=== PATIENT | male | born 1945 | race Caucasian/White ===

== ENCOUNTER → 2018-01-23 11:09 | Outpatient (CLI) | payer MEDICARE, SELFPAY ==
--- NOTE | 2018-01-23 11:09 | DT_ITS ---
This patient was seen during an EMR downtime January 19, 2018 - January 26, 2018. This patient may have a combination of paper and electronic documentation or all paper documentation. All documentation is viewable within the e-chart portion of [employer] for each patient visit.
== END ==
PROVIDERS: Family Provider Family Medicine Geriatric Medicine; PCP Family Medicine Geriatric Medicine; Visit Provider Family Medicine Geriatric Medicine
DX: E11.9 Type 2 diabetes mellitus without complications (principal); I10 Essential (primary) hypertension; E55.9 Vitamin D deficiency, unspecified; E78.4 Other hyperlipidemia

== ENCOUNTER → 2018-01-27 08:21 | Outpatient (CLI) | payer MEDICARE, SELFPAY ==
[2018-01-27 09:44] LABS: Absolute Lymphocyte Count 1.62 X10^3/ul (0.83-4.51); Basophil# 0.03 X10^3/uL; Basophil% 0.3 % (0-1); Eosinophil# 0.16 X10^3/uL; Eosinophils% 1.6 % (0-5); Hemoglobin 14.4 g/dl (13.0-16.5); Lymphocyte # 1.62 X10^3/ul (4.0); Lymphocyte % 16.3 % (19-41); Mean Corpuscular Hgb 32.8 pg (27.0-32.0); Mean Corpuscular Volume 102.5 fL (80-94); Mean Platelet Vol. 10.7 fl (6.2-12.0); Neutrophil # 7.02 X10^3/uL (2.7-7.7); Neutrophil % 70.5 % (47-70); POSITIVE COUNT NO; POSITIVE DIFFERENTIAL NO; POSITIVE MORPHOLOGY NO; Platelet Count 368 K/mm3 (150-450); RBC Distribution Width CV 12.9 % (11.6-14.6); RBC Distribution Width SD 48.5 fl (35.1-43.9); Red Blood Count 4.39 M/mm3 (4.6-6.2)
[2018-01-27 10:33] LABS: AST(SGOT) 10 U/L (15-37); Alanine Aminotransfer ALT/SGPT 21 U/L (16-61); Albumin, Serum 3.8 g/dL (3.2-5.0); Alkaline Phosphatase 91 U/L (45-117); Anion Gap 9 (5-15); BUN 15 mg/dL (7-18); Calcium,Total 9.2 mg/dL (8.5-10.1); Chloride 105 mmol/L (98-107); Cholesterol 96 mg/dL (200); EST Glomerular Filtration Rate 78 mL/min (>60); Est Glom Filt Rate - Afr Amer 95 mL/min (>60); Globulin 3.8 g/dL (2.2-4.2); Glucose 116 mg/dL (74-106); High Density Lipoprotein 39 mg/dL; Potassium 4.1 mmol/L (3.5-5.1); Protein, Total 7.6 g/dL (6.4-8.2); Sodium Level 143 mmol/L (136-145); Thyroid Stim Hormone (TSH) 0.81 uIU/mL (0.358-3.74); Triglycerides 76 mg/dL; Very Low Density Lipoprotein 15 mg/dL (5-40)
[2018-01-28 08:42] LABS: Vitamin D,25 Hydroxy 15.2 ng/mL (29.95-100.01)
== END ==
PROVIDERS: Family Provider Family Medicine Geriatric Medicine; PCP Family Medicine Geriatric Medicine; Visit Provider Family Medicine Geriatric Medicine
DX: E78.4 Other hyperlipidemia (principal); E55.9 Vitamin D deficiency, unspecified; E11.9 Type 2 diabetes mellitus without complications; I10 Essential (primary) hypertension
CPT/HCPCS: 36415; 80053; 80061; 82306; 84443; 85025

== ENCOUNTER → 2018-04-01 13:06 | Outpatient (CLI) | payer MEDICARE, SELFPAY ==
--- NOTE | 2018-04-01 14:32 | NEURO ---
NCS and/or EMG Patient Report Ordering Doctor: Silvano Sandy Chi DATE OF SERVICE: 04/01/18 Bony Garcia is a 72-year-old male presents for electrodiagnostic testing of the left upper limb. He reports numbness and tingling in the left hand. Electrodiagnostic findings: Prolonged left median motor distal latency with normal amplitude and conduction velocity. Prolonged left median sensory latency. Normal ulnar motor response. Normal ulnar and median F waves. Needle EMG testing shows no evidence of denervation in any muscles tested. Electrodiagnostic impression: This is an abnormal study. 1. Electrodiagnostic findings demonstrate left-sided median mononeuropathy. This is consistent with a moderate left carpal tunnel syndrome. If there are any further questions, please not hesitate to contact me
== END ==
PROVIDERS: Family Provider Family Medicine Geriatric Medicine; PCP Family Medicine Geriatric Medicine; Visit Provider Family Medicine Geriatric Medicine
DX: R20.0 Anesthesia of skin (principal)
CPT/HCPCS: 95886; 95909

== ENCOUNTER → 2018-07-27 10:55 | Outpatient (CLI) | payer MEDICARE, SELFPAY ==
[2018-07-27 13:17] LABS: Absolute Lymphocyte Count 1.68 X10^3/ul (0.83-4.51); Absolute Neutrophil Count 6.8 X10^3/uL (2.0-7.7); Basophil# 0.05 X10^3/uL; Basophil% 0.5 % (0-1); Eosinophil# 0.17 X10^3/uL; Eosinophils% 1.8 % (0-5); Hematocrit 41.7 % (40-54); Hemoglobin 12.9 g/dl (13.0-16.5); Lymphocyte # 1.68 X10^3/ul (4.0); Lymphocyte % 17.9 % (19-41); Mean Corp Hgb Conc 30.9 g/gl (32-36); Mean Corpuscular Hgb 32.7 pg (27.0-32.0); Mean Corpuscular Volume 105.6 fL (80-94); Monocyte# 0.64 X10^3/uL; Monocyte% 6.8 % (0-10); Neutrophil # 6.78 X10^3/uL (2.7-7.7); Neutrophil % 72.3 % (47-70); POSITIVE COUNT NO; POSITIVE DIFFERENTIAL NO; POSITIVE MORPHOLOGY NO; Platelet Count 263 K/mm3 (150-450); RBC Distribution Width CV 12.8 % (11.6-14.6); RBC Distribution Width SD 48.8 fl (35.1-43.9); Red Blood Count 3.95 M/mm3 (4.6-6.2); White Blood Count 9.4 K/mm3 (4.4-11.0)
[2018-07-27 13:20] LABS: Vitamin D,25 Hydroxy 41.4 ng/mL (29.95-100.01)
[2018-07-27 13:31] LABS: AST(SGOT) 18 U/L (15-37); Alanine Aminotransfer ALT/SGPT 25 U/L (16-61); Albumin, Serum 3.7 g/dL (3.2-5.0); Alkaline Phosphatase 80 U/L (45-117); Anion Gap 10 (5-15); BUN 22 mg/dL (7-18); BUN/Creat Ratio 18.6 RATIO (10-20); Calcium,Total 8.8 mg/dL (8.5-10.1); Chloride 104 mmol/L (98-107); Cholesterol 146 mg/dL (200); Creatinine, Serum 1.18 mg/dL (0.70-1.30); EST Glomerular Filtration Rate 65 mL/min (>60); Est Glom Filt Rate - Afr Amer 78 mL/min (>60); Globulin 3.8 g/dL (2.2-4.2); Glucose 208 mg/dL (74-106); High Density Lipoprotein 51 mg/dL; Potassium 4.3 mmol/L (3.5-5.1); Protein, Total 7.5 g/dL (6.4-8.2); Sodium Level 143 mmol/L (136-145); Thyroid Stim Hormone (TSH) 0.99 uIU/mL (0.358-3.74); Triglycerides 113 mg/dL; Very Low Density Lipoprotein 23 mg/dL (5-40)
== END ==
PROVIDERS: Family Provider Family Medicine Geriatric Medicine; PCP Family Medicine Geriatric Medicine; Visit Provider Family Medicine Geriatric Medicine
DX: E11.9 Type 2 diabetes mellitus without complications (principal); I10 Essential (primary) hypertension; E78.49 Other hyperlipidemia; E55.9 Vitamin D deficiency, unspecified
CPT/HCPCS: 36415; 80053; 80061; 82306; 84443; 85025

== ENCOUNTER → 2019-01-27 08:43 | Outpatient (CLI) | payer MEDICARE, SELFPAY ==
[2019-01-27 10:33] LABS: Absolute Lymphocyte Count 1.84 X10^3/ul (0.83-4.51); Absolute Neutrophil Count 6.6 X10^3/uL (2.0-7.7); Basophil# 0.05 X10^3/uL; Basophil% 0.5 % (0-1); Eosinophil# 0.24 X10^3/uL; Eosinophils% 2.4 % (0-5); Hematocrit 43.8 % (40-54); Hemoglobin 13.7 g/dl (13.0-16.5); Lymphocyte # 1.84 X10^3/ul (4.0); Lymphocyte % 18.8 % (19-41); Mean Corp Hgb Conc 31.3 g/gl (32-36); Mean Corpuscular Hgb 32.5 pg (27.0-32.0); Mean Corpuscular Volume 103.8 fL (80-94); Mean Platelet Vol. 11.1 fl (6.2-12.0); Monocyte# 1.03 X10^3/uL; Monocyte% 10.5 % (0-10); Neutrophil # 6.59 X10^3/uL (2.7-7.7); Neutrophil % 67.2 % (47-70); Platelet Count 313 K/mm3 (150-450); RBC Distribution Width CV 12.8 % (11.6-14.6); RBC Distribution Width SD 48.2 fl (35.1-43.9); Red Blood Count 4.22 M/mm3 (4.6-6.2); White Blood Count 9.8 K/mm3 (4.4-11.0)
[2019-01-27 10:34] LABS: POSITIVE COUNT NO; POSITIVE DIFFERENTIAL NO; POSITIVE MORPHOLOGY NO
[2019-01-27 10:50] LABS: Vitamin D,25 Hydroxy 20.9 ng/mL (29.95-100.01)
[2019-01-27 10:52] LABS: ALB/GLOB Ratio 1.1 RATIO (0.9-2.4); AST(SGOT) 11 U/L (15-37); Alanine Aminotransfer ALT/SGPT 28 U/L (16-61); Albumin, Serum 4.1 g/dL (3.2-5.0); Alkaline Phosphatase 83 U/L (45-117); Anion Gap 4 (5-15); BUN 20 mg/dL (7-18); BUN/Creat Ratio 14.2 RATIO (10-20); Calcium,Total 8.9 mg/dL (8.5-10.1); Chloride 108 mmol/L (98-107); Cholesterol 96 mg/dL (200); Creatinine, Serum 1.41 mg/dL (0.70-1.30); EST Glomerular Filtration Rate 52 mL/min (>60); Est Glom Filt Rate - Afr Amer 63 mL/min (>60); Globulin 3.6 g/dL (2.2-4.2); Glucose 81 mg/dL (74-106); High Density Lipoprotein 41 mg/dL; Potassium 4.4 mmol/L (3.5-5.1); Protein, Total 7.7 g/dL (6.4-8.2); Sodium Level 141 mmol/L (136-145); Thyroid Stim Hormone (TSH) 0.84 uIU/mL (0.358-3.74); Triglycerides 87 mg/dL; Very Low Density Lipoprotein 17 mg/dL (5-40)
== END ==
PROVIDERS: Family Provider Family Medicine Geriatric Medicine; PCP Family Medicine Geriatric Medicine; Visit Provider Family Medicine Geriatric Medicine
DX: E11.9 Type 2 diabetes mellitus without complications (principal); I10 Essential (primary) hypertension; E78.5 Hyperlipidemia, unspecified; E55.9 Vitamin D deficiency, unspecified
CPT/HCPCS: 36415; 80053; 80061; 82306; 84443; 85025

== ENCOUNTER → 2019-07-28 13:29 | Outpatient (CLI) | payer MEDICARE, SELFPAY ==
[2019-07-28 14:17] LABS: Absolute Lymphocyte Count 1.96 X10^3/uL (0.83-4.51); Absolute Neutrophil Count 7.1 X10^3/uL (2.0-7.7); Basophil# 0.08 X10^3/uL; Basophil% 0.8 % (0-1); Eosinophil# 0.29 X10^3/uL; Eosinophils% 2.8 % (0-5); Hematocrit 44.8 % (40-54); Hemoglobin 13.8 g/dL (13.0-16.5); Lymphocyte # 1.96 X10^3/ul (4.0); Lymphocyte % 19.2 % (19-41); Mean Corp Hgb Conc 30.8 g/dL (32-36); Mean Corpuscular Hgb 32.3 pg (27.0-32.0); Mean Corpuscular Volume 104.9 fL (80-94); Mean Platelet Vol. 11.1 fl (6.2-12.0); Monocyte# 0.76 X10^3/uL; Monocyte% 7.4 % (0-10); NRBC Flagged by Analyzer 0 % (0-5); Neutrophil # 7.08 X10^3/uL (2.7-7.7); Neutrophil % 69.4 % (47-70); Platelet Count 334 K/mm3 (150-450); RBC Distribution Width CV 12.2 % (11.6-14.6); RBC Distribution Width SD 47.9 fl (35.1-43.9); Red Blood Count 4.27 M/mm3 (4.6-6.2); White Blood Count 10.2 K/mm3 (4.4-11.0)
[2019-07-28 14:33] LABS: ALB/GLOB Ratio 1.3 RATIO (0.9-2.4); AST(SGOT) 19 U/L (15-37); Alanine Aminotransfer ALT/SGPT 28 U/L (16-61); Albumin, Serum 4.5 g/dL (3.2-5.0); Alkaline Phosphatase 78 U/L (45-117); Anion Gap 6 (5-15); BUN 20 mg/dL (7-18); BUN/Creat Ratio 14.7 RATIO (10-20); Calcium,Total 9.2 mg/dL (8.5-10.1); Chloride 105 mmol/L (98-107); Cholesterol 111 mg/dL (200); Creatinine, Serum 1.36 mg/dL (0.70-1.30); EST Glomerular Filtration Rate 55 mL/min (>60); Est Glom Filt Rate - Afr Amer 66 mL/min (>60); Globulin 3.5 g/dL (2.2-4.2); Glucose 145 mg/dL (74-106); High Density Lipoprotein 44 mg/dL; Potassium 4.2 mmol/L (3.5-5.1); Sodium Level 140 mmol/L (136-145); Thyroid Stim Hormone (TSH) 0.93 uIU/mL (0.358-3.74); Triglycerides 97 mg/dL; Very Low Density Lipoprotein 19 mg/dL (5-40)
== END ==
PROVIDERS: Family Provider Family Medicine Geriatric Medicine; PCP Family Medicine Geriatric Medicine; Visit Provider Family Medicine Geriatric Medicine
DX: E11.9 Type 2 diabetes mellitus without complications (principal); E55.9 Vitamin D deficiency, unspecified; E78.5 Hyperlipidemia, unspecified; I10 Essential (primary) hypertension
CPT/HCPCS: 36415; 80053; 80061; 82306; 84443; 85025

== ENCOUNTER → 2020-01-26 11:24 | Outpatient (CLI) | payer MEDICARE, SELFPAY ==
[2020-01-26 12:31] LABS: Absolute Lymphocyte Count 1.53 X10^3/uL (0.83-4.51); Absolute Neutrophil Count 5.9 X10^3/uL (2.0-7.7); Basophil# 0.06 X10^3/uL; Basophil% 0.7 % (0-1); Eosinophil# 0.21 X10^3/uL; Eosinophils% 2.5 % (0-5); Hematocrit 43.3 % (40-54); Hemoglobin 13.3 g/dL (13.0-16.5); Lymphocyte # 1.53 X10^3/ul (4.0); Lymphocyte % 18.3 % (19-41); Mean Corp Hgb Conc 30.7 g/dL (32-36); Mean Corpuscular Hgb 32.5 pg (27.0-32.0); Mean Corpuscular Volume 105.9 fL (80-94); Mean Platelet Vol. 11.6 fl (6.2-12.0); Monocyte# 0.64 X10^3/uL; Monocyte% 7.6 % (0-10); NRBC Flagged by Analyzer 0 % (0-5); Neutrophil # 5.91 X10^3/uL (2.7-7.7); Neutrophil % 70.7 % (47-70); Platelet Count 329 K/mm3 (150-450); RBC Distribution Width CV 12.6 % (11.6-14.6); RBC Distribution Width SD 49.2 fl (35.1-43.9); Red Blood Count 4.09 M/mm3 (4.6-6.2); White Blood Count 8.4 K/mm3 (4.4-11.0)
[2020-01-26 12:53] LABS: Vitamin D,25 Hydroxy 18.4 ng/mL
[2020-01-26 12:57] LABS: ALB/GLOB Ratio 1.2 RATIO (0.9-2.4); AST(SGOT) 18 U/L (15-37); Alanine Aminotransfer ALT/SGPT 25 U/L (16-61); Albumin, Serum 4.2 g/dL (3.2-5.0); Alkaline Phosphatase 87 U/L (45-117); Anion Gap 6 (5-15); BUN 16 mg/dL (7-18); BUN/Creat Ratio 10.7 RATIO (10-20); Calcium,Total 9.3 mg/dL (8.5-10.1); Chloride 109 mmol/L (98-107); Cholesterol 100 mg/dL (200); Creatinine, Serum 1.49 mg/dL (0.70-1.30); EST Glomerular Filtration Rate 49 mL/min (>60); Est Glom Filt Rate - Afr Amer 59 mL/min (>60); Globulin 3.6 g/dL (2.2-4.2); Glucose 105 mg/dL (74-106); High Density Lipoprotein 39 mg/dL; Potassium 4.1 mmol/L (3.5-5.1); Protein, Total 7.8 g/dL (6.4-8.2); Sodium Level 143 mmol/L (136-145); Thyroid Stim Hormone (TSH) 0.63 uIU/mL (0.358-3.74); Triglycerides 91 mg/dL; Very Low Density Lipoprotein 18 mg/dL (5-40)
== END ==
PROVIDERS: PCP Family Medicine Geriatric Medicine; Visit Provider Family Medicine Geriatric Medicine
DX: E11.9 Type 2 diabetes mellitus without complications (principal); E55.9 Vitamin D deficiency, unspecified; E78.5 Hyperlipidemia, unspecified; I10 Essential (primary) hypertension
CPT/HCPCS: 36415; 80053; 80061; 82306; 84443; 85025

== ENCOUNTER → 2020-08-01 10:39 | Outpatient (CLI) | payer MEDICARE, SELFPAY ==
[2020-08-01 12:19] LABS: Absolute Lymphocyte Count 1.67 X10^3/uL (0.83-4.51); Basophil# 0.07 X10^3/uL; Basophil% 0.9 % (0-1); Eosinophil# 0.18 X10^3/uL; Eosinophils% 2.4 % (0-5); Hematocrit 43.8 % (40-54); Hemoglobin 13.2 g/dL (13.0-16.5); Lymphocyte # 1.67 X10^3/ul (4.0); Lymphocyte % 22.1 % (19-41); Mean Corp Hgb Conc 30.1 g/dL (32-36); Mean Corpuscular Volume 106.3 fL (80-94); Mean Platelet Vol. 11.5 fl (6.2-12.0); Monocyte# 0.62 X10^3/uL; Monocyte% 8.2 % (0-10); NRBC Flagged by Analyzer 0 % (0-5); Neutrophil # 4.98 X10^3/uL (2.7-7.7); Platelet Count 294 K/mm3 (150-450); RBC Distribution Width CV 13.2 % (11.6-14.6); Red Blood Count 4.12 M/mm3 (4.6-6.2); White Blood Count 7.6 K/mm3 (4.4-11.0)
[2020-08-01 12:37] LABS: Vitamin D,25 Hydroxy 12.2 ng/mL
[2020-08-01 13:00] LABS: ALB/GLOB Ratio 1.2 RATIO (0.9-2.4); AST(SGOT) 11 U/L (15-37); Alanine Aminotransfer ALT/SGPT 23 U/L (16-61); Albumin, Serum 4.2 g/dL (3.2-5.0); Alkaline Phosphatase 99 U/L (45-117); Anion Gap 5 (5-15); BUN 22 mg/dL (7-18); Chloride 110 mmol/L (98-107); Cholesterol 105 mg/dL (200); Creatinine, Serum 1.47 mg/dL (0.70-1.30); EST Glomerular Filtration Rate 50 mL/min (>60); Est Glom Filt Rate - Afr Amer 60 mL/min (>60); Globulin 3.5 g/dL (2.2-4.2); Glucose 143 mg/dL (74-106); High Density Lipoprotein 50 mg/dL; Potassium 4.7 mmol/L (3.5-5.1); Protein, Total 7.7 g/dL (6.4-8.2); Sodium Level 144 mmol/L (136-145); Thyroid Stim Hormone (TSH) 0.99 uIU/mL (0.358-3.74); Triglycerides 70 mg/dL; Very Low Density Lipoprotein 14 mg/dL (5-40)
== END ==
PROVIDERS: PCP Family Medicine Geriatric Medicine; Visit Provider Family Medicine Geriatric Medicine
DX: I10 Essential (primary) hypertension (principal); E11.9 Type 2 diabetes mellitus without complications; E55.9 Vitamin D deficiency, unspecified; E78.5 Hyperlipidemia, unspecified
CPT/HCPCS: 36415; 80053; 80061; 82306; 84443; 85025

== ENCOUNTER → 2020-10-20 10:43 | Outpatient (CLI) | payer MEDICARE, SELFPAY ==
--- NOTE | 2020-10-20 10:47 | RAD_ITS ---
STUDY: X-RAY CHEST REASON FOR EXAM: Male, 75 years old. SOB TECHNIQUE: Frontal and lateral views COMPARISON: None. FINDINGS: The lungs are hyperaerated. Bilateral interstitial prominence. Small effusions with basilar atelectasis bilaterally. Normal size heart. Normal mediastinum and evelyn. Normal visualized pulmonary arteries. Normal visualized aortic arch and descending thoracic aorta. Normal visualized thoracic spine. Normal visualized ribs, clavicles, and shoulders. There is no demonstrated abnormality of the visualized soft tissue structures of the upper abdomen. RAD/Chest PA and Lateral IMPRESSION: The lungs are hyperaerated. Bilateral interstitial prominence. Small effusions with basilar atelectasis bilaterally. Electronically Signed: Raghav Sierra DO at 17:18 EST Tel [phone], Service support ,
== END ==
PROVIDERS: PCP Family Medicine Geriatric Medicine; Referring Provider Family Medicine Geriatric Medicine; Visit Provider Family Medicine Geriatric Medicine
DX: R06.02 Shortness of breath (principal)
CPT/HCPCS: 71046

== ENCOUNTER → 2020-11-23 10:01 | Outpatient (CLI) | payer MEDICARE, SELFPAY ==
--- NOTE | 2020-11-24 08:43 | PFT ---
INTRODUCTION: The patient is a 75-year-old male that presents for pulmonary function studies secondary to a diagnosis of shortness of breath. Respiratory therapy reports good patient effort. Bronchodilators were used during testing. INTERPRETATION: Forced expiration spirometry demonstrates the presence of a very severe large airways obstructive ventilatory defect. There was no significant response to aerosolized bronchodilators. Spirograms are of fair quality but do not plateau indicating slow emptying of the lungs. Body plethysmography was performed and reveals lung volumes to be within normal limits. Diffusing capacity by single breath CO is reduced at 42% of predicted. IMPRESSION: Irreversible very severe large airways obstructive ventilatory defect with preserved lung volumes and symmetric reduction in diffusing capacity.
== END ==
PROVIDERS: PCP Family Medicine Geriatric Medicine; Referring Provider Family Medicine Geriatric Medicine; Visit Provider Family Medicine Geriatric Medicine
DX: R06.02 Shortness of breath (principal)
CPT/HCPCS: 94060; 94726; 94729

== ENCOUNTER → 2021-01-25 12:08 | Outpatient (CLI) | payer MEDICARE, SELFPAY ==
[2021-01-25 12:31] LABS: Absolute Lymphocyte Count 1.83 X10^3/uL (0.83-4.51); Basophil# 0.07 X10^3/uL; Basophil% 0.7 % (0-1); Eosinophil# 0.16 X10^3/uL; Eosinophils% 1.6 % (0-5); Hematocrit 40.8 % (40-54); Hemoglobin 12.4 g/dL (13.0-16.5); Lymphocyte # 1.83 X10^3/ul (0.83-4.51); Lymphocyte % 18.6 % (19-41); Mean Corp Hgb Conc 30.4 g/dL (32-36); Mean Corpuscular Hgb 31.5 pg (27.0-32.0); Mean Corpuscular Volume 103.6 fL (80-94); Monocyte# 0.74 X10^3/uL; Monocyte% 7.5 % (0-10); NRBC Flagged by Analyzer 0 % (0-5); Neutrophil # 6.97 X10^3/uL (2.7-7.7); Neutrophil % 71.1 % (47-70); Platelet Count 305 K/mm3 (150-450); RBC Distribution Width CV 13.7 % (11.6-14.6); RBC Distribution Width SD 52.6 fl (35.1-43.9); Red Blood Count 3.94 M/mm3 (4.6-6.2); White Blood Count 9.8 K/mm3 (4.4-11.0)
[2021-01-25 12:54] LABS: ALB/GLOB Ratio 1.1 RATIO (0.9-2.4); AST(SGOT) 10 U/L (15-37); Alanine Aminotransfer ALT/SGPT 17 U/L (16-61); Albumin, Serum 3.9 g/dL (3.2-5.0); Alkaline Phosphatase 101 U/L (45-117); Anion Gap 4 (5-15); BUN 22 mg/dL (7-18); BUN/Creat Ratio 10.9 RATIO (10-20); Chloride 112 mmol/L (98-107); Creatinine, Serum 2.02 mg/dL (0.70-1.30); EST Glomerular Filtration Rate 34 mL/min (>60); Est Glom Filt Rate - Afr Amer 42 mL/min (>60); Globulin 3.4 g/dL (2.2-4.2); Glucose 139 mg/dL (74-106); Potassium 4.7 mmol/L (3.5-5.1); Protein, Total 7.3 g/dL (6.4-8.2); Sodium Level 144 mmol/L (136-145)
[2021-01-25 13:07] LABS: D-Dimer Quantitative (DVT/PE) 0.65 FEU/ug/m (0.27-0.49)
== END ==
PROVIDERS: PCP Family Medicine Geriatric Medicine; Visit Provider Family Medicine Geriatric Medicine
DX: R60.9 Edema, unspecified (principal); R06.89 Other abnormalities of breathing; R06.02 Shortness of breath; R06.9 Unspecified abnormalities of breathing
CPT/HCPCS: 36415; 80053; 83880; 85025; 85379

== ENCOUNTER → 2021-01-26 11:15 | Outpatient (CLI) | payer MEDICARE, SELFPAY ==
--- NOTE | 2021-01-26 11:30 | RAD_ITS ---
STUDY: X-RAY CHEST REASON FOR EXAM: Male, 75 years old. SOB TECHNIQUE: PA and lateral views of the chest. COMPARISON: 10/20/2020 FINDINGS: There is hyperinflation of the lungs consistent with chronic obstructive lung disease (COPD). There is no demonstrated pleural abnormality. Normal size heart. Normal mediastinum and evelyn. Normal visualized pulmonary arteries. Normal visualized aortic arch and descending thoracic aorta. Normal visualized thoracic spine. Normal visualized ribs, clavicles, and shoulders. There is no demonstrated abnormality of the visualized soft tissue structures of the upper abdomen. RAD/Chest PA and Lateral IMPRESSION: Emphysema without pneumonia or atelectasis. Electronically Signed: Trent Estevez MD at 11:19 EDT Tel , Service support ,
[2021-01-26 13:42] LABS: BNP,B-Type NATRIURETIC PEPTIDE 1882.7 pg/mL (0-100)
[2021-01-26 13:45] LABS: CPK Total, Creatine Kinase 261 U/L (39-308)
[2021-01-27 10:05] LABS: Myoglobin, Serum 288 ng/mL (28-72)
== END ==
PROVIDERS: PCP Family Medicine Geriatric Medicine; Referring Provider Family Medicine Geriatric Medicine; Visit Provider Family Medicine Geriatric Medicine
DX: I50.9 Heart failure, unspecified (principal); R06.02 Shortness of breath
CPT/HCPCS: 36415; 71046; 82550; 83874; 83880; 84484

== ENCOUNTER → 2021-02-06 10:58 | Outpatient (CLI) | payer MEDICARE, SELFPAY ==
--- NOTE | 2021-02-06 11:00 | ECHOCS_ITS ---
Reason For Study: CHF Procedure This was a 2D Doppler, Color Flow transthoracic echocardiogram. The study was technically difficult. Contrast injection was performed. Exam performed in department. Left Ventricle Normal LV size. Moderate global left ventricular systolic dysfunction. The estimated ejection fraction is 35 %. Unable to assess diastolic dysfunction. Right Ventricle Normal RV size. Normal systolic function. Atria Normal left atrium. Normal right atrium. No doppler evidence for ASD. Bubble contrast study negative for right to left interatrial shunt. Mitral Valve There is no mitral annular calcification. Normal mitral valve. Trivial mitral valve insufficiency. Tricuspid Valve Normal tricuspid valve. Trivial tricuspid valve insufficiency. Unable to estimate RV systolic pressure/pulmonary artery pressure due to technically difficult study. Aortic Valve Trisinus/trileaflet aortic valve. Mild focal aortic valve calcification. Pulmonic Valve The pulmonic valve is not well visualized. Great Vessels The aortic root is not well visualized. Pericardium/Pleural No pericardial effusion. Medication 22 gauge I.V. with prn adaptor inserted into right arm. Diluted definity 3ml given slow IV push to enhance endocardial definition. Performed a rapid injection of agitated mix of 9 cc saline and 1cc air to assess for atrial septal defect. MMode/2D Measurements & Calculations LVIDd: 5.7 cm IVSd: 0.93 cm LA dimension: 3.2 cm LVIDs: 4.6 cm LVPWd: 1.2 cm FS: 19.9 % LAV(MOD-sp4): 30.1 ml LA A4 area: 13.3 cm2 RA A4 area: 11.1 cm2 Time Measurements MV dec time: 0.23 sec Doppler Measurements & Calculations MV E max mauricio: 73.6 cm/sec Ao V2 max: 122.6 cm/sec LV V1 max: 94.4 cm/sec MV A max mauricio: 66.1 cm/sec Ao max P.2 mmHg LV V1 max P.8 mmHg MV E/A: 1.1 PA V2 max: 91.6 cm/sec ECHO/Echo Complete W/ Contrast Interpretation Summary The study was technically difficult. Contrast injection was performed. Moderate global left ventricular systolic dysfunction. The estimated ejection fraction is 35 %. Trivial mitral valve insufficiency. Trivial tricuspid valve insufficiency. Mild focal aortic valve calcification. Unable to estimate RV systolic pressure/pulmonary artery pressure due to techni chante difficult study. Unable to assess diastolic dysfunction. Ordering Physician: Slivano Sandy Referring Physician: Silvano Sandy Chi Performed By: Mendez Presley RCS
== END ==
PROVIDERS: PCP Family Medicine Geriatric Medicine; Referring Provider Family Medicine Geriatric Medicine; Visit Provider Family Medicine Geriatric Medicine
DX: I50.9 Heart failure, unspecified (principal); R06.02 Shortness of breath
CPT/HCPCS: 93306; Q9957; A4216; C8929; J3490

== ENCOUNTER → 2021-02-07 13:29 | Outpatient (CLI) | payer MEDICARE, SELFPAY ==
[2021-02-07 17:05] LABS: Anion Gap 7 (5-15); BUN 69 mg/dL (7-18); BUN/Creat Ratio 28.6 RATIO (10-20); Calcium,Total 9.3 mg/dL (8.5-10.1); Chloride 107 mmol/L (98-107); Creatinine, Serum 2.41 mg/dL (0.70-1.30); EST Glomerular Filtration Rate 28 mL/min (>60); Est Glom Filt Rate - Afr Amer 34 mL/min (>60); Glucose 200 mg/dL (74-106); Potassium 4.8 mmol/L (3.5-5.1); Sodium Level 141 mmol/L (136-145)
== END ==
PROVIDERS: PCP Family Medicine Geriatric Medicine; Visit Provider Family Medicine Geriatric Medicine
DX: I50.23 Acute on chronic systolic (congestive) heart failure (principal)
CPT/HCPCS: 36415; 80048

== ENCOUNTER → 2021-02-09 11:07 | Outpatient (CLI) | payer MEDICARE, SELFPAY ==
[2021-02-09 13:10] LABS: Anion Gap 5 (5-15); BUN 53 mg/dL (7-18); BUN/Creat Ratio 25.1 RATIO (10-20); Calcium,Total 9.1 mg/dL (8.5-10.1); Chloride 109 mmol/L (98-107); Creatinine, Serum 2.11 mg/dL (0.70-1.30); EST Glomerular Filtration Rate 33 mL/min (>60); Est Glom Filt Rate - Afr Amer 40 mL/min (>60); Glucose 227 mg/dL (74-106); Sodium Level 138 mmol/L (136-145)
== END ==
PROVIDERS: PCP Family Medicine Geriatric Medicine; Referring Provider Family Medicine Geriatric Medicine; Visit Provider Family Medicine Geriatric Medicine
DX: N17.9 Acute kidney failure, unspecified (principal)
CPT/HCPCS: 36415; 80048

== ENCOUNTER → 2021-02-12 10:18 | Outpatient (CLI) | payer MEDICARE, SELFPAY ==
[2021-02-12 12:47] LABS: Anion Gap 7 (5-15); BUN 47 mg/dL (7-18); BUN/Creat Ratio 22.3 RATIO (10-20); Calcium,Total 9.6 mg/dL (8.5-10.1); Chloride 109 mmol/L (98-107); Creatinine, Serum 2.11 mg/dL (0.70-1.30); EST Glomerular Filtration Rate 33 mL/min (>60); Est Glom Filt Rate - Afr Amer 40 mL/min (>60); Glucose 180 mg/dL (74-106); Potassium 5.2 mmol/L (3.5-5.1); Sodium Level 139 mmol/L (136-145)
== END ==
PROVIDERS: PCP Family Medicine Geriatric Medicine; Visit Provider Family Medicine Geriatric Medicine
DX: E87.6 Hypokalemia (principal)
CPT/HCPCS: 36415; 80048

== ENCOUNTER → 2021-02-14 09:42 | Outpatient (CLI) | payer MEDICARE, SELFPAY ==
[2021-02-14 12:49] LABS: Anion Gap 5 (5-15); BUN 42 mg/dL (7-18); BUN/Creat Ratio 19.8 RATIO (10-20); Calcium,Total 9.4 mg/dL (8.5-10.1); Chloride 111 mmol/L (98-107); Creatinine, Serum 2.12 mg/dL (0.70-1.30); EST Glomerular Filtration Rate 33 mL/min (>60); Est Glom Filt Rate - Afr Amer 39 mL/min (>60); Glucose 203 mg/dL (74-106); Potassium 5.1 mmol/L (3.5-5.1); Sodium Level 139 mmol/L (136-145)
== END ==
PROVIDERS: PCP Family Medicine Geriatric Medicine; Visit Provider Family Medicine Geriatric Medicine
DX: I10 Essential (primary) hypertension (principal)
CPT/HCPCS: 36415; 80048

== ENCOUNTER → 2021-02-16 12:21 | Outpatient (CLI) | payer MEDICARE, SELFPAY ==
--- NOTE | 2021-02-16 12:37 | US_ITS ---
STUDY: RENAL ULTRASOUND - COMPLETE REASON FOR EXAM: Male, 75 years old. CKD TECHNIQUE: Ultrasound evaluation of the kidneys was performed with real-time and static avilez-scale imaging. COMPARISON: None. FINDINGS: RIGHT KIDNEY: Normal location of the right kidney, which is normal in size. The right kidney measures 9.6 cm x 4.1 cm x 5.4 cm. There is a normal cortex of the right kidney. The renal cortex measures 1.5 cm. There is no right renal mass or cyst. Multiple intrarenal calculi are seen. The largest measures 1.5 cm x 1.5 cm x 1.4 cm. There is no right hydronephrosis. DISTAL RIGHT URETER: There is non-visualization of the distal right ureter. There is no demonstrated right ureterovesical junction calculus. There is no demonstrated right ureteral jet. LEFT KIDNEY: Normal location of the left kidney, which is normal in size. The left kidney measures 10.1 cm x 4.4 cm x 5 cm. There is a normal cortex of the left kidney. The renal cortex measures 1.5 cm. There is no left renal mass or cyst. Multiple left intrarenal calculi are seen. The largest measures 1.3 cm x 1.7 cm x 0.8 cm. There is no left hydronephrosis. DISTAL LEFT URETER: There is non-visualization of the distal left ureter. There is no demonstrated left ureterovesical junction calculus. There is no demonstrated left ureteral jet. BLADDER: The distended urinary bladder has a volume of 42 ml. Multiple calculi are seen at the base of the bladder. Prostate is enlarged. US/Kidney and Bladder IMPRESSION: Multiple bilateral renal calculi. Multiple calculi are seen at the base of the bladder. Prostatic enlargement. Electronically Signed: Ariel White MD at 13:56 EDT , Service support ,
== END ==
PROVIDERS: PCP Family Medicine Geriatric Medicine; Referring Provider Internal Medicine Nephrology; Visit Provider Internal Medicine Nephrology
DX: N18.32 Chronic kidney disease, stage 3b (principal)
CPT/HCPCS: 76770

== ENCOUNTER → 2021-02-23 09:17 | Outpatient (CLI) | payer MEDICARE, SELFPAY ==
[2021-02-23 12:01] LABS: Anion Gap 4 (5-15); BUN 25 mg/dL (7-18); BUN/Creat Ratio 12.6 RATIO (10-20); Calcium,Total 9.6 mg/dL (8.5-10.1); Chloride 110 mmol/L (98-107); Creatinine, Serum 1.99 mg/dL (0.70-1.30); EST Glomerular Filtration Rate 35 mL/min (>60); Est Glom Filt Rate - Afr Amer 42 mL/min (>60); Glucose 185 mg/dL (74-106); Potassium 4.3 mmol/L (3.5-5.1); Sodium Level 141 mmol/L (136-145)
== END ==
PROVIDERS: PCP Family Medicine Geriatric Medicine; Visit Provider Family Medicine Geriatric Medicine
DX: E87.6 Hypokalemia (principal)
CPT/HCPCS: 36415; 80048

== ENCOUNTER → 2021-03-02 11:06 | Outpatient (CLI) | payer MEDICARE, SELFPAY ==
[2021-03-02 12:57] LABS: Anion Gap 8 (5-15); BUN 24 mg/dL (7-18); BUN/Creat Ratio 11.2 RATIO (10-20); Calcium,Total 8.7 mg/dL (8.5-10.1); Chloride 108 mmol/L (98-107); Creatinine, Serum 2.14 mg/dL (0.70-1.30); EST Glomerular Filtration Rate 32 mL/min (>60); Est Glom Filt Rate - Afr Amer 39 mL/min (>60); Glucose 174 mg/dL (74-106); Potassium 4.1 mmol/L (3.5-5.1); Sodium Level 142 mmol/L (136-145)
== END ==
PROVIDERS: PCP Family Medicine Geriatric Medicine; Visit Provider Family Medicine Geriatric Medicine
DX: E87.6 Hypokalemia (principal)
CPT/HCPCS: 36415; 80048

== ENCOUNTER → 2021-03-06 09:19 | Outpatient (CLI) | payer MEDICARE, SELFPAY ==
[2021-03-06 10:31] LABS: Hematocrit 43.9 % (40-54); Hemoglobin 13.6 g/dL (13.0-16.5); Mean Corpuscular Hgb 31.7 pg (27.0-32.0); Mean Corpuscular Volume 102.3 fL (80-94); Platelet Count 264 K/mm3 (150-450); RBC Distribution Width CV 13.4 % (11.6-14.6); Red Blood Count 4.29 M/mm3 (4.6-6.2); White Blood Count 7.4 K/mm3 (4.4-11.0)
[2021-03-06 10:41] LABS: Protein, Urine (Random) 61.5 mg/dL (<11.9); Protein:Creat Ratio 480 mg/g CRE (0-200)
[2021-03-06 11:13] LABS: PTHIN 148.1 pg/mL (18.4-80.1)
[2021-03-06 11:16] LABS: Albumin, Serum 3.7 g/dL (3.2-5.0); BUN 26 mg/dL (7-18); BUN/Creat Ratio 13.4 RATIO (10-20); Calcium,Total 8.8 mg/dL (8.5-10.1); Chloride 108 mmol/L (98-107); Creatinine, Serum 1.94 mg/dL (0.70-1.30); EST Glomerular Filtration Rate 36 mL/min (>60); Est Glom Filt Rate - Afr Amer 44 mL/min (>60); Glucose 188 mg/dL (74-106); Phosphorus 2.8 mg/dL (2.5-4.9); Sodium Level 143 mmol/L (136-145)
== END ==
PROVIDERS: PCP Family Medicine Geriatric Medicine; Referring Provider Internal Medicine Nephrology; Visit Provider Internal Medicine Nephrology
DX: N18.32 Chronic kidney disease, stage 3b (principal)
CPT/HCPCS: 36415; 80069; 82570; 83970; 84156; 85027

== ENCOUNTER 2021-04-17 11:54 | Inpatient (IN) | payer MEDICARE, SELFPAY ==
[2021-04-17] VITALS (14 sets, daily range): BP systolic 125–161; BP diastolic 73–90; PULSE 92–115; RESP 18–28; TEMP 36.2–37.2; O2SAT 78–100; BMI 23.5; BMI 22.5
--- NOTE | 2021-04-17 12:17 | EKG12_ITS ---
Test Reason : SOB Blood Pressure : / mmHG Vent. Rate : 107 BPM Atrial Rate : 104 BPM P-R Int : 000 ms QRS Dur : 082 ms QT Int : 334 ms P-R-T Axes : 000 -28 252 degrees QTc Int : 445 ms Ectopic atrial rhythm ST & T wave abnormality, consider lateral ischemia Abnormal ECG Confirmed by VICENTE WINN, ABHISHEK ([id number]), film or videotape editor MAGDA CRISOSTOMO ([id number]) on 04/19/2021 8:44:32 AM Referred By: Confirmed By:ABHISHEK ZHANG MD
[2021-04-17 12:30] LABS: Absolute Lymphocyte Count 0.89 X10^3/uL (0.83-4.51); Absolute Neutrophil Count 8.3 X10^3/uL (2.0-7.7); Basophil# 0.06 X10^3/uL; Basophil% 0.6 % (0-1); Eosinophil# 0.04 X10^3/uL; Eosinophils% 0.4 % (0-5); Hematocrit 40.6 % (40-54); Hemoglobin 12.4 g/dL (13.0-16.5); Lymphocyte # 0.89 X10^3/ul (0.83-4.51); Lymphocyte % 8.9 % (19-41); Mean Corp Hgb Conc 30.5 g/dL (32-36); Mean Corpuscular Hgb 31.6 pg (27.0-32.0); Mean Corpuscular Volume 103.6 fL (80-94); Mean Platelet Vol. 12.1 fl (6.2-12.0); Monocyte# 0.71 X10^3/uL; Monocyte% 7.1 % (0-10); NRBC Flagged by Analyzer 0 % (0-5); Neutrophil # 8.27 X10^3/uL (2.7-7.7); Neutrophil % 82.5 % (47-70); Platelet Count 303 K/mm3 (150-450); RBC Distribution Width CV 14.1 % (11.6-14.6); Red Blood Count 3.92 M/mm3 (4.6-6.2)
--- NOTE | 2021-04-17 12:33 | EDS_ITS ---
HPI History of Present Illness Chief Complaint: Shortness of Breath Informant: patient Narrative Narrative: Patient is a 75-year-old male with a past medical history of hypertension, hyperlipidemia, heart failure, COPD who presents to the emergency department for shortness of breath. Patient states that his initial symptoms started Friday and have been progressively getting worse. He denies experiencing this before in the past. No associated chest pain. He has been coughing up a phlegm in the morning which does help. He does have breathing treatments at home. Patient's neighbor was called over and she checked his pulse ox for him. He was satting 78% on room air. He does not wear supplemental oxygen. He was very lópez in color per the neighbor. Whenever EMS arrived they gave Solu-Medrol and breathing treatments and he has significantly improved. Patient denies any fevers or chills. No nausea/vomiting or diarrhea. He is feeling much better at time of arrival. He does not know of any sick contacts. He has been vaccinated for Covid. [facility] Medical History BPH (benign prostatic hyperplasia) Chronic HFrEF (heart failure with reduced ejection fraction) Chronic kidney disease (CKD) COPD (chronic obstructive pulmonary disease) Essential hypertension Hyperlipidemia Renal calculi Type 2 diabetes mellitus Home Medications albuterol sulfate [Ventolin HFA] 2 puff INHALATION Q4H PRN PRN 06/04/13 [History Last Taken 04/17/21] fluticasone fur. 200 mcg-umeclid 62.5 mcg-vilant 25 mcg inhalat.powder 1 inh INHALATION DAILY 03/20/21 [History Last Taken 04/17/21] glimepiride 1 mg tablet 1 mg PO DAILY 03/20/21 [History Last Taken 04/17/21] metformin 500 mg tablet 500 mg PO BID 03/20/21 [History Last Taken 04/17/21] pravastatin 40 mg tablet 40 mg PO QHS 03/20/21 [History Last Taken 04/16/21] tamsulosin 0.4 mg capsule 0.4 mg PO DAILY 03/20/21 [History Last Taken 04/16/21] carvedilol 6.25 mg tablet 6.25 mg PO BID #60 tab 04/04/21 [Rx Last Taken 04/17/21] budesonide-formoterol [Symbicort] 2 inh INHALATION DAILY 04/17/21 [History Last Taken 04/17/21] sacubitril-valsartan [Entresto] 1 tab PO BID 04/17/21 [History Last Taken 04/17/21] Allergy/AdvReac Type Severity Reaction Status Date / Time Penicillins Allergy Swelling Verified 04/17/21 12:01 Social History Smoking Status: Current every day smoker tobacco type: cigarettes ROS ROS ED Constitutional Constitutional ED: Denies chills or fever(s) Eyes Eyes: Denies change in vision ENT ENT ED: Denies epistaxis or rhinorrhea Cardiovascular Cardiovascular: Denies chest pain or palpitations Respiratory/Chest Respiratory/Chest: Reports cough, dyspnea and sputum Gastrointestinal Gastrointestinal: Denies abdominal pain, diarrhea, nausea or vomiting Musculoskeletal Musculoskeletal: Denies back pain or neck pain Integumentary Denies rash Neurologic Neurologic: Denies dizziness, headache(s) or weakness EXAM Physical Exam Const Vital Signs: 04/17/21 11:55 04/17/21 11:59 04/17/21 12:17 Temperature 97.8 F 97.8 F Temperature Source Oral Oral Pulse Rate 108 H 108 H Respiratory Rate 25 H 24 H Respiratory Effort Short of Breath Labored Blood Pressure 144/79 H 144/79 H Blood Pressure Mean 100 100 Pulse Ox 78 78 Oxygen Delivery Method Room Air Room Air Nasal Cannula Oxygen Flow Rate (L/min) 04/17/21 12:18 04/17/21 12:59 04/17/21 14:38 Temperature 99 F 97.2 F L Temperature Source Temporal Temporal Pulse Rate 107 H 115 H Respiratory Rate 23 H 28 H Respiratory Effort Blood Pressure 125/73 H 161/86 H Blood Pressure Mean 90 111 Pulse Ox 100 98 96 Oxygen Delivery Method Nasal Cannula Nasal Cannula Nasal Cannula Oxygen Flow Rate (L/min) 5 04/17/21 15:23 Temperature 98.2 F Temperature Source Temporal Pulse Rate 114 H Respiratory Rate 18 Respiratory Effort Blood Pressure 155/89 H Blood Pressure Mean 111 Pulse Ox 94 Oxygen Delivery Method Nasal Cannula Oxygen Flow Rate (L/min) Positive well nourished and well developed General Appearance ED: well developed and NAD HEENT Reports normocephalic, head/scalp atraumatic and moist mucous membranes Eyes PERRL and EOMs intact bilaterally Neck supple Chest Wall inspection of chest normal Resp normal respiratory effort and clear to auscultation bilaterally Auscultation: Negative for rales, rhonchi or wheezes Cardio regular rhythm and no murmurs Rate: tachycardic GI normal to inspection, nondistended, normoactive bowel sounds and non-tender Palpation: soft; Negative for guarding or rebound tenderness present Extremity normal to inspection General Extremety ED: Negative for edema or tenderness General Extremity: Negative for edema Neuro Sensorium / Orientation: alert Motor Exam: strength 5/5 throughout Psych mental status grossly normal Skin no rashes or lesions noted MDM MDM MDM Narrative Medical decision making narrative: Patient presents to the emergency department for shortness of breath. He did receive breathing treatments and Solu-Medrol by EMS. On arrival to the ED he is starting to feel better. He was hypoxic on room air. He is requiring supplemental oxygen at this time. He does appear more comfortable. EKG, chest x-ray and basic lab work being obtained. Patient's chest x-ray did show congestion with pleural effusions. His BNP is greater than 5000. His troponin is not significantly elevated. His creatinine is 1.73. We will give him a dose of Lasix here. Patient becomes very tachypneic upon trying to ambulate to use the restroom. He is requiring 5 L of supplemental oxygen. This time patient not requiring BiPAP but may need this if he develops any worsening symptoms. He otherwise has remained stable throughout ED stay. Will bring into the hospital for further evaluation and management. Lab Data Labs: Laboratory Results - last 24 hr 04/17/21 04/17/21 04/17/21 12:05 12:05 12:05 WBC 10.0 RBC 3.92 L Hgb 12.4 L Hct 40.6 MCV 103.6 H MCH 31.6 MCHC 30.5 L RDW Std Deviation 54.0 H RDW Coeff of Naty 14.1 Plt Count 303 MPV 12.1 H Immature Gran % (Auto) 0.500 Neut % (Auto) 82.5 H Lymph % (Auto) 8.9 L [place] % (Auto) 7.1 Eos % (Auto) 0.4 Baso % (Auto) 0.6 Absolute Neuts (auto) 8.3 H Absolute Lymphs (auto) 0.89 Nucleated RBC % 0 Sodium 141 Potassium 4.3 Chloride 110 H Carbon Dioxide 26.0 Anion Gap 5 BUN 22 H Creatinine 1.73 H Estim Creat Clear Calc 39.90 Est GFR (MDRD) Af Amer 50 L Est GFR (MDRD) Non-Af 41 L BUN/Creatinine Ratio 12.7 Glucose 194 H Calcium 9.3 Magnesium 2.2 Troponin I High Sens 23 B-Natriuretic Peptide > 5000.0 H Radiography Diagnostic Testing: Radiology Impression Chest X-Ray 04/17/21 12:45 IMPRESSION: No new focal patchy airspace opacities COPD/emphysema with coarse lung markings Stable costophrenic angle blunting Electronically Signed: Lasha Resendiz, DO at 13:05 EDT Tel , Service support , EKG Initial EKG: Attestation: I personally reviewed and interpreted this EKG as follows: (Rate of 107 bpm and sinus tachycardia. Normal intervals. Left axis deviation. No significant ST elevations or depressions. There are T wave inversions in the V5 and V6 lead.) Discharge Plan Dx/Rx/DC Orders Clinical Impression: Acute exacerbation of CHF (congestive heart failure), Hypoxia Disposition Disposition: Acute Care Hospital [facility] Discharge Date/Time: 04/17/21 16:13
--- NOTE | 2021-04-17 12:45 | RAD_ITS ---
STUDY: X-RAY CHEST REASON FOR EXAM: Male, 75 years old. Dyspnea/Hypoxia TECHNIQUE: Single AP portable view of the chest. COMPARISON: 01/26/2021. FINDINGS: Cardiac silhouette unremarkable. Pulmonary vascularity unremarkable. Aorta calcified. No new focal patchy airspace opacities. Stable costophrenic angle blunting. COPD/emphysema with coarse lung markings. Upper abdomen unremarkable. Osseous structures intact. No pneumothorax. RAD/Chest 1 View (Portable) IMPRESSION: No new focal patchy airspace opacities COPD/emphysema with coarse lung markings Stable costophrenic angle blunting Electronically Signed: Lasha Resendiz DO at 13:05 EDT Tel , Service support ,
[2021-04-17 12:46] LABS: Anion Gap 5 (5-15); BUN 22 mg/dL (7-18); BUN/Creat Ratio 12.7 RATIO (10-20); Calcium,Total 9.3 mg/dL (8.5-10.1); Chloride 110 mmol/L (98-107); Creatinine, Serum 1.73 mg/dL (0.70-1.30); EST Glomerular Filtration Rate 41 mL/min (>60); Est Glom Filt Rate - Afr Amer 50 mL/min (>60); Glucose 194 mg/dL (74-106); Magnesium 2.2 mg/dL (1.6-2.6); Potassium 4.3 mmol/L (3.5-5.1); Sodium Level 141 mmol/L (136-145); Troponin-I HS 23 pg/mL (3.0-78.0)
[2021-04-17 13:21] LABS: BNP,B-Type NATRIURETIC PEPTIDE > 5000.0 pg/mL (0-100)
[2021-04-17] MEDS: Furosemide 40 MG/4 ML Vial IV ×2 (14:17→16:57)
--- NOTE | 2021-04-17 16:06 | HP.PCM.HOS_ITS ---
HPI - General General Date of Admission: 04/17/21 HPI Narrative RAJWINDER KEYS, is a 75 M who presents with SOB since . Progressively gotten worse. Not on oxygen at baseline. Presented to ED with pulse ox was 78% on room air when he arrived. Placed on oxygen and sats were improved. Diagnosed with CHF and received IV furosemide. Feels different from when previously had CHF exacerbations in the past. [facility] Medical History BPH (benign prostatic hyperplasia) Chronic HFrEF (heart failure with reduced ejection fraction) Chronic kidney disease (CKD) COPD (chronic obstructive pulmonary disease) Essential hypertension Hyperlipidemia Renal calculi Type 2 diabetes mellitus Home Medications albuterol sulfate [Ventolin HFA] 2 puff INHALATION Q4H PRN PRN 06/04/13 [History Last Taken 04/17/21] fluticasone fur. 200 mcg-umeclid 62.5 mcg-vilant 25 mcg inhalat.powder 1 inh INHALATION DAILY 03/20/21 [History Last Taken 04/17/21] glimepiride 1 mg tablet 1 mg PO DAILY 03/20/21 [History Last Taken 04/17/21] metformin 500 mg tablet 500 mg PO BID 03/20/21 [History Last Taken 04/17/21] pravastatin 40 mg tablet 40 mg PO QHS 03/20/21 [History Last Taken 04/16/21] tamsulosin 0.4 mg capsule 0.4 mg PO DAILY 03/20/21 [History Last Taken 04/16/21] carvedilol 6.25 mg tablet 6.25 mg PO BID #60 tab 04/04/21 [Rx Last Taken 04/17/21] budesonide-formoterol [Symbicort] 2 inh INHALATION DAILY 04/17/21 [History Last Taken 04/17/21] sacubitril-valsartan [Entresto] 1 tab PO BID 04/17/21 [History Last Taken 04/17/21] Allergy/AdvReac Type Severity Reaction Status Date / Time Penicillins Allergy Swelling Verified 04/17/21 12:01 Social History Smoking Status: Current every day smoker tobacco type: cigarettes ROS ROS Narrative No fever or chills. Denies any contacts with COVID-19. Denies lower extremity edema. All review of systems were negative except as mentioned above in the history of present illness and the other review of systems. Vital Signs Vital Signs Vital Signs: 04/17/21 11:55 04/17/21 11:59 04/17/21 12:17 Temperature 36.6 C 36.6 C Temperature Source Oral Oral Pulse Rate 108 H 108 H Respiratory Rate 25 H 24 H Respiratory Effort Short of Breath Labored Blood Pressure 144/79 H 144/79 H Blood Pressure Mean 100 100 Pulse Ox 78 78 Oxygen Delivery Method Room Air Room Air Nasal Cannula Oxygen Flow Rate (L/min) 04/17/21 12:18 04/17/21 12:59 04/17/21 14:38 Temperature 37.2 C 36.2 C L Temperature Source Temporal Temporal Pulse Rate 107 H 115 H Respiratory Rate 23 H 28 H Respiratory Effort Blood Pressure 125/73 H 161/86 H Blood Pressure Mean 90 111 Pulse Ox 100 98 96 Oxygen Delivery Method Nasal Cannula Nasal Cannula Nasal Cannula Oxygen Flow Rate (L/min) 5 04/17/21 15:23 Temperature 36.8 C Temperature Source Temporal Pulse Rate 114 H Respiratory Rate 18 Respiratory Effort Blood Pressure 155/89 H Blood Pressure Mean 111 Pulse Ox 94 Oxygen Delivery Method Nasal Cannula Oxygen Flow Rate (L/min) Weight Weight: 76.5 kg Body Mass Index (BMI) 23.5 Physical Exam Const alert Neck no lymphadenopathy Resp normal respiratory effort and no retractions Auscultation: wheezes expiratory wheezes and throughout Cardio regular rate, regular rhythm, S1 normal heart sound and S2 normal heart sound GI normal to inspection, nondistended, normoactive bowel sounds, soft to palpation, non-tender and non-distended Extremity normal to inspection and no clubbing, cyanosis or edema Skin no rashes or lesions noted and no wounds Neuro Sensorium / Orientation: awake and alert Psych affect normal Results Lab / Micro Data Result Diagrams: 04/17/21 12:05 04/17/21 12:05 Labs: Laboratory Results - last 24 hr 04/17/21 12:05: WBC 10.0, RBC 3.92 L, Hgb 12.4 L, Hct 40.6, MCV 103.6 H, MCH 31.6, MCHC 30.5 L, RDW Std Deviation 54.0 H, RDW Coeff of Naty 14.1, Plt Count 303, MPV 12.1 H, Immature Gran % (Auto) 0.500, Neut % (Auto) 82.5 H, Lymph % (Auto) 8.9 L, [place] % (Auto) 7.1, Eos % (Auto) 0.4, Baso % (Auto) 0.6, Absolute Neuts (auto) 8.3 H, Absolute Lymphs (auto) 0.89, Nucleated RBC % 0 04/17/21 12:05: Sodium 141, Potassium 4.3, Chloride 110 H, Carbon Dioxide 26.0, Anion Gap 5, BUN 22 H, Creatinine 1.73 H, Estim Creat Clear Calc 39.90, Est GFR (MDRD) Af Amer 50 L, Est GFR (MDRD) Non-Af 41 L, BUN/Creatinine Ratio 12.7, Glucose 194 H, Calcium 9.3, Magnesium 2.2, Troponin I High Sens 23 04/17/21 12:05: B-Natriuretic Peptide > 5000.0 H Micro: Microbiology 04/17/21 12:15 Interface Orders SARS-CoV-2 Antigen (Rapid) - Final Radiology Impression Chest X-Ray 04/17/21 12:45 IMPRESSION: No new focal patchy airspace opacities COPD/emphysema with coarse lung markings Stable costophrenic angle blunting Electronically Signed: Lasha Resendiz, at 13:05 EDT Tel , Service support , Assessment & Plan Assessment/Plan (1) Chronic HFrEF (heart failure with reduced ejection fraction): (2) Acute respiratory failure with hypoxia: PLAN: 1. Acute exacerbation heart failure with reduced ejection fraction EF 35% from 2D echocardiogram 02/06 Continue with IV furosemide 40 mg twice daily Continue with sacubitril/valsartan 2. Acute hypoxic respiratory failure Secondary to above Wean oxygen as able. Patient is not on oxygen at home Rapid Covid was negative, check PCR. Patient has been vaccinated for COVID-19. 3. Diabetes mellitus type 2 Hold Metformin and glyburide given his CHF exacerbation Sliding scale insulin 4. VTE prophylaxis with subcu heparin Charges/Coding Visit Charges Inpatient E&M: 06440 Init Hosp L3
--- NOTE | 2021-04-17 16:19 | PCS.PANDOC ---
PANDEMIC DOCUMENTATION INITIATED: Date: 04/02/2021 Time: 190
[2021-04-17 16:56] LABS: Bedside Glucose 217 mg/dL (70-110)
[2021-04-17] MEDS: Insulin Lispro 100 UNIT/ML INSULN.PEN SC (16:56)
[2021-04-17] MEDS: 0.9% Saline Lock 10 ML Syringe IV ×2 (16:57→22:47)
[2021-04-17] MEDS: Tamsulosin HCl 0.4 MG Capsule PO (17:18)
[2021-04-17 17:37] LABS: Troponin-I HS 28 pg/mL (3.0-78.0)
[2021-04-17] MEDS: Ipratropium/Albuterol Sulfate 3 ML AMPUL.NEB INHALATION (18:59)
[2021-04-17] MEDS: Budesonide Respules 0.5 MG/2 ML AMPUL.NEB. INHALATION (18:59)
[2021-04-17 19:26] LABS: Troponin-I HS 27 pg/mL (3.0-78.0)
[2021-04-17 20:38] LABS: Probe Check PASS; Specimen Processing Control PASS
[2021-04-17] MEDS: Pravastatin 40 MG Tablet PO (22:44)
[2021-04-17] MEDS: SACUBITRIL/VALSARTAN 49-51 MG TABLET 1 EACH PO (22:44)
[2021-04-17] MEDS: Carvedilol 6.25 MG Tablet PO (22:44)
[2021-04-17] MEDS: Heparin Injection (Vial) 5,000 UNIT/ML VIAL 5000 UNIT SC (22:55)
[2021-04-17 23:36] LABS: Bedside Glucose 251 mg/dL (70-110)
[2021-04-18] VITALS (12 sets, daily range): BP systolic 115–138; BP diastolic 76–92; PULSE 73–94; RESP 14–19; TEMP 36.3–36.7; O2SAT 92–98
[2021-04-18 05:26] LABS: AST(SGOT) 6 U/L (15-37); Alanine Aminotransfer ALT/SGPT 16 U/L (16-61); Albumin, Serum 3.2 g/dL (3.2-5.0); Alkaline Phosphatase 83 U/L (45-117); Anion Gap 6 (5-15); BUN 31 mg/dL (7-18); BUN/Creat Ratio 17.4 RATIO (10-20); Calcium,Total 8.5 mg/dL (8.5-10.1); Chloride 106 mmol/L (98-107); Creatinine, Serum 1.78 mg/dL (0.70-1.30); EST Glomerular Filtration Rate 40 mL/min (>60); Est Glom Filt Rate - Afr Amer 48 mL/min (>60); Estimated Creatinine Clearance 38.78 ml/min; Globulin 3.2 g/dL (2.2-4.2); Glucose 188 mg/dL (74-106); Potassium 4.2 mmol/L (3.5-5.1); Protein, Total 6.4 g/dL (6.4-8.2); Sodium Level 139 mmol/L (136-145)
[2021-04-18] MEDS: Insulin Lispro 100 UNIT/ML INSULN.PEN SC ×2 (06:33→17:05)
[2021-04-18] MEDS: Budesonide Respules 0.5 MG/2 ML AMPUL.NEB. INHALATION ×2 (06:48→19:46)
[2021-04-18] MEDS: Ipratropium/Albuterol Sulfate 3 ML AMPUL.NEB INHALATION ×2 (06:48→19:46)
[2021-04-18 06:56] LABS: Bedside Glucose 169 mg/dL (70-110)
[2021-04-18] MEDS: Carvedilol 6.25 MG Tablet PO ×2 (08:17→21:07)
[2021-04-18] MEDS: Heparin Injection (Vial) 5,000 UNIT/ML VIAL 5000 UNIT SC ×2 (08:17→21:08)
[2021-04-18] MEDS: Furosemide 40 MG/4 ML Vial IV ×2 (08:18→17:05)
[2021-04-18] MEDS: SACUBITRIL/VALSARTAN 49-51 MG TABLET 1 EACH PO ×2 (08:18→21:07)
--- NOTE | 2021-04-18 11:40 | CASEMGMT ---
RICARDA HENSLEY assessment: Face to Face with patient for initial transition planning/care coordination assessment. RICARDA HENSLEY introduced self and role at [facility], pt voices understanding and consents to assessment. Pt is sitting up in bed in no distress on room air. Pt is A/Ox4 and answers all questions appropriately. Pt's sister is at bedside during assessment. Care providers, pharmacy, and demographics verified. Presentation: Cough w/ white sputum since friday, more SOB than normal Admitting dx: CHF exac PCP: Du Specialists: Juan, cardio-Pt scheduled for ST 04/30 Preferred Pharmacy: [facility] [place] mail order [facility] Living Will/HPOA: Pt states has LW/HPOA and is aware that they are not on file at [facility]. Pt is unsure of his HPOA and his sister states she will try to find papers and bring in. LNOK: Senait Garzon, sister; Elizabeth Manuelluana, friend Living Arrangements: Pt states lives alone in 2 story home and states does not have to go to 2nd story. Pt states no concerns at home. Pt states is independent with ADL's. Transportation: Pt states drives self and states no transportation concerns. DME/HHC: Pt states no current DME or need for any at this time. Pt states would like [employer] preferred DME, [employer], is qualifies for home oxygen at discharge. Pt states no hx of HHC or SNF. Pt's sister inquires about HHC and palliative for pt. Pt provided with a list of HHC providers including quality and resource use data and consistent with the patient?s preferred geographic region, medical needs, and insurance network. Palliative screening tool completed and pt qualifies. Palliative referral faxed and call placed. Pt states no concerns with going home at time of discharge. Pt states is retired. Pt states smokes 1-2 cigarettes daily but does not drink ETOH. Pt states no further concerns/needs. CM to follow for HHC, home oxygen testing, and any further discharge planning/needs. Advised pt to ask for CM if any further questions/concerns/needs arise, voices understanding. Pt Goal: Home Plan: Home, pending PT/OT evals, home oxygen testing. [place] RICARDA HENSLEY
[2021-04-18 12:56] LABS: Bedside Glucose 148 mg/dL (70-110)
--- NOTE | 2021-04-18 16:02 | PCM.PN.HOSP ---
Subjective Subjective Breathing better. Taken off oxygen and pulse ox dropped down to 79% on room air at rest. Objective Data Objective Data Vital Signs: Vital Signs Temp Pulse Resp BP Pulse Ox 36.7 C 91 16 117/85 H 93 04/18/21 13:57 04/18/21 15:02 04/18/21 13:57 04/18/21 13:57 04/18/21 13:57 Oxygen Flow Rate (L/min) 2.5 Oxygen Delivery Method Nasal Cannula Weight: 72.6 kg Body Mass Index (BMI) 22.5 Intake & Output: Intake and Output for Last 24 Hours 04/16/21 04/17/21 04/18/21 23:59 23:59 23:59 Intake Total 440 / 440 520 / 520 Output Total 400 / 400 1999 / 1999 Balance 40 / 40 -1480 / -1480 Lab / Micro Data Result Diagrams: 04/17/21 12:05 04/18/21 04:44 Labs: Laboratory Results - last 24 hr 04/17/21 16:32: POC Glucose 217 H 04/17/21 17:00: Troponin I High Sens 28 04/17/21 18:40: Troponin I High Sens 27 04/17/21 19:11: COVID-19 (LOU) Negative 04/17/21 22:43: POC Glucose 251 H 04/18/21 04:44: Sodium 139, Potassium 4.2, Chloride 106, Carbon Dioxide 27.0, Anion Gap 6, BUN 31 H, Creatinine 1.78 H, Estim Creat Clear Calc 38.78, Est GFR (MDRD) Af Amer 48 L, Est GFR (MDRD) Non-Af 40 L, BUN/Creatinine Ratio 17.4, Glucose 188 H, Calcium 8.5, Total Bilirubin 0.50, AST 6 L, ALT 16, Alkaline Phosphatase 83, Total Protein 6.4, Albumin 3.2, Globulin 3.2, Albumin/Globulin Ratio 1.0 04/18/21 06:32: POC Glucose 169 H 04/18/21 12:19: POC Glucose 148 H Micro: Microbiology 04/17/21 12:15 Interface Orders SARS-CoV-2 Antigen (Rapid) - Final Physical Exam Resp normal respiratory effort and no retractions Auscultation: wheezes Cardio regular rate, regular rhythm, S1 normal heart sound and S2 normal heart sound GI normal to inspection, nondistended, normoactive bowel sounds, soft to palpation and non-distended Extremity normal to inspection and no clubbing, cyanosis or edema Assessment & Plan Assessment/Plan (1) Chronic HFrEF (heart failure with reduced ejection fraction): (2) Acute respiratory failure with hypoxia: PLAN: 1. Acute exacerbation heart failure with reduced ejection fraction EF 35% from 2D echocardiogram 02/06 Continue with IV furosemide 40 mg twice daily Continue with sacubitril/valsartan 2. Acute hypoxic respiratory failure Secondary to above Wean oxygen as able. Patient is not on oxygen at home Rapid and PCR Covid or negative. Patient has been vaccinated for COVID-19. 3. Diabetes mellitus type 2 Hold Metformin and glyburide given his CHF exacerbation Sliding scale insulin 4. CKD 3B Stable Monitor closely while on furosemide 5.VTE prophylaxis with subcu heparin Discussed with patient's at bedside Charges/Coding Visit Charges Inpatient E&M: 52858 Subs Hosp L2
[2021-04-18] MEDS: Tamsulosin HCl 0.4 MG Capsule PO (17:05)
[2021-04-18 18:41] LABS: Bedside Glucose 185 mg/dL (70-110)
[2021-04-18] MEDS: Pravastatin 40 MG Tablet PO (21:08)
[2021-04-18 21:16] LABS: Bedside Glucose 181 mg/dL (70-110)
[2021-04-19] VITALS (14 sets, daily range): BP systolic 95–128; BP diastolic 49–75; PULSE 50–102; RESP 16–20; TEMP 36.2–37; O2SAT 83–96
[2021-04-19] MEDS: Insulin Lispro 100 UNIT/ML INSULN.PEN SC ×4 (06:40→23:28)
[2021-04-19 06:51] LABS: Bedside Glucose 234 mg/dL (70-110)
[2021-04-19] MEDS: Ipratropium/Albuterol Sulfate 3 ML AMPUL.NEB INHALATION ×3 (07:21→17:56)
[2021-04-19] MEDS: Budesonide Respules 0.5 MG/2 ML AMPUL.NEB. INHALATION ×2 (07:21→17:56)
[2021-04-19 07:27] LABS: Anion Gap 4 (5-15); BUN 41 mg/dL (7-18); BUN/Creat Ratio 20.3 RATIO (10-20); Calcium,Total 8.7 mg/dL (8.5-10.1); Chloride 102 mmol/L (98-107); Creatinine, Serum 2.02 mg/dL (0.70-1.30); EST Glomerular Filtration Rate 34 mL/min (>60); Est Glom Filt Rate - Afr Amer 42 mL/min (>60); Estimated Creatinine Clearance 32.95 ml/min; Glucose 240 mg/dL (74-106); Potassium 3.8 mmol/L (3.5-5.1); Sodium Level 137 mmol/L (136-145)
[2021-04-19] MEDS: Heparin Injection (Vial) 5,000 UNIT/ML VIAL 5000 UNIT SC (09:23)
[2021-04-19] MEDS: Furosemide 40 MG/4 ML Vial IV (09:23)
[2021-04-19] MEDS: 0.9% Saline Lock 10 ML Syringe IV (09:24)
--- NOTE | 2021-04-19 10:43 | PCM.CONS.P ---
Assessment & Plan Assessment/Plan (1) Dyspnea: QUALIFIERS: Dyspnea type: dyspnea on exertion Qualified Code(s): R06.00 - Dyspnea, unspecified (2) Acute exacerbation of CHF (congestive heart failure): (3) Chronic HFrEF (heart failure with reduced ejection fraction): (4) Acute respiratory failure with hypoxia: (5) Essential hypertension: (6) Hyperlipidemia: QUALIFIERS: Hyperlipidemia type: unspecified Qualified Code(s): E78.5 - Hyperlipidemia, unspecified (7) Chronic kidney disease (CKD): QUALIFIERS: Chronic kidney disease stage: stage 3 (moderate) Chronic kidney disease stage 3 subtype: stage 3b (GFR 30-44) Qualified Code(s): N18.32 - Chronic kidney disease, stage 3b PLAN: 75-year-old male with acute on chronic CHF exacerbation, complaints of shortness of breath. Seen by palliative care for symptom management of shortness of breath and symptoms related to his comorbidities. 1. Dyspnea: Improved with diuresis. He is still requiring 4 L of oxygen, saturating at 90%. Possibly will require home O2. He is scheduled for a stress test April 30 and concerned how he is going to get there. No indication for opioids at this time for management of his dyspnea. Palliative will provide supportive care and close monitoring of his symptoms, goals would be improve quality of life, reduce symptoms, and avoid hospitalizations if possible. 2. Acute hypoxemic respiratory failure: Related to CHF and probable COPD. He does still smoke. Encouraged/counseled on smoking cessation. Again, will likely require home O2 at discharge. 3. Hypertension/HLD/CKD stage III: Complicates overall care, management, recovery, and prognosis. Defer management to specialists and PCP. Thank you for the opportunity to participate in this patient's care, please do not hesitate to contact [facility] with any further questions or concerns. Palliative direct line is [phone]. We will have a liaison come out and discuss palliative services further. Greater than 50% of F2F visit dedicated to education and counseling of palliative care services, medications, comorbid conditions and potential assistance with management, and plan of care moving forward. Start time: 1035 End time: 1115 HPI Consult Data Date of Consult: 04/19/21 HPI Narrative HPI Narrative: RAJWINDER KEYS, is a 75 M who presents to [facility] 04[facility]17[facility]21 with complaints of increased shortness of breath. Had some mild sputum production. Neighbor came over and checked on him and pulse ox was 78% on room air. He was transported by EMS to the ED for further evaluation. Found to be in CHF exacerbation, admitted for further evaluation management. Patient is being diuresed and receiving scheduled breathing treatments. He has as needed albuterol and Tylenol for pain. Patient lives alone in two-story home, reports he is independent with all ADLs. He does have a healthcare power of ip technology transactions attorney but is on sure who that is. Next of kin is Senait Garzon, his sister and friend Elizabeth Clifford. He does not have home oxygen. He is retired. He still smokes 1 to 2 cigarettes/day. He may require home O2 when discharged. Patient denies any current shortness of breath, he does have dyspnea on exertion. Continues on 4 l of oxygen. His sister is in the room, has lots of questions about home health and upcoming testing as an outpatient. I did explain palliative services, she repetitively stated its hospice. I did explain the difference between hospice and palliative, patient and sister verbalized understanding. Discussed symptom management of his shortness of breath due to CHF and respiratory failure. Patient states he is following with Dr. Martinez. Patient is on baseline inhalers at home. Denies any nausea, vomiting, diarrhea. Occasional constipation. No dizziness or syncope. He does have a cough with minimal sputum production. No numbness or tingling. Generalized weakness but mild. [facility] Medical History BPH (benign prostatic hyperplasia) Chronic HFrEF (heart failure with reduced ejection fraction) Chronic kidney disease (CKD) COPD (chronic obstructive pulmonary disease) Essential hypertension Hyperlipidemia Renal calculi Type 2 diabetes mellitus Home Medications albuterol sulfate [Ventolin HFA] 2 puff INHALATION Q4H PRN PRN 06/04/13 [History Last Taken 04/17/21] fluticasone fur. 200 mcg-umeclid 62.5 mcg-vilant 25 mcg inhalat.powder 1 inh INHALATION DAILY 03/20/21 [History Last Taken 04/17/21] glimepiride 1 mg tablet 1 mg PO DAILY 03/20/21 [History Last Taken 04/17/21] metformin 500 mg tablet 500 mg PO BID 03/20/21 [History Last Taken 04/17/21] pravastatin 40 mg tablet 40 mg PO QHS 03/20/21 [History Last Taken 04/16/21] tamsulosin 0.4 mg capsule 0.4 mg PO DAILY 03/20/21 [History Last Taken 04/16/21] carvedilol 6.25 mg tablet 6.25 mg PO BID #60 tab 04/04/21 [Rx Last Taken 04/17/21] budesonide-formoterol [Symbicort] 2 inh INHALATION DAILY 04/17/21 [History Last Taken 04/17/21] sacubitril-valsartan [Entresto] 1 tab PO BID 04/17/21 [History Last Taken 04/17/21] Allergy/AdvReac Type Severity Reaction Status Date / Time Penicillins Allergy Swelling Verified 04/17/21 12:01 Social History Smoking Status: Current every day smoker tobacco type: cigarettes ROS ROS Narrative Review of systems otherwise negative from a constitutional, HEENT, respiratory, cardiovascular, GI, genitourinary, musculoskeletal, skin, neurologic, psychiatric and hematologic system unless stated above. Physical Exam Const alert, oriented x3 and no apparent distress General Appearance: cooperative and comfortable HEENT normocephalic and head/scalp atraumatic Neck supple General: trachea midline Resp normal respiratory effort Effort and Inspection: able to speak in complete sentences and symmetric chest movement Auscultation: rales bilateral (posterior bases), wheezes expiratory wheezes and throughout and diminished lung sounds bilateral Cardio regular rate, regular rhythm, S1 normal heart sound and S2 normal heart sound Cardio Narrative: distant heart sounds GI normal to inspection, nondistended, normoactive bowel sounds Extremity no clubbing, cyanosis or edema Skin no rashes or lesions noted Skin Narrative: tattoos Neuro CN's II-XII intact bilaterally, moves all extremities and no focal motor deficits Psych mental status grossly normal Appearance: well kempt Attitude: engaged Activity / Motor Behavior: appropriate eye contact Speech: normal speech
--- NOTE | 2021-04-19 11:36 | CASEMGMT ---
Addendum entered by Graciela North 04/20/21 08:23: Per Katrin at [facility], they can accept pt. Ladan CHOWDARY CM Original Note: This RN CM to room to discuss d/c plan with pt/sister. Pt did agree to palliative and they will follow pt as OP. Per pt/sister, they would like [facility] and order placed for SN, PT/OT. Call to Katrin at [facility] to update on referral, voices understanding. This RN CM to update Katrin with a discharge date, once known. Pt/sister also provided [facility] transportation info per request. CM to follow for HHC acceptance and home oxygen need. Pt's sister would like updated on d/c plan at discharge. Pt declines need for [facility] at this time, CM to follow. Ladan CHOWDARY CM
[2021-04-19 11:41] LABS: Bedside Glucose 245 mg/dL (70-110)
[2021-04-19 11:42] LABS: D-Dimer Quantitative (DVT/PE) 1.28 FEU/ug/m (0.27-0.49)
--- NOTE | 2021-04-19 14:31 | NM_ITS ---
History: dyspnea EXAMINATION: NM Pulmonary Ventilation Perfusion Imaging TECHNIQUE: Routine VQ scan protocol was performed using 47 mCi {Tc-99m DTPA aerosolFXe-133 gas} and 4.8 mCi intravenous Technetium 99m MAA. COMPARISON: Chest radiograph April 19, 2021 FINDINGS: Prominent central accumulation of aerosolized DTPA on the ventilation study associated with prominent bilateral ventilatory defects. There are matching perfusion defects corresponding to the ventilation abnormalities. No mismatch defects. NM/Lung Scan Vent/Perf IMPRESSION: Matching ventilation and perfusion defects consistent with low probability of pulmonary embolism. at 0838 Reported and signed by: Jamison Barajas MD Electronically Signed: Jamison Barajas MD at 8:36 EDT Tel , Service support ,
--- NOTE | 2021-04-19 14:36 | PN.HOSP_ITS ---
Subjective Subjective Brething well, but desats with decrease oxygen. Objective Data Objective Data Vital Signs: Vital Signs Temp Pulse Resp BP Pulse Ox 36.4 C L 50 L 17 107/49 L 94 04/19/21 11:15 04/19/21 13:07 04/19/21 13:07 04/19/21 11:15 04/19/21 11:15 Oxygen Flow Rate (L/min) 4 Oxygen Delivery Method Nasal Cannula Weight: 72.6 kg Body Mass Index (BMI) 22.5 Intake & Output: Intake and Output for Last 24 Hours 04/17/21 04/18/21 04/19/21 23:59 23:59 23:59 Intake Total 440 / 440 1000 / 1000 240 / 240 Output Total 400 / 400 5000 / 5000 1100 / 1100 Balance 40 / 40 -4000 / -4000 -860 / -860 Lab / Micro Data Result Diagrams: 04/17/21 12:05 04/19/21 05:55 Labs: Laboratory Results - last 24 hr 04/18/21 16:52: POC Glucose 185 H 04/18/21 21:06: POC Glucose 181 H 04/19/21 05:55: Sodium 137, Potassium 3.8, Chloride 102, Carbon Dioxide 31.0, Anion Gap 4 L, BUN 41 H, Creatinine 2.02 H, Estim Creat Clear Calc 32.95, Est GFR (MDRD) Af Amer 42 L, Est GFR (MDRD) Non-Af 34 L, BUN/Creatinine Ratio 20.3 H , Glucose 240 H, Calcium 8.7 04/19/21 06:39: POC Glucose 234 H 04/19/21 11:17: POC Glucose 245 H 04/19/21 11:24: D-Dimer Quant (PE/DVT) 1.28 H* Micro: Microbiology 04/17/21 12:15 Interface Orders SARS-CoV-2 Antigen (Rapid) - Final Physical Exam Const alert Resp normal respiratory effort, no retractions, no use of accessory muscles and clear to auscultation bilaterally Cardio regular rate, regular rhythm, S1 normal heart sound and S2 normal heart sound GI normal to inspection, nondistended, normoactive bowel sounds, soft to palpation, non-tender and non-distended Extremity normal to inspection Assessment & Plan Assessment/Plan (1) Chronic HFrEF (heart failure with reduced ejection fraction): (2) Acute respiratory failure with hypoxia: PLAN: 1. Acute exacerbation heart failure with reduced ejection fraction EF 35% from 2D echocardiogram 02/06 Change furosemide to 40 daily PO Continue with sacubitril/valsartan 2. Acute hypoxic respiratory failure Secondary to above Wean oxygen as able. Patient is not on oxygen at home Rapid and PCR Covid or negative. Patient has been vaccinated for COVID-19. Elevated d-dimer. Check VQ scan 3. Diabetes mellitus type 2 Hold Metformin and glyburide given his CHF exacerbation Sliding scale insulin 4. CKD 3B Stable Monitor closely while on furosemide 5.VTE prophylaxis with subcu heparin Charges/Coding Visit Charges Inpatient E&M: 51503 Subs Hosp L2
--- NOTE | 2021-04-19 16:08 | RAD_ITS ---
STUDY: X-RAY CHEST REASON FOR EXAM: Male, 75 years old. Post VQ scan. TECHNIQUE: Single AP portable view of the chest. COMPARISON: 04/17/2021. FINDINGS: The lungs are mildly emphysematous. There is no new infiltrate or mass. Small bilateral pleural effusions and atelectasis, left greater than right. Normal size heart. There is no mediastinal or hilar change. No osseous changes. There is no demonstrated abnormality of the visualized soft tissue structures of the upper abdomen. RAD/Chest 1 View IMPRESSION: Interval development of small pleural effusions and atelectasis. Electronically Signed: Tima Stiles DO at 16:23 EDT Tel [phone], Service support ,
[2021-04-19] MEDS: Tamsulosin HCl 0.4 MG Capsule PO (16:45)
[2021-04-19 17:45] LABS: Bedside Glucose 204 mg/dL (70-110)
[2021-04-19] MEDS: APIXABAN 5 MG TABLET 10 MG PO (21:21)
[2021-04-19] MEDS: Carvedilol 6.25 MG Tablet PO (21:21)
[2021-04-19] MEDS: Pravastatin 40 MG Tablet PO (21:22)
[2021-04-19] MEDS: SACUBITRIL/VALSARTAN 49-51 MG TABLET 1 EACH PO (21:22)
[2021-04-19] MEDS: Acetaminophen 325 MG Tablet 650 MG PO (21:30)
[2021-04-19 21:55] LABS: Bedside Glucose 272 mg/dL (70-110)
[2021-04-19] MEDS: Menthol/Lanolin/Calamine/Znox 113 GM Tube 1 APPLIC TOPICAL (23:27)
[2021-04-19] MEDS: DiphenhydrAMINE 25 MG Capsule 50 MG PO (23:27)
[2021-04-20] VITALS (10 sets, daily range): BP systolic 110–124; BP diastolic 60–76; PULSE 52–100; RESP 16–18; TEMP 36.6–37.1; O2SAT 87–95
[2021-04-20 06:01] LABS: Anion Gap 7 (5-15); BUN 44 mg/dL (7-18); BUN/Creat Ratio 21.7 RATIO (10-20); Calcium,Total 8.4 mg/dL (8.5-10.1); Chloride 103 mmol/L (98-107); Creatinine, Serum 2.03 mg/dL (0.70-1.30); EST Glomerular Filtration Rate 34 mL/min (>60); Est Glom Filt Rate - Afr Amer 41 mL/min (>60); Estimated Creatinine Clearance 32.29 ml/min; Glucose 167 mg/dL (74-106); Sodium Level 140 mmol/L (136-145)
[2021-04-20] MEDS: Insulin Lispro 100 UNIT/ML INSULN.PEN SC ×2 (06:22→11:12)
[2021-04-20 06:26] LABS: Bedside Glucose 156 mg/dL (70-110)
[2021-04-20] MEDS: Budesonide Respules 0.5 MG/2 ML AMPUL.NEB. INHALATION (07:16)
[2021-04-20] MEDS: Ipratropium/Albuterol Sulfate 3 ML AMPUL.NEB INHALATION ×2 (07:16→13:20)
[2021-04-20] MEDS: Menthol/Lanolin/Calamine/Znox 113 GM Tube 1 APPLIC TOPICAL (09:59)
[2021-04-20] MEDS: Furosemide 40 MG Tablet PO (09:59)
[2021-04-20] MEDS: SACUBITRIL/VALSARTAN 49-51 MG TABLET 1 EACH PO (09:59)
[2021-04-20] MEDS: Carvedilol 6.25 MG Tablet PO (09:59)
--- NOTE | 2021-04-20 10:12 | CASEMGMT ---
Call to Katrin at [facility] to notify pt will likely discharge today and per Katrin, they will do start of care 04/22/21. Discharge plan updated in [facility] and this RN CM is awaiting home oxygen testing. CM to follow. SStjudi CHOWDARY CM
--- NOTE | 2021-04-20 10:14 | PCM.DC ---
Discharge Instructions Diet Discharge Diet: 6 Cup Fluid Restriction and 2000 mg Sodium Diet Activity Discharge Activity: Return to Normal Activity Dressing / Incision Call your doctor if you observe: Shortness of breath Follow Up Care Test Results: Test results from this visit will be discussed in further detail at your follow-up appointment, if applicable. Discharge Plan Admission Admit Date/Time: 04/17/21 16:01 Primary Reason for Your Visit: heart failure Attending Provider: Lasha Yeboah Primary Care Provider: Silvano Sandy Chi Discharge Orders/Prescriptions Prescriptions: New furosemide 40 mg Tablet 40 mg PO DAILY Qty: 30 RF: 0 Continued pravastatin 40 mg tablet 40 mg PO QHS RF: 0 glimepiride 1 mg tablet 1 mg PO DAILY RF: 0 tamsulosin 0.4 mg capsule 0.4 mg PO DAILY RF: 0 Trelegy Ellipta 200-62.5-25 mcg blister with device 1 inh inhalation DAILY RF: 0 carvedilol [Coreg] 6.25 mg tablet 6.25 mg PO BID Qty: 60 RF: 4 albuterol sulfate [Ventolin HFA] 1 INHALER inhaler 2 puff inhalation Q4H PRN PRN (Reason: Sob &/Or Wheezing) RF: 0 budesonide-formoterol [Symbicort] 160-4.5 mcg/actuation HFA aerosol inhaler 2 inh INHALATION DAILY RF: 0 Entresto 49-51 mg tablet 1 tab PO BID RF: 0 Discontinued metformin 500 mg tablet 500 mg PO BID RF: 0 Referrals / Follow Up: Jean Marie Lehman MD [STAFF PHYSICIAN] - Within 1 Month (Chronic respiratory failure) Karson Martinez MD [STAFF PHYSICIAN] - Within 1 Month Silvano Sandy Chi, MD [Primary Care Provider] - Within 2 Weeks Disposition Disposition (needs filled in before D/C Order can be placed): Home Health Service
--- NOTE | 2021-04-20 10:20 | DS.PCM_ITS ---
Providers Date of Admission: 04/17/21 Primary Care Physician: Dr. Silvano Sandy MD Reason For Visit: CHF EXACERBATION Diagnosis Discharge Diagnosis (1) Chronic HFrEF (heart failure with reduced ejection fraction): Status: Chronic Code(s): I50.22 - Chronic systolic (congestive) heart failure (2) Acute respiratory failure with hypoxia: Status: Acute Code(s): J96.01 - Acute respiratory failure with hypoxia Medications at Discharge Home Medications albuterol sulfate [Ventolin HFA] 2 puff INHALATION Q4H PRN PRN 06/04/13 fluticasone fur. 200 mcg-umeclid 62.5 mcg-vilant 25 mcg inhalat.powder 1 inh INHALATION DAILY 03/20/21 glimepiride 1 mg tablet 1 mg PO DAILY 03/20/21 pravastatin 40 mg tablet 40 mg PO QHS 03/20/21 tamsulosin 0.4 mg capsule 0.4 mg PO DAILY 03/20/21 carvedilol 6.25 mg tablet 6.25 mg PO BID #60 tab 04/04/21 Entresto 1 tab PO BID 04/17/21 budesonide-formoterol [Symbicort] 2 inh INHALATION DAILY 04/17/21 furosemide 40 mg PO DAILY #30 tab 04/20/21 Hospital Course Operations None Procedures None Summary of Care Provided Minutes Spent on Discharge: 32 Hospital Course: 75-year-old male presents with several day history of shortness of breath. Presented with pulse ox is 90% on room air in the emergency room. impr Patient was on IV furosemide and then changed over to oraloved with oxygenation. BNP was greater than 5000 patient was treated for CHF and steadily improved. Did I am concerned the patient does have chronic respiratory failure this b elucidated. Patient is oneen fully Patient still is requiring oxygen 3 L at rest and then 6 L at baseline.. bronchodilators through his PCP. Patient has never seen a license issuer. I recommend patient follow-up with a license issuer for further evaluation in regards to underlying lung disease. Patient does have But have also recommend patient follow-up with pulmonology as well as nephrology for his chronic kidney disease stage IIIb. heart failure with reduced ejection fraction with an EF of 35%. Patient was to have a stress test as outpatient which she will continue to do so and follow-up with cardiology as already scheduled. Patient be discharged with oxygen 3 L at rest and 6 L with activity. Patient will be discharged with furosemide 40 mg daily. Patient not a candidate for JUDIT inhibitor nor angiotensin receptor blockers given his chronic kidney disease. Physical Exam Const alert Resp normal respiratory effort, no retractions and no use of accessory muscles Resp Narrative: Few scattered wheezes Cardio regular rate, regular rhythm, S1 normal heart sound and S2 normal heart sound Weight / BMI Weight Weight: 71.5 kg Body Mass Index (BMI) 22.5 ABG / Lab / Microbiology Data Result Diagrams: 04/17/21 12:05 04/20/21 04:47 Laboratory: Laboratory Results - last 24 hr 04/19/21 11:17: POC Glucose 245 H 04/19/21 11:24: D-Dimer Quant (PE/DVT) 1.28 H* 04/19/21 16:37: POC Glucose 204 H 04/19/21 21:27: POC Glucose 272 H 04/20/21 04:47: Sodium 140, Potassium 4.0, Chloride 103, Carbon Dioxide 30.0, Anion Gap 7, BUN 44 H, Creatinine 2.03 H, Estim Creat Clear Calc 32.29, Est GFR (MDRD) Af Amer 41 L, Est GFR (MDRD) Non-Af 34 L, BUN/Creatinine Ratio 21.7 H, Glucose 167 H, Calcium 8.4 L 04/20/21 06:20: POC Glucose 156 H Microbiology: Microbiology 04/17/21 12:15 Interface Orders SARS-CoV-2 Antigen (Rapid) - Final Radiography Diagnostic Testing: Radiology Impression Lung Scan-VQ NM 04/19/21 14:31 IMPRESSION: Matching ventilation and perfusion defects consistent with low probability of pulmonary embolism. at 0838 Reported and signed by: Jamison Barajas MD Electronically Signed: Jamison Barajas MD at 8:36 EDT Tel , Service support , Chest X-Ray 04/19/21 16:08 IMPRESSION: Interval development of small pleural effusions and atelectasis. Electronically Signed: Tima Stiles DO at 16:23 EDT Tel [phone], Service support , D/C Instructions Discharge Diet: 6 Cup Fluid Restriction and 2000 mg Sodium Diet Call your doctor if you observe: Shortness of breath Meaningful Use Info Meaningful Use Diagnoses (Choose all that apply): CHF CHF JUDIT/ARB ordered at discharge?: No Reason JUDIT/ARB not ordered?: Worsening renal disease Documented LVEF (%): 35 Discharge Plan Admission Admit Date/Time: 04/17/21 16:01 Primary Reason for Your Visit: heart failure Attending Provider: Lasha Yeboah Primary Care Provider: Silvano Sandy Chi Instructions Additional Instructions / Restrictions: Patient Problems: Altered Health Status related to Hospitalization Patient Goals: *Optimal Level of Health *Keep Appointments *Medication Compliance *Remain Safe Discharge Orders/Prescriptions Prescriptions: New furosemide 40 mg Tablet 40 mg PO DAILY Qty: 30 RF: 0 Continued pravastatin 40 mg tablet 40 mg PO QHS RF: 0 glimepiride 1 mg tablet 1 mg PO DAILY RF: 0 tamsulosin 0.4 mg capsule 0.4 mg PO DAILY RF: 0 Trelegy Ellipta 200-62.5-25 mcg blister with device 1 inh inhalation DAILY RF: 0 carvedilol [Coreg] 6.25 mg tablet 6.25 mg PO BID Qty: 60 RF: 4 albuterol sulfate [Ventolin HFA] 1 INHALER inhaler 2 puff inhalation Q4H PRN PRN (Reason: Sob &/Or Wheezing) RF: 0 budesonide-formoterol [Symbicort] 160-4.5 mcg/actuation HFA aerosol inhaler 2 inh INHALATION DAILY RF: 0 Entresto 49-51 mg tablet 1 tab PO BID RF: 0 Discontinued metformin 500 mg tablet 500 mg PO BID RF: 0 Referrals / Follow Up: Jean Marie Lehman MD [STAFF PHYSICIAN] - Within 1 Month (Chronic respiratory failure) Christina Gomez DO [STAFF PHYSICIAN] - Within 1 Month (Chronic kidney disease) Karson Martinez MD [STAFF PHYSICIAN] - Within 1 Month Silvano Sandy Chi, MD [Primary Care Provider] - Within 2 Weeks Disposition Disposition (needs filled in before D/C Order can be placed): Home Health Service Charges/Coding Visit Charges Inpatient E&M: 99450 Disch Hosp
--- NOTE | 2021-04-20 11:02 | CASEMGMT ---
Addendum entered by Graciela North 04/20/21 15:49: Call to [facility] again to check on tank and per rep, wrecker driver is on his way with e-tank at this time. Boo, PCU charge, aware, voices understanding. Ladan CHOWDARY CM Original Note: Per Malathi CHOWDARY, pt qualifies for 3L at rest and 6L w/ ambulation. Pt had stated preference for [employer] preferred provider [facility] and script for home oxygen faxed to [facility] at this time. Pt/sister updated that [facility]21 and that palliative will follow. [facility] is aware that pt started with palliative. Pt declines [facility] at this time and is aware can f/u with PCP if he decided he needs once home. Pt/sister voice no further questions/concerns/needs. [facility] to be updated on referral and pt discharge today. Pt awaiting e-tank to go home. Ladan CHOWDARY CM
[2021-04-20 11:45] LABS: Bedside Glucose 266 mg/dL (70-110)
--- NOTE | 2021-04-24 15:05 | CASEMGMT ---
RICARDA HENSLEY Discharge Follow-up Phone Call: BI: Mumtaz Strata: 3 Call Date: 04/24/21 Discharge Date: 04/20/21 Time of Call: 1500 Duration: 5 min Admitting Diagnosis: CHF exacerbation RICARDA HENSLEY completed follow-up phone call after recent hospitalization. Patient states he is doing alright. Patient states that his oxygen got delivered without any difficulty and is wearing it but it causes him to sneeze. Patient states [facility] has been in contact with patient and will be seeing him tomorrow. Patient was able to fill prescription without any issues. Patient is aware of follow-up appts. Patient had no further questions or concerns.
== END 2021-04-20 18:14 | disposition home health service (06) | DRG 291 ==
LOC: ED 12:53 → PCU 15:02
PROVIDERS: Emergency Provider Emergency Medicine; PCP Family Medicine Geriatric Medicine
DX: I13.0 Hypertensive heart and chronic kidney disease with heart failure and stage 1 through stage 4 chronic kidney disease, or unspecified chronic kidney disease (principal); I50.23 Acute on chronic systolic (congestive) heart failure; J96.01 Acute respiratory failure with hypoxia; N18.32 Chronic kidney disease, stage 3b; E11.22 Type 2 diabetes mellitus with diabetic chronic kidney disease; F17.210 Nicotine dependence, cigarettes, uncomplicated; Z79.84 Long term (current) use of oral hypoglycemic drugs; Z79.899 Other long term (current) drug therapy
CPT/HCPCS: 36415; 71045; 78582; 78598; 80048; 80053; 82962; 83735; 83880; 84484; 85025; 85379; 87426; 87635; 93005; 94640; 97162; 97166; 99251; 99285; 99406; A9540; A9567; U0005; A4216; G0463; J1940; U0003

== ENCOUNTER → 2021-04-30 06:17 | Outpatient (CLI) | payer MEDICARE, SELFPAY ==
--- NOTE | 2021-04-30 09:39 | STRESSREP ---
Stress Test Report Pharmacologic myocardial perfusion stress test. 75-year-old male with a history of syncope. Stress protocol: Resting EKG demonstrates normal sinus rhythm with a rate of 85 bpm. Occasional premature ventricular complexes is noted. 0.4 mg of regadenoson was infused per usual protocol followed by rapid intravenous saline flush injection continuous EKG monitoring was performed. The maximum heart rate attained was other than 12 bpm which was 76% of maximum predicted heart rate the maximum workload was 1 metabolic equivalent. At rest there were no ST or T wave changes noted to suggest abnormal flow reserve and at peak infusion nonspecific ST changes were noted with did not meet the criteria for ischemia. No clinical angina was noted. Myocardial perfusion protocol. 11.5 mCi of technetium 99m sestamibi was injected at rest. 0.4 mg of regadenoson was infused per usual protocol. At peak infusion 33.7 mCi of technetium 99m sestamibi was injected at rest. Stress images were obtained stress and rest images were reconstructed and compared in the short axis vertical long and horizontal long axis. Gated images were also obtained. Perfusion SPECT analysis: Review of the stress images demonstrated mildly reduced perfusion noted in the apex. The resting images similarly demonstrated mildly reduced perfusion noted in the apex. The rest of the hough appear to be normally perfused. Gated SPECT analysis: The gated ejection fraction is noted to be 35% with global hypokinesis. Conclusion: Pharmacologic myocardial perfusion stress test with evidence of apical reduction in perfusion consistent with previous infarct. No obvious ischemia is noted. Cardiomyopathy present.
== END ==
PROVIDERS: PCP Family Medicine Geriatric Medicine; Referring Provider Internal Medicine Cardiovascular Disease; Visit Provider Internal Medicine Cardiovascular Disease
DX: I50.22 Chronic systolic (congestive) heart failure (principal)
CPT/HCPCS: 78452; 93017; A9500; A4216; J2785

== ENCOUNTER → 2021-08-02 11:39 | Outpatient (CLI) | payer MEDICARE, SELFPAY ==
[2021-08-02 12:45] LABS: Absolute Lymphocyte Count 1.55 X10^3/uL (0.83-4.51); Absolute Neutrophil Count 6.2 X10^3/uL (2.0-7.7); Basophil# 0.05 X10^3/uL; Basophil% 0.6 % (0-1); Eosinophil# 0.34 X10^3/uL; Eosinophils% 3.8 % (0-5); Hematocrit 35.5 % (40-54); Hemoglobin 11.5 g/dL (13.0-16.5); Lymphocyte # 1.55 X10^3/ul (0.83-4.51); Lymphocyte % 17.1 % (19-41); Mean Corp Hgb Conc 32.4 g/dL (32-36); Mean Corpuscular Volume 98.9 fL (80-94); Mean Platelet Vol. 11.2 fl (6.2-12.0); Monocyte# 0.87 X10^3/uL; Monocyte% 9.6 % (0-10); NRBC Flagged by Analyzer 0 % (0-5); Neutrophil # 6.17 X10^3/uL (2.7-7.7); Neutrophil % 68.1 % (47-70); Platelet Count 284 K/mm3 (150-450); RBC Distribution Width CV 12.2 % (11.6-14.6); RBC Distribution Width SD 44.4 fl (35.1-43.9); Red Blood Count 3.59 M/mm3 (4.6-6.2); White Blood Count 9.1 K/mm3 (4.4-11.0)
[2021-08-02 13:21] LABS: Vitamin D,25 Hydroxy 14.8 ng/mL
[2021-08-02 13:36] LABS: ALB/GLOB Ratio 0.8 RATIO (0.9-2.4); AST(SGOT) 8 U/L (15-37); Alanine Aminotransfer ALT/SGPT 13 U/L (16-61); Albumin, Serum 3.4 g/dL (3.2-5.0); Alkaline Phosphatase 126 U/L (45-117); Anion Gap 4 (5-15); BUN 23 mg/dL (7-18); BUN/Creat Ratio 12.8 RATIO (10-20); Calcium,Total 9.2 mg/dL (8.5-10.1); Chloride 96 mmol/L (98-107); Cholesterol 121 mg/dL (200); EST Glomerular Filtration Rate 39 mL/min (>60); Est Glom Filt Rate - Afr Amer 48 mL/min (>60); Globulin 4.4 g/dL (2.2-4.2); Glucose 487 mg/dL (74-106); High Density Lipoprotein 41 mg/dL; Potassium 4.2 mmol/L (3.5-5.1); Protein, Total 7.8 g/dL (6.4-8.2); Sodium Level 132 mmol/L (136-145); Triglycerides 144 mg/dL; Very Low Density Lipoprotein 29 mg/dL (5-40)
== END ==
PROVIDERS: PCP Family Medicine Geriatric Medicine; Visit Provider Family Medicine Geriatric Medicine
DX: I12.9 Hypertensive chronic kidney disease with stage 1 through stage 4 chronic kidney disease, or unspecified chronic kidney disease (principal); E11.22 Type 2 diabetes mellitus with diabetic chronic kidney disease; N18.32 Chronic kidney disease, stage 3b; E78.5 Hyperlipidemia, unspecified; E55.9 Vitamin D deficiency, unspecified
CPT/HCPCS: 36415; 80053; 80061; 82306; 84443; 85025

== ENCOUNTER 2021-08-28 08:32 | Outpatient (CLI) | payer MEDICARE, SELFPAY ==
--- NOTE | 2021-08-30 11:55 | PFT ---
INTRODUCTION: The patient is a 76-year-old male that presents for pulmonary function studies secondary to a diagnosis of shortness of breath. Respiratory therapy reported good patient effort. Bronchodilators were used during testing. INTERPRETATION: Forced expiration spirometry demonstrates the presence of a severe large airways obstructive ventilatory defect. There was a significant response to aerosolized bronchodilators noted. Spirograms are of good quality but do not plateau indicating slow emptying of the lungs. Body plethysmography was performed and revealed an elevated TLC and RV, indicative of underlying hyperinflation and air trapping. Diffusing capacity by single breath CO is reduced at 41% of predicted. IMPRESSION: Partially reversible severe large airways obstructive ventilatory defect with associated hyperinflation, air trapping and symmetric reduction in diffusing capacity.
== END 2021-08-28 23:59 | disposition short-term general hospital (02) ==
LOC: PSN 08:34
PROVIDERS: PCP Family Medicine Geriatric Medicine; Referring Provider Internal Medicine Critical Care Medicine; Visit Provider Internal Medicine Critical Care Medicine
DX: R06.02 Shortness of breath (principal)
CPT/HCPCS: 94060; 94726; 94729

== ENCOUNTER 2021-09-04 12:02 | Outpatient (CLI) | payer MEDICARE, SELFPAY ==
[2021-09-04 12:30] VITALS: PULSE 66; PULSE 73; PULSE 74; PULSE 87; PULSE 88; PULSE 89; PULSE 93; O2SAT 85; O2SAT 88; O2SAT 90; O2SAT 93; O2SAT 94
--- NOTE | 2021-09-04 15:12 | CPS ---
Patient came in on 3L, patient started test on RA and his oxygen was increased to 2L at the 3 min rosanna. Patient was increased again at the 5 min rosanna to 3L and finished the test on 3L. Cee ANDRADE
--- NOTE | 2021-09-04 15:15 | PCM.PSN.6M ---
PSN 6 Minute Walk Test 6 Minute Walk Test 6 Minute Walk Test: 6 Minute Walk Test PSN:6-Minute Walk Test Start: 09/04/21 13:08 Freq: Status: Active Protocol: RESP.6MINW Document 09/04/21 12:30 JLA (Rec: 09/04/21 14:38 JLA [id number]) 6 Minute Walk Test Date Performed 09/04/21 Time Performed 12:30 Height 6 ft Weight: 78.018 kg Weight in Pounds 172.[address]: Jean Marie Lehman Assistive device used: None Pre-test Oxygen Delivery Method Room Air Pulse Ox (%) 94 Pulse Rate (60-100 beats/min) 74 Dyspnea Ronald Scale (0-10) 0 Exertion Ronald Scale (6-20) 6 1st minute Oxygen Delivery Method Room Air Pulse Ox (%) 93 Pulse Rate (60-100 beats/min) 87 2nd minute Oxygen Delivery Method Room Air Pulse Ox (%) 85 Pulse Rate (60-100 beats/min) 88 3rd minute Oxygen Flow Rate (L/min) (L/min) 2 Oxygen Delivery Method Nasal Cannula Pulse Ox (%) 93 Pulse Rate (60-100 beats/min) 93 4th minute Oxygen Flow Rate (L/min) (L/min) 2 Oxygen Delivery Method Nasal Cannula Pulse Ox (%) 90 Pulse Rate (60-100 beats/min) 89 5th minute Oxygen Flow Rate (L/min) (L/min) 2 Oxygen Delivery Method Nasal Cannula Pulse Ox (%) 88 Pulse Rate (60-100 beats/min) 88 6th minute Oxygen Flow Rate (L/min) (L/min) 2 Oxygen Delivery Method Nasal Cannula Pulse Ox (%) 88 Pulse Rate (60-100 beats/min) 73 Dyspnea Ronald Scale (0-10) 0 Exertion Ronald Scale (6-20) 11 Post-test Oxygen Flow Rate (L/min) (L/min) 3 Oxygen Delivery Method Nasal Cannula Pulse Ox (%) 93 Pulse Rate (60-100 beats/min) 66 Full Laps Walked 11 Partial Lap, Number of Tiles Walked 0 Total Distance Walked (ft) 649 Interpretation Interpretation: The patient was noted to be 94% on room air at rest. The patient did desaturate in the second minute as low as 85% and was placed on 2 L nasal cannula with improvement to 93%. The patient then continued ambulating requiring 3 L/min to maintain saturations throughout testing. In total, the patient traveled 649 feet over the course of 6 minutes with no assistive devices and 2 breaks. Recommendations Recommendations: The patient requires no supplemental oxygen at rest, but should be using 3 L nasal cannula with any exertion.
== END 2021-09-04 23:59 | disposition short-term general hospital (02) ==
LOC: PSN 12:02
PROVIDERS: PCP Family Medicine Geriatric Medicine; Referring Provider Internal Medicine Critical Care Medicine; Visit Provider Internal Medicine Critical Care Medicine
DX: J44.9 Chronic obstructive pulmonary disease, unspecified (principal)
CPT/HCPCS: 94618

== ENCOUNTER 2021-10-12 19:45 | Inpatient (IN) | payer MEDICARE, SELFPAY ==
[2021-10-12 19:46] VITALS: BP 141/63; PULSE 105; RESP 21; TEMP 36.4; O2SAT 91; BMI 25.0
[2021-10-12 19:50] VITALS: BP 141/63; PULSE 105; RESP 21; TEMP 36.4; O2SAT 91
--- NOTE | 2021-10-12 20:45 | EKG12_ITS ---
Test Reason : FALL Blood Pressure : / mmHG Vent. Rate : 091 BPM Atrial Rate : 250 BPM P-R Int : 000 ms QRS Dur : 084 ms QT Int : 396 ms P-R-T Axes : 000 -31 -12 degrees QTc Int : 487 ms Normal sinus rhythm with PVC's Left axis deviation Nonspecific ST and T wave abnormality Prolonged QT Abnormal ECG Confirmed by SHOLA WINN, HEBERT ([id number]), commissioning editor MAGDA CRISOSTOMO ([id number]) on 10/15/2021 12:14:26 PM Referred By: FARZANEH Confirmed By:HEBERT JOLLEY MD
--- NOTE | 2021-10-12 20:47 | ED.VIS.FALL ---
HPI HPI - Fall History of Present Illness Chief Complaint: Fall Detail of Chief Complaint: Patient states he did not fall he just felt weak and lowered himself to his Informant: patient Occured/Mechanism Occurred: Today Usually ambulates: Without assistance Pain/Injury Pain Location: none Associated Symptoms Associated Symptoms: Positive for Weakness; Negative for Parasthesias, Loss of function, Inability to ambulate, Loss of consciousness and Amnesia Narrative Narrative: 36-year-old male history of CHF, CKD, hypertension, diabetes, COPD on 4 L oxygen at home. States today he walked to the restroom felt weak lowered himself to the ground. He denies falling. States he was able to get up. Called his neighbor who is a nurse who then had him brought in. He denies any injuries. He denies any recent illness. She states he generally weak. Denies any recent vomiting or fever. He has a chronic cough. Has intermittent diarrhea. Prior similar symptoms: No Recent Illness/Hospitalization: No PFSH PFSH Medical History BPH (benign prostatic hyperplasia) Chronic HFrEF (heart failure with reduced ejection fraction) Chronic kidney disease (CKD) COPD (chronic obstructive pulmonary disease) Essential hypertension Hyperlipidemia Renal calculi Type 2 diabetes mellitus Home Medications albuterol sulfate [Ventolin HFA] 2 puff INHALATION Q4H PRN PRN 06/04/13 [History Last Taken 04/17/21] fluticasone fur. 200 mcg-umeclid 62.5 mcg-vilant 25 mcg inhalat.powder 1 inh INHALATION DAILY 03/20/21 [History Last Taken 04/17/21] glimepiride 1 mg tablet 1 mg PO DAILY 03/20/21 [History Last Taken 04/17/21] pravastatin 40 mg tablet 40 mg PO QHS 03/20/21 [History Last Taken 04/16/21] tamsulosin 0.4 mg capsule 0.4 mg PO DAILY 03/20/21 [History Last Taken 04/16/21] budesonide-formoterol [Symbicort] 2 inh INHALATION DAILY 04/17/21 [History Last Taken 04/17/21] furosemide 40 mg tablet 40 mg PO DAILY #90 tab 05/18/21 [Rx Last Taken Unknown] carvedilol 6.25 mg tablet See Rx Instructions .ROUTE .COMPLEX #180 tab 06/28/21 [Rx Last Taken Unknown] metformin 500 mg tablet 500 mg PO BID tab 08/15/21 [History Last Taken Unknown] sacubitril 49 mg-valsartan 51 mg tablet See Rx Instructions .ROUTE .COMPLEX #180 tab 09/18/21 [Rx Last Taken Unknown] Allergy/AdvReac Type Severity Reaction Status Date / Time Penicillins Allergy Swelling Verified 10/12/21 19:52 Social History Smoking Status: Former smoker Tobacco: How many years used: 30 how long ago did patient quit smoking: quit 04/2021 substance use type: does not use ROS ROS ED ROS Narrative Generalized weakness. Review of Systems ROS Unobtainable: Denies due to encephalopathy Constitutional Constitutional ED: Denies fever(s) Eyes Eyes: Denies change in vision ENT ENT ED: Denies ear pain Cardiovascular Cardiovascular: Denies chest pain Respiratory/Chest Respiratory/Chest: Denies cough or dyspnea Gastrointestinal Gastrointestinal: Reports diarrhea; Denies abdominal pain, nausea or vomiting Genitourinary Genitourinary ED: Denies dysuria Musculoskeletal Musculoskeletal: Denies myalgias Integumentary Denies rash Neurologic Neurologic: Denies headache(s) Psychiatric Psychiatric: Denies depression Endocrine Endocrinology: Denies polyuria Hematologic/Lymphatic Hematologic/Lymphatic: Denies easy bruising Allergic/Immunologic Allergic/Immunologic ED: Denies urticaria EXAM Physical Exam Narrative Exam Narrative: 76-year-old male. No acute distress. Vital signs stable afebrile. On his normal 4 L is 91%. Without oxygen is hypoxic. He does not look septic or toxic. H EENT exam unremarkable atraumatic. Moist with members. Neck nontender. No JVD. Lungs coarse breath sounds bilaterally. Heart regular rhythm rate about 105 no murmur. Chest wall nontender. Abdomen soft nontender. Moving all 4 extremities. Nontender. Normal range of motion. Normal cleaner and dyer strength. Normal dorsi plantar flexion. Back nontender. No motor deficits. Answering questions following commands. Const Vital Signs: 10/12/21 19:46 10/12/21 19:50 10/12/21 21:09 Temperature 97.6 F L 97.6 F L Temperature Source Temporal Temporal Pulse Rate 105 H 105 H 96 Respiratory Rate 21 H 21 H 18 Respiratory Effort Normal Non-Labored Respiratory Depth Normal Respiratory Pattern Normal Blood Pressure 141/63 H 141/63 H Blood Pressure Mean 89 89 Pulse Ox 91 91 95 Oxygen Delivery Method Nasal Cannula Nasal Cannula Nasal Cannula Oxygen Flow Rate (L/min) 4 4 4 Positive well nourished and well developed; Negative for obese, cachectic, contractures or unkempt General Appearance ED: well developed and NAD; Negative for unkempt, cachectic or contractures Nutritional Appearance: Negative for cachectic or obese HEENT Reports normocephalic atraumatic Eyes PERRL and EOMs intact bilaterally General Eye ED: Negative for pale conjunctiva or scleral icterus Neck full ROM, no lymphadenopathy and supple General: Negative for tenderness Chest Wall inspection of chest normal and palpation of chest normal Resp normal respiratory effort, no retractions and No clear to auscultation bilaterally Resp Narrative: Coarse breath sounds bilaterally. Auscultation: Negative for rales, rhonchi or wheezes Cardio regular rhythm, S1 normal heart sound, S2 normal heart sound and no murmurs; Negative for regular rate Rate: tachycardic GI non-tender, non-distended and no masses Auscultation: normoactive bowel sounds Palpation: soft; Negative for guarding Back/Spine no CVA tenderness General Back: Negative for CVA tenderness Cervical Spine: Negative for cervical spine tenderness Thoracic Spine / Upper Back: Negative for thoracic spinal tenderness Lumbar Spine / Lower Back: Negative for lumbar spinal tenderness or paraspinal muscle tenderness Extremity normal to inspection, full ROM and no joint enlargement Neuro oriented x3, moves all extremities and no focal motor deficits Sensorium / Orientation: alert, oriented to person, oriented to place and oriented to time; Negative for orientation impaired, confused, lethargic or stuporous Psych mental status grossly normal and thought process normal Appearance: Negative for unkempt Mood & Affect: Negative for depressed or tearful Skin Lesions: no lesions and No lesion noted Rashes: no rashes and No rashes noted Trauma: Negative for abrasion or laceration MDM MDM MDM Narrative Medical decision making narrative: 76 yo male lives alone at home. Complain generalized weakness. Exam benign. Screening labs and urinalysis being obtained. Patient be treated IV fluids. IV antibiotics with Rocephin and Zithromax for pneumonia. I will speak to the hospitalist about having patient admitted. He also has acute kidney injury. Repeat exam is doing well at 10:50 PM. Lab Data Attestation: I reviewed the patient's lab results. Lab results narrative: CBC is elevated 17.5. H&H of 10 and 32. Electrolytes show potassium 3.4. Gap is 6 BUN 22 creatinine 2.19. Urine shows 5-10 red cells no white cells rare bacteria negative nitrates. Labs: Laboratory Results - last 24 hr 10/12/21 10/12/21 10/12/21 19:50 19:50 20:52 WBC 17.5 H RBC 3.34 L Hgb 10.4 L Hct 32.5 L MCV 97.3 H MCH 31.1 MCHC 32.0 RDW Std Deviation 42.5 RDW Coeff of Naty 11.9 Plt Count 275 MPV 10.8 Sodium 138 Potassium 3.4 L Chloride 102 Carbon Dioxide 30.0 Anion Gap 6 BUN 22 H Creatinine 2.19 H Estim Creat Clear Calc 31.99 Est GFR (MDRD) Af Amer 38 L Est GFR (MDRD) Non-Af 31 L BUN/Creatinine Ratio 10.0 Glucose 290 H Calcium 8.8 Urine Color Yellow Urine Clarity Clear Urine pH 5.0 Ur Specific Simms 1.015 Urine Protein 30 H Urine Glucose (UA) Normal Urine Ketones Negative Urine Occult Blood 250 H Urine Nitrite Negative Urine Bilirubin Negative Urine Urobilinogen Normal Ur Leukocyte Esterase 100 H Urine RBC 5-10 SEEN Urine WBC 0-5 SEEN Ur Squamous Epith Cells 0 SEEN Urine Bacteria RARE Urine Mucus 0 SEEN Radiography Diagnostic Testing: Clinical Impression(s) from Imaging Studies Chest X-Ray 10/12/21 21:00 IMPRESSION: 1. Suspected bibasilar, left greater than right, airspace disease overlying chronic special disease. Aspiration could have a similar appearance. Electronically Signed: Yimi Brown DO at 21:17 EST , Chest x-ray, portable, single view interpreted [facility] radiologist does look like bilateral lower lobe infiltrates. Consistent with pneumonia. Which would also go along with his white count is generalized weakness. Rhythm Strip Rhythm Strip: Junctional rhythm Rate: 91 EKG Initial EKG: Attestation: I personally reviewed and interpreted this EKG as follows: Interpretation: No Acute Injury Pattern and Junctional Comments: Junctional rhythm rate of 91. Frequent PVCs. Prior EKG tracings: available for review Discharge Plan Dx/Rx/DC Orders Clinical Impression: Bilateral interstitial pneumonia, COPD (chronic obstructive pulmonary disease), Weakness, Acute kidney injury, Acute dehydration Disposition Disposition: [facility]
[2021-10-12 20:54] LABS: Hematocrit 32.5 % (40-54); Hemoglobin 10.4 g/dL (13.0-16.5); Mean Corpuscular Hgb 31.1 pg (27.0-32.0); Mean Corpuscular Volume 97.3 fL (80-94); Mean Platelet Vol. 10.8 fl (6.2-12.0); Platelet Count 275 K/mm3 (150-450); RBC Distribution Width CV 11.9 % (11.6-14.6); RBC Distribution Width SD 42.5 fl (35.1-43.9); Red Blood Count 3.34 M/mm3 (4.6-6.2); White Blood Count 17.5 K/mm3 (4.4-11.0)
--- NOTE | 2021-10-12 21:00 | RAD_ITS ---
INDICATION: weakness EXAMINATION/TECHNIQUE: X-RAY - XR Chest 1 View COMPARISON: 04/19/2021 chest x-ray FINDINGS: LINES/DEVICES: None. LUNGS: Significant bibasilar coarsened interstitial lung markings with overlying bibasilar airspace disease, more notably involving the left lower lobe. Findings may represent chronic interstitial lung disease with overlying atypical infection. Aspiration is also considered. No pleural effusion. No significantly increased lung volumes. MEDIASTINUM AND CARDIOVASCULAR STRUCTURES: Normal size and contour of the cardiomediastinal silhouette. No evidence of pulmonary vascular congestion. BONES AND SOFT TISSUES: No abnormality within limits of the exam. RAD/Chest 1 View (Portable) IMPRESSION: 1. Suspected bibasilar, left greater than right, airspace disease overlying chronic special disease. Aspiration could have a similar appearance. Electronically Signed: Yimi Brown DO at 21:17 EST ,
[2021-10-12 21:02] LABS: Anion Gap 6 (5-15); BUN 22 mg/dL (7-18); Calcium,Total 8.8 mg/dL (8.5-10.1); Chloride 102 mmol/L (98-107); Creatinine, Serum 2.19 mg/dL (0.70-1.30); EST Glomerular Filtration Rate 31 mL/min (>60); Est Glom Filt Rate - Afr Amer 38 mL/min (>60); Estimated Creatinine Clearance 31.99 ml/min; Glucose 290 mg/dL (74-106); Potassium 3.4 mmol/L (3.5-5.1); Sodium Level 138 mmol/L (136-145)
[2021-10-12 21:04] LABS: Mucous, Urine 0 SEEN /hpf (<or=2+); Squamous Epithelial Cells - UA 0 SEEN /hpf (0-5)
[2021-10-12 21:09] VITALS: PULSE 96; RESP 18; O2SAT 95
[2021-10-12 21:12] LABS: Color, Urine Yellow (Yellow); Glucose, Dipstick Normal (Normal); Ketone-Dipstick Negative (Negative); Leukocyte Esterase-Dipstick 100 /ul (Negative); Nitrite-Dipstick Negative (Negative); Occult Blood-Urine 250 /ul (Negative); Protein-Dipstick 30 mg/dl (Negative); Specific Gravity, Urine 1.015 (1.002-1.030); Urine Bilirubin Dipstick Negative (Negative); Urine Clarity Clear (Clear); Urine Urobilinogen Normal (Normal)
[2021-10-12 21:24] LABS: Bacteria RARE /hpf (None Seen); Red Blood Cells-Urine 5-10 SEEN /hpf (0-5); White Blood Cells 0-5 SEEN /hpf (0-5)
[2021-10-12 21:52] VITALS: O2SAT 92
[2021-10-12] MEDS: 0.9% Normal Saline 1,000 ML 999 ML IV (22:57)
[2021-10-12 23:00] VITALS: BP 147/63; PULSE 84; RESP 19; O2SAT 94
--- NOTE | 2021-10-12 23:16 | PCM.HP.STD ---
HPI - General General Date of Admission: 10/12/21 HPI Narrative RAJWINDER KEYS, is a 76 M with a significant history of COPD on inhalers; heart failure with reduced ejection fraction on guide directed medical therapy; COPD; hyperlipidemia; BPH and diabetes mellitus who presents to the emergency department with weakness. Patient tried to get up however he was too weak that he could not get up. He ended up crawling. He called a neighbor who is a nurse. The neighbor subsequently called the paramedics on patient's behalf. Patient was brought to the emergency department by paramedics, Patient denies shortness of breath. He reports a cough with postnasal drainage. [facility]LY [facility] Medical History BPH (benign prostatic hyperplasia) Chronic HFrEF (heart failure with reduced ejection fraction) Chronic kidney disease (CKD) COPD (chronic obstructive pulmonary disease) Essential hypertension Hyperlipidemia Renal calculi Type 2 diabetes mellitus Home Medications albuterol sulfate [Ventolin HFA] 2 puff INHALATION Q4H PRN PRN 06/04/13 [History Last Taken 04/17/21] fluticasone fur. 200 mcg-umeclid 62.5 mcg-vilant 25 mcg inhalat.powder 1 inh INHALATION DAILY 03/20/21 [History Last Taken 10/12/21] glimepiride 1 mg tablet 4 mg PO BID 03/20/21 [History Last Taken 10/12/21] pravastatin 40 mg tablet 40 mg PO QHS 03/20/21 [History Last Taken 10/11/21] tamsulosin 0.4 mg capsule 0.4 mg PO DAILY 03/20/21 [History Last Taken 10/11/21] budesonide-formoterol [Symbicort] 2 inh INHALATION DAILY PRN 04/17/21 [History Last Taken 04/17/21] furosemide 40 mg tablet 40 mg PO DAILY #90 tab 05/18/21 [Rx Last Taken 10/12/21] metformin 500 mg tablet 500 mg PO BID tab 08/15/21 [History Last Taken 10/13/21] sacubitril 49 mg-valsartan 51 mg tablet See Rx Instructions .ROUTE .COMPLEX #180 tab 09/18/21 [Rx Last Taken Unknown] carvedilol 6.25 mg PO BID 10/12/21 [History Last Taken 10/12/21] sacubitril-valsartan [Entresto] 1 tab PO BID 10/12/21 [History Last Taken 10/12/21] Allergy/AdvReac Type Severity Reaction Status Date / Time Penicillins Allergy Swelling Verified 10/12/21 19:52 Surgical History H/O tooth extraction Social History Smoking Status: Former smoker Tobacco: How many years used: 30 how long ago did patient quit smoking: quit 04/2021 substance use type: does not use ROS ROS Narrative Constitutional: Denies fever, chills, fatigue, anorexia and change in weight Eyes: Denies blurry vision, change in eye color, change in vision, discharge from eye(s), double vision, erythema, eye pain, loss of vision or other HEENT: Reports postnasal drip. Denies abnormal hearing, dysphagia, ear pain, epistaxis, headache(s), hearing loss, nasal congestion, sinus pressure, sore throat or other Cardiovascular: Denies chest pain or palpitations. Denies dyspnea on exertion, orthopnea and paroxysmal nocturnal dyspnea Respiratory/Chest: Reports coughing. Denies phlegm production. Gastrointestinal: Denies abdominal pain, coffee ground emesis, constipation, diarrhea, dyspepsia, hematemesis, hematochezia, loose stools, melena, nausea, vomiting or other Genitourinary: Denies burning urination, difficulty urinating, dysuria, hematuria, nocturia, urinary frequency, urinary hesitancy, urinary incontinence, urinary urgency or other Musculoskeletal: Denies arthralgias, back pain, joint pain, joint stiffness, joint swelling, myalgias, neck pain or other Neurologic: Denies abnormal gait, abnormal speech, confusion, disequilibrium, dizziness, focal weakness, headache(s), numbness, paresthesias, seizure-like activity, seizures, syncope, tingling, tremor(s) or other Psychiatric: Denies anxiety, depression, homicidal ideation, suicidal ideation or other Endocrinology: Denies change in body appearance, cold intolerance, excessive sweating, heat intolerance, polydipsia, polyuria or other Hematologic/Lymphatic: Denies anemia, easy bleeding, easy bruising, lymphadenopathy or other Integumentary: Denies rashes Allergic/Immunologic: Denies rhinitis, hives, eczema, asthma or other Vital Signs Vital Signs Vital Signs: 10/12/21 19:46 10/12/21 19:50 10/12/21 21:09 Temperature 97.6 F L 97.6 F L Temperature Source Temporal Temporal Pulse Rate 105 H 105 H 96 Respiratory Rate 21 H 21 H 18 Respiratory Effort Normal Non-Labored Respiratory Depth Normal Respiratory Pattern Normal Blood Pressure 141/63 H 141/63 H Blood Pressure Mean 89 89 Pulse Ox 91 91 95 Oxygen Delivery Method Nasal Cannula Nasal Cannula Nasal Cannula Oxygen Flow Rate (L/min) 4 4 4 Weight Weight: 83.8 kg Body Mass Index (BMI) 25.0 Physical Exam Narrative Physical exam: General: Well-nourished, well-developed. Head: Normocephalic, atraumatic, no tenderness Eyes: PERRLA, EOMI ENT, edentulous no trauma, no rhinorrhea Neck: Nontender, full range of motion, no spinal tenderness, deformities, step-off CVS: Regular rate and rhythm. S1-S2 present. No murmur, gallop or rub. Respiratory : Rhonchi. Chest wall nontender. Abdomen: Soft, nontender, nondistended, normal bowel sounds, no masses : Deferred Back: Nontender, no CVA tenderness, no midline spinal tenderness, deformities, step-offs Extremities: Nontender full range of motion, no trauma Skin: Normal color, no trauma, abrasions Neuro: Alert, oriented, cranial nerves II through XII grossly intact. Psychiatry: Normal mood. Normal affect. Not depressed. Not anxious. Results Lab / Micro Data Result Diagrams: 10/12/21 19:50 10/12/21 19:50 Labs: Laboratory Results - last 24 hr 10/12/21 19:50: WBC 17.5 H, RBC 3.34 L, Hgb 10.4 L, Hct 32.5 L, MCV 97.3 H, MCH 31.1, MCHC 32.0, RDW Std Deviation 42.5, RDW Coeff of Naty 11.9, Plt Count 275, MPV 10.8 10/12/21 19:50: Sodium 138, Potassium 3.4 L, Chloride 102, Carbon Dioxide 30.0, Anion Gap 6, BUN 22 H, Creatinine 2.19 H, Estim Creat Clear Calc 31.99, Est GFR (MDRD) Af Amer 38 L, Est GFR (MDRD) Non-Af 31 L, BUN/Creatinine Ratio 10.0, Glucose 290 H, Calcium 8.8 10/12/21 20:52: Urine Color Yellow, Urine Clarity Clear, Urine pH 5.0, Ur Specific [place] 1.015, Urine Protein 30 H, Urine Glucose (UA) Normal, Urine Ketones Negative, Urine Occult Blood 250 H, Urine Nitrite Negative, Urine Bilirubin Negative, Urine Urobilinogen Normal, Ur Leukocyte Esterase 100 H, Urine RBC 5-10 SEEN, Urine WBC 0-5 SEEN, Ur Squamous Epith Cells 0 SEEN, Urine Bacteria RARE, Urine Mucus 0 SEEN Rhythm Strip Rhythm Strip: Junctional rhythm Rate: 91 Radiology Impression Chest X-Ray 10/12/21 21:00 IMPRESSION: 1. Suspected bibasilar, left greater than right, airspace disease overlying chronic special disease. Aspiration could have a similar appearance. Electronically Signed: Yimi Brown, at 21:17 EST , Assessment & Plan Assessment/Plan (1) Bilateral interstitial pneumonia: (2) Weakness: PLAN: Acute bilateral interstitial pneumonia Gram-positive, gram-negative or atypical. Less likely aspiration pneumonia as patient is edentulous. Chest x-ray was visualized and independently interpreted. I agree with radiologist interpretation above. Previous chest x-ray was also reviewed. Previous chest x-ray also showed bilateral infiltrates however current chest x-ray appears worsened. Rapid Covid antigen obtained at the emergency department was negative. The patient symptomatology does not look like Covid. So no further Covid work-up indicated. Strep pneumoniae and legionella urine antigen ordered. Started on ceftriaxone and IV azithromycin at emergency department and continued. Mucinex ordered. White count on presentation was 17.5. Potassium is mildly low at 3.4. Trend CBC and BMP. Diabetes mellitus Patient with hyperglycemia on presentation Hold home Metformin. Accu-Chek with correction scale insulin ordered. Glimepiride continued. IVAN on CKD Stage IIIb CKD Likely from Diabetic nephropathy and CHF Baseline creatinine of 1.8 Creatinine on admission was 2.02. Received normal saline bolus at the emergency department. Last echocardiogram on 02/06/2021 showed an ejection fraction of 35%. Cautious use of fluid. We will hold off further IV fluids at this time. Hold Lasix. Hold Entresto. Hypertension Blood pressure is not within goal Coreg continued. Hold lasix and entresto secondary to IVAN As needed hydralazine ordered. Trend blood pressure and adjust blood pressure medications. Generalized weakness PT OT work with patient. Case management consult. DVT prophylaxis Subcutaneous Lovenox ordered. Charges/Coding Visit Charges Inpatient E&M: 98813 Init Hosp L3
[2021-10-12 23:18] VITALS: BP 133/60; PULSE 97; RESP 18; TEMP 36.9; O2SAT 95
[2021-10-12] MEDS: Ceftriaxone 1 GM/50 ML BAG IV (23:22)
[2021-10-12 23:51] VITALS: BMI 24.1
[2021-10-13] VITALS (11 sets, daily range): BP systolic 116–136; BP diastolic 56–92; PULSE 72–97; RESP 16–21; TEMP 36.5–37.3; O2SAT 92–96
[2021-10-13] MEDS: guaiFENesin 1,200 MG Tablet 1200 MG PO ×3 (00:22→21:25)
[2021-10-13 00:36] LABS: Bedside Glucose 232 mg/dL (70-110)
[2021-10-13] MEDS: Insulin Lispro 100 UNIT/ML INSULN.PEN SC ×4 (00:37→21:25)
[2021-10-13] MEDS: Ipratropium/Albuterol Sulfate 3 ML AMPUL.NEB INHALATION ×4 (00:48→19:16)
[2021-10-13 06:55] LABS: Absolute Lymphocyte Count 0.67 X10^3/uL (0.83-4.51); Absolute Neutrophil Count 9.8 X10^3/uL (2.0-7.7); Basophil# 0.04 X10^3/uL; Basophil% 0.3 % (0-1); Eosinophil# 0.01 X10^3/uL; Eosinophils% 0.1 % (0-5); Hemoglobin 9.7 g/dL (13.0-16.5); Lymphocyte # 0.67 X10^3/ul (0.83-4.51); Lymphocyte % 5.9 % (19-41); Mean Corp Hgb Conc 32.3 g/dL (32-36); Mean Corpuscular Hgb 31.2 pg (27.0-32.0); Mean Corpuscular Volume 96.5 fL (80-94); Mean Platelet Vol. 10.2 fl (6.2-12.0); Monocyte# 0.86 X10^3/uL; Monocyte% 7.5 % (0-10); NRBC Flagged by Analyzer 0 % (0-5); Neutrophil # 9.82 X10^3/uL (2.7-7.7); Neutrophil % 85.8 % (47-70); Platelet Count 233 K/mm3 (150-450); RBC Distribution Width SD 42.4 fl (35.1-43.9); Red Blood Count 3.11 M/mm3 (4.6-6.2); White Blood Count 11.5 K/mm3 (4.4-11.0)
[2021-10-13 06:56] LABS: Bedside Glucose 111 mg/dL (70-110)
[2021-10-13 07:09] LABS: Anion Gap 5 (5-15); BUN 22 mg/dL (7-18); BUN/Creat Ratio 12.1 RATIO (10-20); Calcium,Total 8.2 mg/dL (8.5-10.1); Chloride 102 mmol/L (98-107); Creatinine, Serum 1.82 mg/dL (0.70-1.30); EST Glomerular Filtration Rate 39 mL/min (>60); Est Glom Filt Rate - Afr Amer 47 mL/min (>60); Estimated Creatinine Clearance 38.49 ml/min; Glucose 112 mg/dL (74-106); Potassium 3.1 mmol/L (3.5-5.1); Sodium Level 139 mmol/L (136-145)
[2021-10-13] MEDS: Carvedilol 6.25 MG Tablet PO ×2 (07:27→21:25)
[2021-10-13] MEDS: Tamsulosin HCl 0.4 MG Capsule PO (07:27)
[2021-10-13] MEDS: Glimepiride 4 MG Tablet PO (07:28)
[2021-10-13] MEDS: Budesonide Respules 0.5 MG/2 ML AMPUL.NEB. INHALATION ×2 (07:36→19:16)
[2021-10-13] MEDS: Potassium Chloride Oral Tablet 20 MEQ 40 MEQ PO (08:33)
[2021-10-13] MEDS: Menthol/Lanolin/Calamine/Znox 113 GM Tube 1 APPLIC TOPICAL ×2 (11:05→21:26)
[2021-10-13 11:11] LABS: Bedside Glucose 174 mg/dL (70-110)
--- NOTE | 2021-10-13 12:07 | PN.HOSP_ITS ---
Subjective Subjective Patient seen and examined. He had no active complaints today and feeling better. He denies any cough and no chest pain, palpitations, dizziness, nausea vomiting. Review of systems otherwise negative. He has remained hemodynamically stable. He is on 2 L of oxygen; he usually wears 4 L at home. Objective Data Objective Data Vital Signs: Vital Signs Temp Pulse Resp BP Pulse Ox 99.1 F 82 16 122/56 H 95 10/13/21 08:38 10/13/21 08:38 10/13/21 08:38 10/13/21 08:38 10/13/21 08:38 Oxygen Flow Rate (L/min) 1.5 Oxygen Delivery Method Nasal Cannula Weight: 177 lb 14.609 oz Body Mass Index (BMI) 24.1 Intake & Output: Intake and Output for Last 24 Hours 10/11/21 10/12/21 10/13/21 23:59 23:59 23:59 Intake Total 1305 / 1305 Output Total 150 / 150 Balance 1155 / 1155 Lab / Micro Data Result Diagrams: 10/13/21 06:35 10/13/21 06:35 Labs: Laboratory Results - last 24 hr 10/12/21 19:50: WBC 17.5 H, RBC 3.34 L, Hgb 10.4 L, Hct 32.5 L, MCV 97.3 H, MCH 31.1, MCHC 32.0, RDW Std Deviation 42.5, RDW Coeff of Naty 11.9, Plt Count 275, MPV 10.8 10/12/21 19:50: Sodium 138, Potassium 3.4 L, Chloride 102, Carbon Dioxide 30.0, Anion Gap 6, BUN 22 H, Creatinine 2.19 H, Estim Creat Clear Calc 31.99, Est GFR (MDRD) Af Amer 38 L, Est GFR (MDRD) Non-Af 31 L, BUN/Creatinine Ratio 10.0, Glucose 290 H, Calcium 8.8 10/12/21 20:52: Urine Color Yellow, Urine Clarity Clear, Urine pH 5.0, Ur Specific [place] 1.015, Urine Protein 30 H, Urine Glucose (UA) Normal, Urine Ketones Negative, Urine Occult Blood 250 H, Urine Nitrite Negative, Urine Bilirubin Negative, Urine Urobilinogen Normal, Ur Leukocyte Esterase 100 H, Urine RBC 5-10 SEEN, Urine WBC 0-5 SEEN, Ur Squamous Epith Cells 0 SEEN, Urine Bacteria RARE, Urine Mucus 0 SEEN 10/13/21 00:32: POC Glucose 232 H 10/13/21 06:35: WBC 11.5 H, RBC 3.11 L, Hgb 9.7 L, Hct 30.0 L, MCV 96.5 H, MCH 31.2, MCHC 32.3, RDW Std Deviation 42.4, RDW Coeff of Naty 12.0, Plt Count 233, MPV 10.2, Immature Gran % (Auto) 0.400, Neut % (Auto) 85.8 H, Lymph % (Auto) 5.9 L, [place] % (Auto) 7.5, Eos % (Auto) 0.1, Baso % (Auto) 0.3, Absolute Neuts (auto) 9.8 H, Absolute Lymphs (auto) 0.67 L, Nucleated RBC % 0 10/13/21 06:35: Sodium 139, Potassium 3.1 L, Chloride 102, Carbon Dioxide 32.0, Anion Gap 5, BUN 22 H, Creatinine 1.82 H, Estim Creat Clear Calc 38.49, Est GFR (MDRD) Af Amer 47 L, Est GFR (MDRD) Non-Af 39 L, BUN/Creatinine Ratio 12.1, Glucose 112 H, Calcium 8.2 L 10/13/21 06:41: POC Glucose 111 H 10/13/21 11:02: POC Glucose 174 H Micro: Microbiology 10/12/21 23:20 Nasal Secretion SARS-CoV-2 Antigen (Rapid) - Final Radiography Diagnostic Testing: Radiology Impression Chest X-Ray 10/12/21 21:00 IMPRESSION: 1. Suspected bibasilar, left greater than right, airspace disease overlying chronic special disease. Aspiration could have a similar appearance. Electronically Signed: Yimi Brown DO at 21:17 EST , Rhythm Strip Rhythm Strip: Junctional rhythm Rate: 91 Physical Exam Const alert, oriented x3 and no apparent distress Exam Limitations: no limitations HEENT head/scalp atraumatic and moist oral mucous membranes Head and Scalp: normocephalic Eyes PERRL, EOMs intact bilaterally and conjunctivae normal Neck no lymphadenopathy and supple Resp Resp Narrative: mildly diminished breath sounds bibasally, no wheezes or crackles. on 2L of oxygen by nasal canula Cardio regular rate, regular rhythm, S1 normal heart sound, S2 normal heart sound and no murmurs GI normal to inspection, nondistended, normoactive bowel sounds, soft to palpation, non-tender and non-distended Extremity normal to inspection, full ROM and no clubbing, cyanosis or edema Peripheral Pulses: Yes pulses 2+ throughout Skin no rashes or lesions noted Neuro oriented x3, CN's II-XII intact bilaterally and moves all extremities Sensorium / Orientation: awake and alert Psych affect normal Assessment & Plan Assessment/Plan (1) Bilateral interstitial pneumonia: (2) Weakness: (3) Acute kidney injury: PLAN: #Bilateral interstitial pneumonia * Covid test done was negative. On IV ceftriaxone and azithromycin. * WBC is trending downwards to 11.5 today * Down to 2 L of oxygen. He usually wears 4 L at home. Titrate oxygen to maintain saturation above 90%. * Breathing treatments with bronchodilators. * #Type 2 diabetes mellitus: On glimepiride. Insulin sliding scale. Accu-Cheks AC at bedtime. Metformin on hold due to IVAN on CKD #Hypokalemia: K is 3.1. Will replace and trend. #Chronic hypoxic respiratory failure due to COPD * usually wears 4L at home. NOw on 2L of oxygen * breathing treatment with bronchodilators * titrate oxygen to maintain sats >90% * #IVAN on CKD stage IIIb * Baseline creatinine is 1.8. Creatinine on admission was 2.02 and creatinine has trended down to baseline. * Lasix and Entresto on hold. On monitor #HFrEF: * not in exacerbation. on Entresto and lasix which were held due to IVAN on CKD. Since Cr has trended downwards, will resume * Has known EF of 35% from 2D echo done in January 2021. #Hypertension: on coreg. Entresto and lasix held due to IVAN. IV hydralazine prn #Debility due to mechanicall fall * PT/OT on board. Fall precautions. * DVT prophylaxis: lovenox Charges/Coding Visit Charges Inpatient E&M: 88915 Subs Hosp L2
--- NOTE | 2021-10-13 14:25 | CASEMGMT ---
RICARDA HENSLEY WIRER MAINTENANCE CM to room to meet with patient for initial transition planning/care coordination assessment. RICARDA HENSLEY introduced self and role at [facility]. Pt voices understanding and consents to assessment at this time. Pt resting in bed in no distress at this time. Pt is A/O at this time and answers all questions appropriately. Care providers, pharmacy, and demographics verified/updated at this time. PCP: Dr Sandy Specialists: Dr Lehman--pulmonology, Dr Martinez-cardiology Preferred Pharmacy:[facility] Insurance: [facility] Prescription Benefit: Yes Living Will/HPOA: Pt states he has both, but is unsure of who HPOA is. He thinks it is his step-son, Bertram Stark. He states if it is Bertram, that Bertram would have a copy of the HPOA. He states he completed this paperwork @ his attorney at law's and he plans to inquire @ his attorney at law's office about this once he returns home. Pt provided Bertram's contact info and agreeable to having his info added to demographics. Same done at this time. Manju Stark: step-son. [phone]. LNOK: Sister, Senait Garzon. Step-son, Bertram Stark. Friend, Elizabeth Clifford Living Arrangements: Lives alone in 2-story home w/2-3 steps to enter. Bedroom and 1/2 bath on 1st floor. Indep w/ADL's and IADL's until recent illness. Pt was so weak prior to coming to the hospital, that he was crawling on the floor of his home. Neighbor is a nurse and she called the squad for pt. Transportation: Pt states drives self. Pt states his sister lives in [place]. He states if he is discharged home Friday, that she can go to his home to get the Inogen (portable oxygen concentrator) and she can take pt home. If pt is discharged Friday or later, then he most-likely will need to utilize the [facility] van transportation home d/t his sister works during the week. DME: States has the following DME: O2 @ 4 l/m continuously thru [employer]. Has concentrator and Inogen (portable concentrator). Pt states his sister can bring in the Inogen on Friday if he discharges home for him to go home on. If he discharges home Friday or after, Misbahia to be notified for portable O2 tank to be delivered to the hospital for pt to go home on. (RICARDA HENSLEY inquired if his sister could bring the portable O2 concentrator to the hospital on Friday so he has it to go home, but he states d/t her living so far away, that she would be be able to do that) Pt states no need for further DME at this time. HHC/SNF: No hx of SNF. Has had [facility] in the past. Pt states is interested in [facility] at discharge. Pt made aware this can not be set up over the weekend and if he discharges home on Friday, that he will need to contact Dr Sandy's office and have HHC set up thru them. He was also made aware Dr Sandy requires office visit prior to HHC. He voices understanding. Pt wishes to return home w/HHC and states has no concerns with going home at time of discharge. Pt voices no further concerns/needs at this time. Advised pt to ask for CM if any further questions/concerns/needs arise. Voices understanding. PLAN: Home w/HHC. Pt to f/u with Dr Sandy's office if he discharges home on Friday. CM to f/u with pt for HHC set-up on Friday if he has not been discharged Home ambulatory testing to be completed prior to discharge. Pt reports baseline O2 of 4l/m. If pt requires more than 4l/m O2, new O2 script to be faxed to [facility]. Tawanda SHEEHAN RN, CM
[2021-10-13] MEDS: 0.9% Saline Lock 10 ML Syringe IV (21:03)
[2021-10-13 21:11] LABS: Bedside Glucose 172 mg/dL (70-110)
[2021-10-13 21:15] LABS: Bedside Glucose 169 mg/dL (70-110)
[2021-10-13] MEDS: Pravastatin 40 MG Tablet PO (21:25)
[2021-10-14 03:41] VITALS: BP 130/52; PULSE 90; RESP 20; TEMP 36.8; O2SAT 93
[2021-10-14 06:50] LABS: Absolute Lymphocyte Count 0.91 X10^3/uL (0.83-4.51); Absolute Neutrophil Count 5.8 X10^3/uL (2.0-7.7); Basophil# 0.03 X10^3/uL; Basophil% 0.4 % (0-1); Eosinophil# 0.15 X10^3/uL; Hematocrit 30.3 % (40-54); Hemoglobin 10.1 g/dL (13.0-16.5); Lymphocyte # 0.91 X10^3/ul (0.83-4.51); Lymphocyte % 12.1 % (19-41); Mean Corp Hgb Conc 33.3 g/dL (32-36); Mean Corpuscular Hgb 31.8 pg (27.0-32.0); Mean Corpuscular Volume 95.3 fL (80-94); Mean Platelet Vol. 10.6 fl (6.2-12.0); Monocyte# 0.64 X10^3/uL; Monocyte% 8.5 % (0-10); NRBC Flagged by Analyzer 0 % (0-5); Neutrophil # 5.76 X10^3/uL (2.7-7.7); Neutrophil % 76.3 % (47-70); Platelet Count 220 K/mm3 (150-450); RBC Distribution Width CV 11.9 % (11.6-14.6); RBC Distribution Width SD 41.8 fl (35.1-43.9); Red Blood Count 3.18 M/mm3 (4.6-6.2); White Blood Count 7.5 K/mm3 (4.4-11.0)
[2021-10-14] MEDS: Menthol/Lanolin/Calamine/Znox 113 GM Tube 1 APPLIC TOPICAL ×2 (06:50→07:36)
[2021-10-14] MEDS: Insulin Lispro 100 UNIT/ML INSULN.PEN SC ×2 (06:50→11:07)
[2021-10-14 07:01] LABS: Bedside Glucose 158 mg/dL (70-110)
[2021-10-14 07:12] LABS: Anion Gap 6 (5-15); BUN 24 mg/dL (7-18); BUN/Creat Ratio 15.7 RATIO (10-20); Calcium,Total 8.1 mg/dL (8.5-10.1); Chloride 104 mmol/L (98-107); Creatinine, Serum 1.53 mg/dL (0.70-1.30); EST Glomerular Filtration Rate 47 mL/min (>60); Est Glom Filt Rate - Afr Amer 57 mL/min (>60); Estimated Creatinine Clearance 45.79 ml/min; Glucose 163 mg/dL (74-106); Potassium 3.4 mmol/L (3.5-5.1); Sodium Level 138 mmol/L (136-145)
[2021-10-14] MEDS: Budesonide Respules 0.5 MG/2 ML AMPUL.NEB. INHALATION (07:16)
[2021-10-14] MEDS: Ipratropium/Albuterol Sulfate 3 ML AMPUL.NEB INHALATION ×2 (07:16→13:34)
[2021-10-14] MEDS: Glimepiride 4 MG Tablet PO (07:35)
[2021-10-14] MEDS: Tamsulosin HCl 0.4 MG Capsule PO (07:36)
[2021-10-14] MEDS: Carvedilol 6.25 MG Tablet PO (07:36)
[2021-10-14] MEDS: guaiFENesin 1,200 MG Tablet 1200 MG PO (07:37)
[2021-10-14 07:38] VITALS: PULSE 81; RESP 19
[2021-10-14 09:46] VITALS: BP 122/58; PULSE 80; RESP 18; TEMP 36.8; O2SAT 94
[2021-10-14 11:21] LABS: Bedside Glucose 185 mg/dL (70-110)
--- NOTE | 2021-10-14 11:28 | DS.PCM_ITS ---
Providers Date of Admission: 10/12/21 Primary Care Physician: Dr. Silvano Sandy MD Reason For Visit: pneumonia Diagnosis Discharge Diagnosis (1) Bilateral interstitial pneumonia: Status: Acute Code(s): J84.9 - Interstitial pulmonary disease, unspecified (2) Weakness: Status: Acute Code(s): R53.1 - Weakness (3) Acute kidney injury: Status: Acute Code(s): N17.9 - Acute kidney failure, unspecified Medications at Discharge Home Medications albuterol sulfate [Ventolin HFA] 2 puff INHALATION Q4H PRN PRN 06/04/13 fluticasone fur. 200 mcg-umeclid 62.5 mcg-vilant 25 mcg inhalat.powder 1 inh INHALATION DAILY 03/20/21 glimepiride 1 mg tablet 4 mg PO BID 03/20/21 pravastatin 40 mg tablet 40 mg PO QHS 03/20/21 tamsulosin 0.4 mg capsule 0.4 mg PO DAILY 03/20/21 budesonide-formoterol [Symbicort] 2 inh INHALATION DAILY PRN 04/17/21 furosemide 40 mg tablet 40 mg PO DAILY #90 tab 05/18/21 metformin 500 mg tablet 500 mg PO BID tab 08/15/21 sacubitril 49 mg-valsartan 51 mg tablet See Rx Instructions .ROUTE .COMPLEX #180 tab 09/18/21 Entresto 1 tab PO BID 10/12/21 carvedilol 6.25 mg PO BID 10/12/21 levofloxacin 500 mg PO DAILY #5 tab 10/14/21 Hospital Course Operations None Summary of Care Provided Minutes Spent on Discharge: 45 Hospital Course: Patient is a 76-year-old male with a past medical history as outlined was admitted through the ED on 10/12/2021 with a complaint of weakness. Patient said he had been too weak and could not even get up and lay on the ground for a long while until he called a neighbor who called the paramedics. He denied any shortness of breath but admitted to a cough with postnasal drainage. Chest x-ray showed suspected bibasilar airspace disease overlying ch ronic lung disease. Was admitted and managed for debility and community- acquired pneumonia. He was started on IV ceftriaxone and azithromycin and hydrated with IV fluids. Physical therapy was also consulted and worked with patient. Patient usually wore 4 L of oxygen at home but was even on 2 L during this admission. He remained stable and was discharged home on 10/14/2021. He was discharged home on p.o. Levaquin 500 mg daily for 5 days. He is to follow- up with his primary care doctor 1 to 2 weeks. Patient seen and examined prior to discharge. He had no active complaints and felt well. Review of systems otherwise negative. Labs and vitals reviewed. Home medication reviewed and reconciled. Physical Exam Const alert, oriented x3 and no apparent distress Exam Limitations: no limitations HEENT normocephalic, head/scalp atraumatic, hearing grossly normal bilaterally and moist oral mucous membranes Eyes PERRL, EOMs intact bilaterally and conjunctivae normal Neck no lymphadenopathy and supple Resp Resp Narrative: mildly diminished breath sounds bibasally, no wheezes or crackles. on 2L of oxygen by nasal canula Cardio regular rate, regular rhythm, S1 normal heart sound, S2 normal heart sound and no murmurs GI normal to inspection, nondistended, normoactive bowel sounds, soft to palpation, non-tender and non-distended Extremity normal to inspection, full ROM and no clubbing, cyanosis or edema Skin no rashes or lesions noted Neuro oriented x3, CN's II-XII intact bilaterally and moves all extremities Sensorium / Orientation: awake and alert Psych affect normal Weight / BMI Weight Weight: 177 lb 14.609 oz Body Mass Index (BMI) 24.1 ABG / Lab / Microbiology Data Result Diagrams: 10/14/21 06:25 10/14/21 06:25 Laboratory: Laboratory Results - last 24 hr 10/13/21 16:12: POC Glucose 172 H 10/13/21 21:08: POC Glucose 169 H 10/14/21 06:25: WBC 7.5, RBC 3.18 L, Hgb 10.1 L, Hct 30.3 L, MCV 95.3 H, MCH 31.8, MCHC 33.3, RDW Std Deviation 41.8, RDW Coeff of Naty 11.9, Plt Count 220, MPV 10.6, Immature Gran % (Auto) 0.700, Neut % (Auto) 76.3 H, Lymph % (Auto) 12.1 L, [place] % (Auto) 8.5, Eos % (Auto) 2.0, Baso % (Auto) 0.4, Absolute Neuts (auto) 5.8, Absolute Lymphs (auto) 0.91, Nucleated RBC % 0 10/14/21 06:25: Sodium 138, Potassium 3.4 L, Chloride 104, Carbon Dioxide 28.0, Anion Gap 6, BUN 24 H, Creatinine 1.53 H, Estim Creat Clear Calc 45.79, Est GFR (MDRD) Af Amer 57 L, Est GFR (MDRD) Non-Af 47 L, BUN/Creatinine Ratio 15.7, Glucose 163 H, Calcium 8.1 L 10/14/21 06:49: POC Glucose 158 H 10/14/21 11:06: POC Glucose 185 H Microbiology: Microbiology 10/12/21 20:52 Urine, Clean Catch Legionella Antigen - Final 10/12/21 20:52 Urine, Clean Catch Streptococcus pneumoniae Antigen (M - Final 10/12/21 23:20 Nasal Secretion SARS-CoV-2 Antigen (Rapid) - Final D/C Instructions Discharge Diet: Low fat / Low cholesterol Discharge Activity: Return to Normal Activity Weight Bearing Status: Weight bearing as tolerated Call your doctor if you observe: Fever of 101 or Higher, Shortness of breath, Dizziness, Swelling in the ankles, Chest pain and Increased palpitations (ir regular heartbeat) Meaningful Use Info Meaningful Use Diagnoses (Choose all that apply): None applicable Discharge Plan Admission Admit Date/Time: 10/12/21 23:08 Primary Reason for Your Visit: debililty, mechanical fall, pneumonia Attending Provider: Misti Cintron Primary Care Provider: Silvano Sandy Chi Instructions Patient Instructions: ED Pneumonia (Adult) Discharge Orders/Prescriptions Prescriptions: New levofloxacin 500 mg tablet 500 mg PO DAILY Qty: 5 RF: 0 Continued pravastatin 40 mg tablet 40 mg PO QHS RF: 0 glimepiride 1 mg tablet 4 mg PO BID RF: 0 tamsulosin 0.4 mg capsule 0.4 mg PO DAILY RF: 0 Trelegy Ellipta 200-62.5-25 mcg blister with device 1 inh inhalation DAILY RF: 0 metformin 500 mg tablet 500 mg PO BID RF: 0 albuterol sulfate [Ventolin HFA] 1 INHALER inhaler 2 puff inhalation Q4H PRN PRN (Reason: Sob &/Or Wheezing) RF: 0 budesonide-formoterol [Symbicort] 160-4.5 mcg/actuation HFA aerosol inhaler 2 inh INHALATION DAILY PRN (Reason: copd) RF: 0 carvedilol 6.25 mg tablet 6.25 mg PO BID RF: 0 Entresto 49-51 mg tablet 1 tab PO BID RF: 0 furosemide 40 mg tablet 40 mg PO DAILY Qty: 90 RF: 3 Entresto 49-51 mg tablet See Rx Instructions .ROUTE .COMPLEX Qty: 180 RF: 3 Referrals / Follow Up: Silvano Sandy Chi, MD [Primary Care Provider] - Within 2 Weeks Disposition Disposition (needs filled in before D/C Order can be placed): Home, Self Care Charges/Coding Visit Charges Inpatient E&M: 51998 Disch Hosp
[2021-10-14 12:27] VITALS: O2SAT 83; O2SAT 87; O2SAT 89; O2SAT 91
== END 2021-10-14 14:31 | disposition home or self-care (01) | DRG 197 ==
LOC: ED 22:52 → MS3 23:27
PROVIDERS: Admitting Provider Hospitalist; Emergency Provider Emergency Medicine; PCP Family Medicine Geriatric Medicine; Visit Provider Student in an Organized Health Care Education/Training Program
DX: J84.9 Interstitial pulmonary disease, unspecified (principal); J44.0 Chronic obstructive pulmonary disease with (acute) lower respiratory infection; I13.0 Hypertensive heart and chronic kidney disease with heart failure and stage 1 through stage 4 chronic kidney disease, or unspecified chronic kidney disease; N17.9 Acute kidney failure, unspecified; I50.22 Chronic systolic (congestive) heart failure; J96.11 Chronic respiratory failure with hypoxia; E11.21 Type 2 diabetes mellitus with diabetic nephropathy; E11.65 Type 2 diabetes mellitus with hyperglycemia; E11.22 Type 2 diabetes mellitus with diabetic chronic kidney disease; N18.32 Chronic kidney disease, stage 3b; E78.5 Hyperlipidemia, unspecified; E87.6 Hypokalemia; E86.0 Dehydration; R53.81 Other malaise; R53.1 Weakness; Z99.81 Dependence on supplemental oxygen; Z79.84 Long term (current) use of oral hypoglycemic drugs; Z79.899 Other long term (current) drug therapy; Z87.891 Personal history of nicotine dependence
CPT/HCPCS: 36415; 71045; 80048; 81001; 82962; 85025; 85027; 87426; 87449; 93005; 94640; 97110; 97162; 97165; 97530; 99251; 99285; 99406; J7030; A4216; G0463; J0696

== ENCOUNTER 2021-11-14 16:09 | Outpatient (CLI) | payer MEDICARE, SELFPAY ==
--- NOTE | 2021-11-14 16:13 | CT_ITS ---
STUDY: LOW DOSE CT LUNG CANCER SCREENING REASON FOR EXAM: Male, 76 years old. One third pack per day x40 years, has quit for 9 months RADIATION DOSAGE (If Supplied By Facility): CTDIvol = ( 2.39 ) mGy, DLP = ( 80.11 ) mGycm TECHNIQUE: No contrast was administered. Low dose technique was utilized (average mAS-38 and kVp 120). 1.25 mm axial source images with a slice interval of 1.25-mm were reconstructed in lung windows. 2.5 mm axial source images with a slice interval of 2.5-mm were reconstructed in lung windows. 5.0 mm axial source images with a slice interval of 5.0-mm were reconstructed in soft tissue windows. Nodule measured using lung windows on PACS and/or independent workstation with automated measurement of minimum and maximum diameter. Nodule measurement reported as average diameter rounded to the nearest whole number. Growth is defined as an increase ins size of greater than 1.5 mm. COMPARISON: None. FINDINGS: The lung windows show significant underlying emphysema with bleb formation and architectural distortion particularly in the right apex. There is no suspicious noncalcified mass or nodule. There is a free-flowing left pleural effusion and bibasilar atelectasis. No organized infiltrate. The soft tissue windows show a normal-appearing thyroid gland. No suspicious adenopathy. Peripheral calcifications noted in the thoracic aorta without aneurysm. There are calcified coronary vessels. Limited cuts of the upper abdomen show small hiatal hernia. Bony structures show degenerative change CT/Low Dose CT Lung Screening IMPRESSION: Lung-RADS category 2 - Continue annual screening with LDCT in 12 months. IMPORTANT NOTES FOR USE: ACR Lung-RADS Version 1.1 Assessment Categories Release Date: 2018 Category: Coded 0-4 bases on nodule(s) with highest degree of suspicion. Negative screen is defined as categories 1 and 2; a positive screen is defined as categories 3 and 4. Category 3 and 4A nodules that are unchanged on interval CT should be coded as category 2, and individuals returned to screening in 12 months. Category 4X: Category 3 or 4 nodules with additional imaging findings that increase the suspicion of lung cancer, such as spiculation, GGN that doubles in size in 1 year, enlarged lymph notes, etc. Category Modifiers: S (significant finding unrelated to lung cancer) Electronically Signed: Kurt Willis MD at 10:11 EDT ,
== END 2021-11-14 23:59 | disposition home or self-care (01) ==
PROVIDERS: PCP Family Medicine Geriatric Medicine; Referring Provider Nurse Practitioner Acute Care; Visit Provider Nurse Practitioner Acute Care
DX: Z87.891 Personal history of nicotine dependence (principal)
CPT/HCPCS: 71271

== ENCOUNTER → 2022-01-31 | Outpatient (CLI) | payer MEDICARE, SELFPAY ==
[2022-01-31 11:51] LABS: Absolute Lymphocyte Count 1.55 X10^3/uL (0.83-4.51); Absolute Neutrophil Count 6.2 X10^3/uL (2.0-7.7); Basophil# 0.06 X10^3/uL; Basophil% 0.7 % (0-1); Eosinophil# 0.33 X10^3/uL; Eosinophils% 3.7 % (0-5); Hematocrit 34.7 % (40-54); Hemoglobin 11.2 g/dL (13.0-16.5); Lymphocyte # 1.55 X10^3/ul (0.83-4.51); Lymphocyte % 17.4 % (19-41); Mean Corp Hgb Conc 32.3 g/dL (32-36); Mean Corpuscular Hgb 31.9 pg (27.0-32.0); Mean Corpuscular Volume 98.9 fL (80-94); Mean Platelet Vol. 10.6 fl (6.2-12.0); Monocyte% 7.9 % (0-10); NRBC Flagged by Analyzer 0 % (0-5); Neutrophil % 69.7 % (47-70); Platelet Count 275 K/mm3 (150-450); RBC Distribution Width CV 12.1 % (11.6-14.6); RBC Distribution Width SD 44.1 fl (35.1-43.9); Red Blood Count 3.51 M/mm3 (4.6-6.2); White Blood Count 8.9 K/mm3 (4.4-11.0)
[2022-01-31 12:45] LABS: ALB/GLOB Ratio 0.9 RATIO (0.9-2.4); AST(SGOT) 10 U/L (15-37); Alanine Aminotransfer ALT/SGPT 17 U/L (16-61); Albumin, Serum 3.6 g/dL (3.2-5.0); Alkaline Phosphatase 124 U/L (45-117); Anion Gap 6 (5-15); BUN 23 mg/dL (7-18); BUN/Creat Ratio 12.1 RATIO (10-20); Calcium,Total 8.7 mg/dL (8.5-10.1); Chloride 101 mmol/L (98-107); Cholesterol 114 mg/dL (200); EST Glomerular Filtration Rate 37 mL/min (>60); Est Glom Filt Rate - Afr Amer 45 mL/min (>60); Globulin 4.2 g/dL (2.2-4.2); Glucose 199 mg/dL (74-106); High Density Lipoprotein 35 mg/dL; Potassium 3.8 mmol/L (3.5-5.1); Protein, Total 7.8 g/dL (6.4-8.2); Sodium Level 137 mmol/L (136-145); Thyroid Stim Hormone (TSH) 1.04 uIU/mL (0.358-3.74); Triglycerides 182 mg/dL; Very Low Density Lipoprotein 36 mg/dL (5-40)
== END | disposition home or self-care (01) ==
LOC: POLAB3 10:15
PROVIDERS: PCP Family Medicine Geriatric Medicine; Visit Provider Family Medicine Geriatric Medicine
DX: E11.9 Type 2 diabetes mellitus without complications (principal); E55.9 Vitamin D deficiency, unspecified; E78.5 Hyperlipidemia, unspecified; I10 Essential (primary) hypertension
CPT/HCPCS: 36415; 80053; 80061; 82306; 84443; 85025

== ENCOUNTER → 2022-08-05 | Outpatient (CLI) | payer MEDICARE, SELFPAY ==
[2022-08-05 13:10] LABS: Absolute Lymphocyte Count 1.28 X10^3/uL (0.83-4.51); Absolute Neutrophil Count 4.8 X10^3/uL (2.0-7.7); Basophil# 0.04 X10^3/uL; Basophil% 0.6 % (0-1); Eosinophil# 0.22 X10^3/uL; Eosinophils% 3.2 % (0-5); Hematocrit 39.2 % (40-54); Hemoglobin 12.6 g/dL (13.0-16.5); Lymphocyte # 1.28 X10^3/ul (0.83-4.51); Lymphocyte % 18.6 % (19-41); Mean Corp Hgb Conc 32.1 g/dL (32-36); Mean Corpuscular Hgb 32.7 pg (27.0-32.0); Mean Corpuscular Volume 101.8 fL (80-94); Mean Platelet Vol. 11.2 fl (6.2-12.0); Monocyte# 0.58 X10^3/uL; Monocyte% 8.4 % (0-10); NRBC Flagged by Analyzer 0 % (0-5); Neutrophil # 4.75 X10^3/uL (2.7-7.7); Neutrophil % 68.8 % (47-70); Platelet Count 242 K/mm3 (150-450); RBC Distribution Width CV 13.1 % (11.6-14.6); RBC Distribution Width SD 49.5 fl (35.1-43.9); Red Blood Count 3.85 M/mm3 (4.6-6.2); White Blood Count 6.9 K/mm3 (4.4-11.0)
[2022-08-05 13:25] LABS: Vitamin D,25 Hydroxy 9.2 ng/mL
[2022-08-05 13:39] LABS: AST(SGOT) 9 U/L (15-37); Alanine Aminotransfer ALT/SGPT 16 U/L (16-61); Albumin, Serum 3.7 g/dL (3.2-5.0); Alkaline Phosphatase 101 U/L (45-117); Anion Gap 7 (5-15); BUN 14 mg/dL (7-18); BUN/Creat Ratio 8.3 RATIO (10-20); Calcium,Total 8.7 mg/dL (8.5-10.1); Chloride 104 mmol/L (98-107); Cholesterol 99 mg/dL (200); Creatinine, Serum 1.69 mg/dL (0.70-1.30); EST Glomerular Filtration Rate 42 mL/min (>60); Est Glom Filt Rate - Afr Amer 51 mL/min (>60); Globulin 3.8 g/dL (2.2-4.2); Glucose 130 mg/dL (74-106); High Density Lipoprotein 32 mg/dL; Potassium 4.2 mmol/L (3.5-5.1); Protein, Total 7.5 g/dL (6.4-8.2); Sodium Level 139 mmol/L (136-145); Thyroid Stim Hormone (TSH) 1.49 uIU/mL (0.358-3.74); Triglycerides 116 mg/dL; Very Low Density Lipoprotein 23 mg/dL (5-40)
== END | disposition home or self-care (01) ==
LOC: POLAB3 10:16
PROVIDERS: PCP Family Medicine Geriatric Medicine; Visit Provider Family Medicine Geriatric Medicine
DX: E11.65 Type 2 diabetes mellitus with hyperglycemia (principal); I10 Essential (primary) hypertension; E55.9 Vitamin D deficiency, unspecified; E78.5 Hyperlipidemia, unspecified
CPT/HCPCS: 36415; 80053; 80061; 82306; 84443; 85025

== ENCOUNTER → 2022-10-08 | Outpatient (CLI) | payer MEDICARE, SELFPAY ==
--- NOTE | 2022-10-08 12:24 | ECHOD_ITS ---
Reason For Study: CHF Procedure This was a 2D Doppler, Color Flow transthoracic echocardiogram. Exam performed in department. Left Ventricle Normal LV size. Left ventricular systolic function is normal. The estimated ejection fraction is 55 %. Stage 1 diastolic dysfunction. No regional wall motion abnormalities noted. Right Ventricle Normal RV size. Normal systolic function. Atria Normal left atrium. Normal right atrium. Mitral Valve Normal mitral valve. Tricuspid Valve Normal tricuspid valve. Aortic Valve Trisinus/trileaflet aortic valve. Pulmonic Valve Normal pulmonic valve. Great Vessels Normal aortic root. The pulmonary artery is normal size. Normal inferior vena cava. Pericardium/Pleural No pericardial effusion. MMode/2D Measurements & Calculations LVIDd: 5.3 cm IVSd: 0.83 cm LA dimension: 4.2 cm LVIDs: 4.3 cm LVPWd: 0.94 cm RVDd: 3.3 cm FS: 18.5 % LAV(MOD-bp): 79.5 ml LVAd ap4: 33.4 cm2 SV(MOD-sp4): 36.9 ml LAV(MOD-bp) Indexed: 38.6 ml/m2 LVLd ap4: 8.8 cm LAV(MOD-sp2): 74.2 ml EDV(MOD-sp4): 102.6 ml LAV(MOD-sp4): 79.3 ml EDV(sp4-el): 108.3 ml LVAs ap4: 23.9 cm2 LVLs ap4: 8.0 cm ESV(MOD-sp4): 65.7 ml ESV(sp4-el): 60.8 ml EF(MOD-sp4): 36.0 % EF(sp4-el): 43.9 % SV(sp4-el): 47.6 ml LA A4 area: 24.0 cm2 RA A4 area: 20.0 cm2 Time Measurements MV dec time: 0.19 sec Doppler Measurements & Calculations MV E max waqar: 58.2 cm/sec Lat Peak E' Waqar: 12.7 cm/sec Med Peak E' Waqar: 10.0 cm/sec MV A max waqar: 83.1 cm/sec E/E' lat: 4.6 E/E' med: 5.8 MV E/A: 0.70 MV V2 max: 84.8 cm/sec Ao V2 max: 104.9 cm/sec MV max P.9 mmHg MV dec slope: 310.3 cm/sec2 Ao max P.4 mmHg MV V2 mean: 44.5 cm/sec MV mean P.93 mmHg MV V2 VTI: 17.6 cm LV V1 max: 57.8 cm/sec MR max waqar: 347.9 cm/sec PA V2 max: 72.8 cm/sec LV V1 max P.3 mmHg MR max P.4 mmHg ECHO/Echo Complete Interpretation Summary Normal LV size. Left ventricular systolic function is normal. The estimated ejection fraction is 55 %. Stage 1 diastolic dysfunction. Structurally normal valves. Compared to previous study, the left ventricular sy stolic function has improved.. Ordering Physician: Karson Martinez Referring Physician: Silvano Sandy Chi Performed By: Mendez Presley RCS
== END | disposition home or self-care (01) ==
LOC: CVS 12:24
PROVIDERS: PCP Family Medicine Geriatric Medicine; Visit Provider Internal Medicine Cardiovascular Disease
DX: I50.22 Chronic systolic (congestive) heart failure (principal); I42.0 Dilated cardiomyopathy
CPT/HCPCS: 93306

== ENCOUNTER → 2022-11-15 | Outpatient (CLI) | payer MEDICARE, SELFPAY ==
--- NOTE | 2022-11-15 12:59 | CT_ITS ---
HISTORY: Smoker greater than 40 pack years. TECHNIQUE: Helically acquired images were obtained of the chest without contrast. A radiation dose optimization technique was used for this scan. 920 images. COMPARISON: 11/14/2021. FINDINGS: LARGE AIRWAYS: Patent. LUNGS: Advanced emphysema. Mild bronchiectasis, bronchial wall thickening, and groundglass opacities in the right middle lobe. Mild opacity in the lingula. Patchy, linear, and groundglass opacities in the bilateral lower lobes with bronchiectasis and bronchial wall thickening. 1.2 cm irregular left lower lobe nodule, new from prior. PLEURA: No pneumothorax or significant pleural effusion. HEART/PERICARDIUM: Heart within normal limits in size with coronary artery calcification. Chronic mild pericardial effusion. VESSELS: Thoracic aorta nondilated. MEDIASTINUM/JUAN ANTONIO: Several small mediastinal lymph nodes again seen. UPPER ABDOMEN: Atrophic kidneys with a staghorn type calculus on the right. Colonic diverticulosis noted. BONES: Osteopenia and degenerative change. CT/Low Dose CT Lung Screening IMPRESSION: Advanced emphysema with bronchiectasis, bronchial wall thickening, and bilateral middle and lower lobe opacities concerning for infection or inflammation with a new 1.2 cm left lower lobe nodular opacity. Lungs RADS category 4B: For large nodules that develop on an annual repeat screening CT, a [address] may be recommended to address potentially infectious or inflammatory conditions. Chronic mild pericardial effusion. Resolution of left pleural effusion. Electronically Signed: Erika Carrizales MD at 13:47 EDT ,
== END | disposition home or self-care (01) ==
LOC: CT 12:58
PROVIDERS: PCP Family Medicine Geriatric Medicine; Visit Provider Nurse Practitioner Acute Care
DX: Z12.2 Encounter for screening for malignant neoplasm of respiratory organs (principal); F17.210 Nicotine dependence, cigarettes, uncomplicated
CPT/HCPCS: 71271

== ENCOUNTER → 2022-12-10 | Outpatient (CLI) | payer MEDICARE, SELFPAY ==
--- NOTE | 2022-12-10 10:00 | PET_ITS ---
EXAMINATION: FDG PET-CT INDICATIONS: A 77-year-old male with history of pulmonary nodularity. COMPARISON EXAMINATION: CT of the chest report dated 11/15/22 INDEX LESION SIZE SUV INTERPRETATION Left lower lung field, left lower lobe, lingula 1.0 (max) Quantitative criteria for viable neoplasm are not fulfilled, sequential radiologic investigation recommended NON-INDEX LESION SIZE SUV INTERPRETATION Left axilla 1.2 (max) Quantitative criteria for viable neoplasm are not fulfilled TECHNIQUE: Following the intravenous administration of 12.05 mCi of F-18 deoxyglucose via the right antecubital fossa, multiplanar image acquisitions of the neck, chest, abdomen and pelvis to level of mid thigh, obtained at one hour post radiopharmaceutical administration contemporaneously interpreted with the current CT of the neck, chest, abdomen and pelvis, to level of mid thigh, dated 12/10/[address] of the chest report dated 11/15/22 reveals: BLOOD GLUCOSE LEVEL:?? 120 mg/dl?HEIGHT:?69 inches?WEIGHT: 190 lbs. FINDINGS: Head/Neck: There is no evidence of abnormal increased glucose metabolism in the pharyngeal mucosal space, parapharyngeal space, bilateral-lateral and anterior neck, hypopharynx and distribution of the laryngeal structures. The visualized portion of the cerebral cortical-subcortical structures demonstrate symmetric and preserved glucose metabolism. CHEST: Subtle increased glucose metabolism is identified in both the left lower anterolateral lung zone, lingula and left lower lobe. The calculated maximal standard uptake value is 1.0. Quantitative criteria for viable neoplasm are not fulfilled. Increased tracer uptake is noted in the left axilla with a calculated maximal standard uptake value of 1.2. Quantitative criteria for viable neoplasm are not fulfilled. Pertinent chest CT findings are as follows. Pleural thickening noted in the right posterior hemithorax reveals no evidence of quantitatively significant increased FDG uptake. Additional left and visualized right axillary soft tissue densities reveal no evidence of quantitatively significant increased glucose metabolism. Abdomen/Pelvis: Normal physiologic distribution of the radiopharmaceutical is apparent in the hepatic (3.9) and splenic parenchyma, both renal units, bladder and visualized intestinal tract. Diffuse radiopharmaceutical concentration is noted in all four quadrants of the abdomen and pelvis. Prominent uptake is noted both in the descending thoracic, as well as abdominal aorta, commensurate with activated leukocytes associated with atherosclerotic plaque formation. Pertinent abdomen and pelvis CT findings are as follows. Calcification is identified within the urinary bladder. Calcification is noted within a prominent-sized prostate gland. Colonic diverticulosis is noted without evidence of diverticulitis. Bilateral inguinal soft tissue densities are non-glucose avid. Right and left fat containing inguinal hernias are demonstrated. There is atherosclerotic calcification defined in the abdominal aorta without evidence of dilatation-aneurysm formation. Pelvic arterial calcification is observed. Cholelithiasis is demonstrated. There are calcifications noted in the bilateral renal units. There is calcification within the pancreatic body and tail. Skeletal: Degenerative changes are noted in the cervical, thoracic and lumbar spine without evidence of increased radiopharmaceutical concentration. There are no well-defined sclerotic-lytic changes manifest on review of the appendicular-axial skeletal structures. PET/PET/CT Tumor Base -Thigh Init IMPRESSION: 1. NEGATIVE EXAMINATION. There is no definitive quantitative scintigraphic evidence of recurrent/viable neoplasm. 2. Enhanced radiopharmaceutical concentration manifest in the left lower lung field, left lower lobe and lingula do not fulfill quantitative criteria for malignant transformation. 3. Metabolic and/or anatomic stability may be ensured in the left lower lung field abnormality with repeat FDG PET-CT and/or CT of the thorax in 6-9 months if clinically indicated. (Xiu, Journal of Nuclear Medicine 45:88, P2004 [place], Seminars in Thoracic and Cardiovascular Surgery 14:292, 2002). 4. The left axillary hypermetabolic foci do not fulfill quantitative criteria for viable neoplasia. Electronic Signature Trent Chun D.O. Accurate Quantification of SUVs for this report are calculated using the exclusive [employer]. ([place]. Patent No. [id number] B2 [phone] [place] patent [phone]). Standardization and correction of the FDG SUV metric via [employer] technology allow for vendor non-specific objective quantitative examination comparison and optimization of the sensitivity and specificity of the FDG PET-CT examination. Electronically Signed: Trent Chun, at 14:35 EDT ,
== END | disposition home or self-care (01) ==
PROVIDERS: PCP Family Medicine Geriatric Medicine; Referring Provider Internal Medicine Critical Care Medicine; Visit Provider Internal Medicine Critical Care Medicine
DX: R91.1 Solitary pulmonary nodule (principal)
CPT/HCPCS: 78815; A9552

== ENCOUNTER → 2023-06-30 | Outpatient (CLI) | payer MEDICARE, SELFPAY ==
--- NOTE | 2023-06-30 12:18 | CT_ITS ---
INDICATION: follow up LLL nodule - PET negative EXAMINATION: CT CHEST WITHOUT CONTRAST - CT Chest W/O Contrast Injection TECHNIQUE: Helically acquired images were obtained of the chest. A radiation dose optimization technique was used for this scan. IV Contrast dosage and agent: None. COMPARISON: 11/15/2022 FINDINGS: LUNGS, PLEURA AND LARGE AIRWAYS: Moderate emphysema. Alveolar density in the right lower lobe consistent with right lower lobe pneumonia. Improved of the lingular atelectasis. Decreased bulk to the 1.2 cm nodular density in the left lower lobe consistent with improving scar. No new noncalcified nodule or mass. No pleural effusion or thickening. No pneumothorax. THYROID: 2 cm nodule right lobe of thyroid gland and correlation with thyroid ultrasound is recommended. HEART AND PERICARDIUM: Cardiomegaly. Small pericardial effusion. CORONARY ARTERIES: Coronary artery calcification is seen. VESSELS: Thoracic aorta is not dilated. MEDIASTINUM AND JUAN ANTONIO: No mediastinal or hilar adenopathy. Esophagus is unremarkable. No hiatal hernia. UPPER ABDOMEN: Multiple stones in the right kidney. BONES: No suspicious lytic or blastic abnormality. CT/Chest without Contrast IMPRESSION: 1. Moderate emphysema. 2. Interval development of right lower lobe pneumonia. 3. Improved appearance of 1.2 cm left lower lobe nodule likely consistent with a scar. Follow-up CT is recommended in 6 months to document stability or resolution. 4. 2 cm nodule right lobe of the thyroid gland and correlation with thyroid ultrasound is recommended. Electronically Signed: Trent Estevez MD at 23:48 EST ,
== END | disposition home or self-care (01) ==
LOC: CT 12:17
PROVIDERS: PCP Family Medicine Geriatric Medicine; Referring Provider Internal Medicine Critical Care Medicine; Visit Provider Internal Medicine Critical Care Medicine
DX: R91.1 Solitary pulmonary nodule (principal)
CPT/HCPCS: 71250

== ENCOUNTER 2023-07-23 00:49 | Emergency (ER) | payer MEDICARE, SELFPAY ==
[2023-07-23 00:54] VITALS: PULSE 86; RESP 22; TEMP 36.3; O2SAT 95; BMI 24.0
[2023-07-23 01:21] VITALS: PULSE 80; RESP 18
[2023-07-23] MEDS: MethylPREDNISolone 125 MG/2 ML Vial IV (01:21)
[2023-07-23] MEDS: Ipratropium/Albuterol Sulfate 3 ML AMPUL.NEB INHALATION (01:21)
[2023-07-23 01:35] LABS: Basophil# 0.06 X10^3/uL; Basophil% 0.6 % (0-1); Eosinophil# 0.47 X10^3/uL; Hematocrit 34.8 % (40-54); Hemoglobin 10.8 g/dL (13.0-16.5); Lymphocyte % 10.6 % (19-41); Mean Corpuscular Volume 103.3 fL (80-94); Mean Platelet Vol. 10.8 fl (6.2-12.0); Monocyte# 0.84 X10^3/uL; Monocyte% 8.9 % (0-10); NRBC Flagged by Analyzer 0 % (0-5); Neutrophil # 7.01 X10^3/uL (2.7-7.7); Neutrophil % 74.2 % (47-70); Platelet Count 211 K/mm3 (150-450); RBC Distribution Width CV 12.9 % (11.6-14.6); RBC Distribution Width SD 48.2 fl (35.1-43.9); Red Blood Count 3.37 M/mm3 (4.6-6.2); White Blood Count 9.5 K/mm3 (4.4-11.0)
--- NOTE | 2023-07-23 01:45 | RAD_ITS ---
INDICATION: cough EXAMINATION/TECHNIQUE: X-RAY - XR Chest 2 Views COMPARISON: 10/12/2021. FINDINGS: LINES/DEVICES: None. LUNGS: Bilateral lower lobe infiltrates. No evidence of a pleural effusion or a pneumothorax. MEDIASTINUM AND CARDIOVASCULAR STRUCTURES: Cardiac silhouette is normal in size and contour. Mediastinum is unremarkable. BONES AND SOFT TISSUES: No acute abnormality. RAD/Chest PA and Lateral IMPRESSION: Bilateral lower lobe infiltrates consistent with pneumonia. Electronically Signed: Chester Stauffer DO at 2:47 EST ,
[2023-07-23 02:29] LABS: Anion Gap 3 (5-15); BUN 19 mg/dL (7-18); BUN/Creat Ratio 11.4 RATIO (10-20); Calcium,Total 8.4 mg/dL (8.5-10.1); Chloride 108 mmol/L (98-107); Creatinine, Serum 1.67 mg/dL (0.70-1.30); EST Glomerular Filtration Rate 43 mL/min (>60); Est Glom Filt Rate - Afr Amer 52 mL/min (>60); Estimated Creatinine Clearance 39.45 ml/min; Glucose 173 mg/dL (74-106); Magnesium 1.6 mg/dL (1.6-2.6); Potassium 4.1 mmol/L (3.5-5.1); Sodium Level 139 mmol/L (136-145); Troponin-I HS 8 pg/mL (3.0-78.0)
--- NOTE | 2023-07-23 02:29 | EX.ED.DYSGE1 ---
HPI History of Present Illness Chief Complaint: Shortness of Breath Informant: patient and EMS Narrative Narrative: Patient is a 78-year-old male with past medical history of COPD who wears 3 L of nasal cannula oxygen 10/03. He also has history of hypertension hyperlipidemia and CHF. Patient states he was sitting at home when he developed midsternal chest discomfort and shortness of breath sensation. He states he will get this occasionally and he is able to cough up some phlegm and then he feels better. He states that he was not able to do that this evening and secondary to his persistent shortness of breath without improvement of symptoms EMS was called to bring him in for evaluation [facility] Medical History BPH (benign prostatic hyperplasia) Chronic HFrEF (heart failure with reduced ejection fraction) Chronic kidney disease (CKD) Chronic respiratory failure with hypoxia, on home oxygen therapy COPD (chronic obstructive pulmonary disease) Essential hypertension Hyperlipidemia Hypoxia Non-ischemic cardiomyopathy Renal calculi Smoking greater than 40 pack years Type 2 diabetes mellitus Home Medications pravastatin 40 mg tablet 40 mg PO QHS cholesterol 03/20/21 [History Last Taken 10/11/21] tamsulosin 0.4 mg capsule 0.4 mg PO DAILY bph 03/20/21 [History Last Taken 10/11/21] metformin 500 mg tablet 500 mg PO BID diabetes 08/15/21 [History Last Taken 10/13/21] albuterol sulfate 90 mcg/actuation aerosol inhaler (Ventolin HFA) 2 puff inhalation Q4H PRN PRN Sob &/Or Wheezing #8.5 grams 07/08/22 [Rx Last Taken Unknown] fluticasone fur. 100 mcg-umeclid 62.5 mcg-vilant 25 mcg inhalat.powder (Trelegy Ellipta) 1 inh inhalation DAILY 09/27/22 [History Last Taken Unknown] glimepiride 4 mg tablet 4 mg PO BID 09/27/22 [History Last Taken Unknown] sacubitril 49 mg-valsartan 51 mg tablet (Entresto) See Rx Instructions .Route .COMPLEX #180 tabs 12/02/22 [Rx Last Taken Unknown] carvedilol 12.5 mg tablet 12.5 mg PO BID HTN #180 tabs 02/13/23 [Rx Last Taken Unknown] azithromycin 250 mg tablet See Rx Instructions PO .COMPLEX 10 days #12 tabs 07/23/23 [Rx Last Taken Unknown] doxycycline hyclate 100 mg capsule 100 mg PO BID 10 days #20 caps 07/23/23 [Rx Last Taken Unknown] prednisone 20 mg tablet 20 mg PO DAILY 5 days #5 tabs 07/23/23 [Rx Last Taken Unknown] Allergy/AdvReac Type Severity Reaction Status Date / Time Penicillins Allergy Swelling Verified 07/23/23 00:54 Surgical History H/O tooth extraction Social History Smoking Status: Former smoker Tobacco: How many years used: 30 how long ago did patient quit smoking: quit 04/2021 alcohol intake: never substance use type: does not use caffeine: Yes (1-2 times per week) Type: coffee ROS ROS ED Constitutional Constitutional ED: Denies chills or fever(s) ENT ENT ED: Denies sore throat Cardiovascular Cardiovascular: Denies chest pain Respiratory/Chest Respiratory/Chest: Reports cough and dyspnea Gastrointestinal Gastrointestinal: Denies abdominal pain, diarrhea, nausea or vomiting Genitourinary Genitourinary ED: Denies dysuria Musculoskeletal Musculoskeletal: Denies myalgias Integumentary Denies rash Neurologic Neurologic: Denies headache(s) Hematologic/Lymphatic Hematologic/Lymphatic: Denies easy bleeding or easy bruising EXAM Physical Exam Const Vital Signs: 07/23/23 00:54 07/23/23 00:57 07/23/23 01:21 Temperature 97.3 F L Temperature Source Temporal Pulse Rate 86 80 Respiratory Rate 22 H 18 Respiratory Effort Short of Breath Labored Respiratory Depth Normal Respiratory Pattern Tachypnea Normal Blood Pressure Blood Pressure Mean Pulse Ox 95 Oxygen Delivery Method Nasal Cannula Nasal Cannula Oxygen Flow Rate (L/min) 3 07/23/23 02:40 Temperature Temperature Source Pulse Rate 83 Respiratory Rate 18 Respiratory Effort Respiratory Depth Respiratory Pattern Blood Pressure 149/80 H Blood Pressure Mean 103 Pulse Ox 98 Oxygen Delivery Method Nasal Cannula Oxygen Flow Rate (L/min) 3 Positive well nourished and well developed General Appearance ED: well developed HEENT Reports moist mucous membranes HEENT Narrative: No tongue or lip swelling No airway edema or compromise No signs of infection noted in the posterior pharynx Eyes PERRL and EOMs intact bilaterally General Eye ED: Negative for scleral icterus Neck supple and no JVD Resp Resp Narrative: Patient has mild tachypnea on exam Breath sounds are diminished throughout with faint expiratory wheeze diffusely Cardio regular rate and regular rhythm Rate: other Other Details: Heart is regular rate and rhythm without murmurs rubs or gallops GI normal to inspection, nondistended, normoactive bowel sounds, non-tender, non-distended and no masses GI Narrative: No voluntary guarding or rigidity No pulsatile mass or fluid wave Auscultation: normoactive bowel sounds Palpation: soft Extremity normal to inspection Extremity Narrative: No asymmetric edema no pitting edema negative Homans' sign bilaterally Neuro oriented x3, CN's II-XII intact bilaterally and no sensory deficits noted Sensorium / Orientation: alert Motor Exam: strength 5/5 throughout Psych mental status grossly normal Skin no rashes or lesions noted MDM MDM MDM Narrative Medical decision making narrative: Patient presented to the ER slightly hypertensive but otherwise satting in the low to mid 90s on his normal 3 L. His report of mild chest discomfort and shortness of breath is concerning for acute coronary syndrome versus pneumonia versus congestive heart failure versus pneumothorax. Secondary to this a basic workup was obtained. EKG showed normal sinus rhythm with occasional PVCs. Labs showed a normal initial and delta troponin going against acute coronary syndrome. Chest x-ray however showed hazy opacities concerning for pneumonia. Patient is afebrile he does not have leukocytosis and he is not hypotensive going against systemic infection or sepsis. Also he is not in respiratory distress and he is satting well on his normal 3 L. Therefore this time as he is not showing changes consistent with sepsis or requiring increased oxygen from his baseline I do not feel there is need for admission to the hospital. Patient will be started on doxycycline and azithromycin secondary to the pneumonia but as he is not septic or in respiratory distress or requiring a higher value of supplemental oxygen than his baseline he will be discharged home and can follow-up on an outpatient basis History & Record Review Discussion w/independent historian: Patient Lab Data Attestation: I reviewed the patient's lab results. Labs: Laboratory Results - last 24 hr 07/23/23 07/23/23 01:25 03:19 WBC 9.5 RBC 3.37 L Hgb 10.8 L Hct 34.8 L MCV 103.3 H MCH 32.0 MCHC 31.0 L RDW Std Deviation 48.2 H RDW Coeff of Naty 12.9 Plt Count 211 MPV 10.8 Immature Gran % (Auto) 0.700 Neut % (Auto) 74.2 H Lymph % (Auto) 10.6 L [place] % (Auto) 8.9 Eos % (Auto) 5.0 Baso % (Auto) 0.6 Absolute Neuts (auto) 7.0 Absolute Lymphs (auto) 1.00 Nucleated RBC % 0 Sodium 139 Potassium 4.1 Chloride 108 H Carbon Dioxide 28.0 Anion Gap 3 L BUN 19 H Creatinine 1.67 H Estim Creat Clear Calc 39.45 Est GFR (MDRD) Af Amer 52 L Est GFR (MDRD) Non-Af 43 L BUN/Creatinine Ratio 11.4 Glucose 173 H Calcium 8.4 L Magnesium 1.6 Troponin I High Sens 8 10 Radiography Diagnostic Testing: Clinical Impression(s) from Imaging Studies Chest X-Ray 07/23/23 01:45 IMPRESSION: Bilateral lower lobe infiltrates consistent with pneumonia. Electronically Signed: Chester Stauffer DO at 2:47 EST , 2 view chest x-ray as interpreted by the emergency medicine physician reveals hazy opacities in the bilateral lower lobes concerning for pneumonia Discharge Plan Triage Chief Complaint: Shortness of Breath ED Provider: Kalin Barton Dx/Rx/DC Orders Clinical Impression: Pneumonia, Essential hypertension, Hyperlipidemia, Acute exacerbation of chronic obstructive pulmonary disease Instructions: COPD: Wheezing and Chest Tightness, ED Pneumonia (Adult) Prescriptions: New prednisone 20 mg tablet 20 mg PO DAILY 5 Days Qty: 5 0RF doxycycline hyclate 100 mg capsule 100 mg PO BID 10 Days Qty: 20 0RF azithromycin 250 mg tablet See Rx Instructions .ROUTE .COMPLEX 10 Days Qty: 12 0RF Rx Instructions: For 250 mg dose pack: take 500 mg today (day 1), then 250 mg for 4 days (days 2-5) No Action pravastatin 40 mg tablet 40 mg PO QHS tamsulosin 0.4 mg capsule 0.4 mg PO DAILY Patient Comments: not taking as much because it makes me get up to pee too much metformin 500 mg tablet 500 mg PO BID albuterol sulfate [Ventolin HFA] 90 mcg/actuation HFA aerosol inhaler 2 puff inhalation Q4H PRN PRN (Reason: Sob &/Or Wheezing) Qty: 8.5 11RF glimepiride 4 mg tablet 4 mg PO BID Trelegy Ellipta 100-62.5-25 mcg blister with device 1 inh inhalation DAILY Entresto 49-51 mg tablet See Rx Instructions .ROUTE .COMPLEX Qty: 180 3RF Dose Instruction: TAKE 1 TABLET TWICE DAILY Rx Instructions: TAKE 1 TABLET TWICE DAILY carvedilol 12.5 mg tablet 12.5 mg PO BID Qty: 180 3RF Primary Care Provider: Silvano Sandy Chi Referrals: Silvano Sandy Chi, MD [Primary Care Provider] - Activity Restrictions/Additional Instructions: Please continue all of your home medications as previously directed by your doctor. Add the antibiotics and steroids to reduce inflammation and treat the pneumonia that your x-ray displayed in the ER. If you have any further concerns or worsening of symptoms please return to the ER for repeat evaluation Disposition Disposition: Home, Self Care
[2023-07-23 02:40] VITALS: BP 149/80; PULSE 83; RESP 18; O2SAT 98
[2023-07-23] MEDS: Doxycycline 100 MG CAPSULE PO (03:10)
[2023-07-23] MEDS: Azithromycin 250 MG Tablet 500 MG PO (03:10)
[2023-07-23 03:46] LABS: Troponin-I HS 10 pg/mL (3.0-78.0)
--- NOTE | 2023-07-23 04:03 | ED.RN ---
scheduled physicians ambulance transport home, ETA 0630.
[2023-07-23 06:40] VITALS: BP 146/86
== END 2023-07-23 06:40 | disposition home or self-care (01) ==
PROVIDERS: Emergency Provider Emergency Medicine; PCP Family Medicine Geriatric Medicine; Visit Provider Emergency Medicine
DX: J18.9 Pneumonia, unspecified organism (principal); J44.1 Chronic obstructive pulmonary disease with (acute) exacerbation; I42.8 Other cardiomyopathies; I50.22 Chronic systolic (congestive) heart failure; I13.0 Hypertensive heart and chronic kidney disease with heart failure and stage 1 through stage 4 chronic kidney disease, or unspecified chronic kidney disease; E11.22 Type 2 diabetes mellitus with diabetic chronic kidney disease; N18.9 Chronic kidney disease, unspecified; E78.5 Hyperlipidemia, unspecified; Z79.84 Long term (current) use of oral hypoglycemic drugs; Z79.899 Other long term (current) drug therapy; Z99.81 Dependence on supplemental oxygen; Z87.891 Personal history of nicotine dependence
CPT/HCPCS: 71046; 80048; 83735; 84484; 85025; 87428; 93005; 94640; 96374; 99285; A4216

== ENCOUNTER → 2023-08-07 | Outpatient (CLI) | payer MEDICARE, SELFPAY ==
[2023-08-07 12:35] LABS: Absolute Lymphocyte Count 1.22 X10^3/uL (0.83-4.51); Absolute Neutrophil Count 8.1 X10^3/uL (2.0-7.7); Basophil# 0.05 X10^3/uL; Basophil% 0.5 % (0-1); Eosinophil# 0.23 X10^3/uL; Eosinophils% 2.3 % (0-5); Hematocrit 36.7 % (40-54); Hemoglobin 11.4 g/dL (13.0-16.5); Lymphocyte # 1.22 X10^3/ul (0.83-4.51); Lymphocyte % 11.9 % (19-41); Mean Corp Hgb Conc 31.1 g/dL (32-36); Mean Corpuscular Volume 103.1 fL (80-94); Mean Platelet Vol. 11.4 fl (6.2-12.0); Monocyte# 0.56 X10^3/uL; Monocyte% 5.5 % (0-10); NRBC Flagged by Analyzer 0 % (0-5); Neutrophil # 8.11 X10^3/uL (2.7-7.7); Neutrophil % 79.3 % (47-70); Platelet Count 229 K/mm3 (150-450); RBC Distribution Width CV 12.8 % (11.6-14.6); RBC Distribution Width SD 49.3 fl (35.1-43.9); Red Blood Count 3.56 M/mm3 (4.6-6.2); White Blood Count 10.2 K/mm3 (4.4-11.0)
[2023-08-07 12:55] LABS: Vitamin D,25 Hydroxy 16.4 ng/mL
[2023-08-07 13:00] LABS: ALB/GLOB Ratio 0.8 RATIO (0.9-2.4); AST(SGOT) 7 U/L (15-37); Alanine Aminotransfer ALT/SGPT 10 U/L (16-61); Albumin, Serum 3.1 g/dL (3.2-5.0); Alkaline Phosphatase 97 U/L (45-117); Anion Gap 7 (5-15); BUN 20 mg/dL (7-18); BUN/Creat Ratio 10.4 RATIO (10-20); Chloride 109 mmol/L (98-107); Cholesterol 77 mg/dL (200); Creatinine, Serum 1.93 mg/dL (0.70-1.30); EST Glomerular Filtration Rate 36 mL/min (>60); Est Glom Filt Rate - Afr Amer 44 mL/min (>60); Glucose 138 mg/dL (74-106); Hemoglobin A1c 6.1 % (3.8-5.6); High Density Lipoprotein 33 mg/dL; Potassium 3.5 mmol/L (3.5-5.1); Protein, Total 7.1 g/dL (6.4-8.2); Sodium Level 143 mmol/L (136-145); Triglycerides 67 mg/dL; Very Low Density Lipoprotein 13 mg/dL (5-40)
== END | disposition home or self-care (01) ==
LOC: LAB 11:20
PROVIDERS: PCP Family Medicine Geriatric Medicine; Referring Provider Family Medicine Geriatric Medicine; Visit Provider Family Medicine Geriatric Medicine
DX: I10 Essential (primary) hypertension (principal); E11.65 Type 2 diabetes mellitus with hyperglycemia; E55.9 Vitamin D deficiency, unspecified
CPT/HCPCS: 36415; 80053; 80061; 82306; 83036; 84443; 85025

== ENCOUNTER 2023-08-10 06:24 | Emergency (ER) | payer MEDICARE, SELFPAY ==
[2023-08-10 06:25] VITALS: BP 158/80; PULSE 79; RESP 18; TEMP 36.6; O2SAT 98; BMI 22.9
[2023-08-10 06:32] VITALS: BP 158/80; PULSE 78; RESP 20; TEMP 36.6; O2SAT 98
[2023-08-10 06:41] VITALS: BP 118/62; BP 146/68; BP 165/72; PULSE 68; PULSE 76; PULSE 85
[2023-08-10] MEDS: 0.9% Normal Saline (1000mL) 1,000 ML 999 ML IV (06:58)
--- NOTE | 2023-08-10 07:01 | EX.ED.DYSGE1 ---
HPI <Dr. Adelaide Carrasco DO - Last Filed: 08/12/23 09:56> History of Present Illness Chief Complaint: Dizziness Informant: patient and EMS Narrative Narrative: Patient is 78-year-old male with history of diabetes, hyperlipidemia, chronic respiratory failure with hypoxia on 3 L oxygen at baseline, COPD, nonischemic cardiomyopathy and chronic heart failure with reduced ejection fraction however his last echocardiogram showed an EF of 55% with stage I diastolic dysfunction and September 2022. He is presenting with dizziness and shortness of breath. Patient states he felt fine yesterday until around 9 PM when he started feel dizzy and short of breath. States is more of a chest tightness. Denies any chest pain. Symptoms are worse when he tried to go to the bathroom. Has some chronic nasal congestion and phlegm in his chest which is unchanged. No increased O2 demands. States he felt restless last night. Denies any fever or chills. Denies any nausea or vomiting. Denies any swelling of his legs. No other complaints or concerns at this time. Reports he does have a history of syncope. Denies any vertigo symptoms. [facility] <Dr. Adelaide Carrasco DO - Last Filed: 08/12/23 09:56> [facility] Medical History BPH (benign prostatic hyperplasia) Chronic HFrEF (heart failure with reduced ejection fraction) Chronic kidney disease (CKD) Chronic respiratory failure with hypoxia, on home oxygen therapy COPD (chronic obstructive pulmonary disease) Essential hypertension Hyperlipidemia Hypoxia Non-ischemic cardiomyopathy Renal calculi Smoking greater than 40 pack years Type 2 diabetes mellitus Home Medications pravastatin 40 mg tablet 40 mg PO QHS cholesterol 03/20/21 [History Last Taken 10/11/21] metformin 500 mg tablet 500 mg PO BID diabetes 08/15/21 [History Last Taken 10/13/21] albuterol sulfate 90 mcg/actuation aerosol inhaler (Ventolin HFA) 2 puff inhalation Q4H PRN PRN Sob &/Or Wheezing #8.5 grams 07/08/22 [Rx Last Taken Unknown] fluticasone fur. 100 mcg-umeclid 62.5 mcg-vilant 25 mcg inhalat.powder (Trelegy Ellipta) 1 inh inhalation DAILY 09/27/22 [History Last Taken Unknown] glimepiride 4 mg tablet 4 mg PO BID 09/27/22 [History Last Taken Unknown] sacubitril 49 mg-valsartan 51 mg tablet (Entresto) See Rx Instructions .Route .COMPLEX #180 tabs 12/02/22 [Rx Last Taken Unknown] carvedilol 12.5 mg tablet 12.5 mg PO BID HTN #180 tabs 02/13/23 [Rx Last Taken Unknown] Allergy/AdvReac Type Severity Reaction Status Date / Time Penicillins Allergy Swelling Verified 08/10/23 06:25 Surgical History H/O tooth extraction Social History Smoking Status: Former smoker Tobacco: How many years used: 30 how long ago did patient quit smoking: quit 04/2021 alcohol intake: never substance use type: does not use caffeine: Yes (1-2 times per week) Type: coffee ROS <Dr. Adelaide Carrasco, DO - Last Filed: 08/12/23 09:56> ROS ED Constitutional Constitutional ED: Denies chills or fever(s) Eyes Eyes: Denies change in vision ENT ENT ED: Reports rhinorrhea; Denies sore throat Cardiovascular Cardiovascular: Denies chest pain or palpitations Respiratory/Chest Respiratory/Chest: Reports cough and dyspnea Gastrointestinal Gastrointestinal: Denies abdominal pain, nausea or vomiting Genitourinary Genitourinary ED: Denies dysuria Musculoskeletal Musculoskeletal: Denies arthralgias or myalgias Integumentary Denies rash Neurologic Neurologic: Denies headache(s), paresthesias or weakness Psychiatric Psychiatric: Denies anxiety Hematologic/Lymphatic Hematologic/Lymphatic: Denies easy bleeding or easy bruising EXAM <Dr. Adelaide Carrasco, DO - Last Filed: 08/12/23 09:56> Physical Exam Const Vital Signs: 08/10/23 06:25 08/10/23 06:32 08/10/23 06:39 Temperature 97.9 F 97.9 F Temperature Source Oral Oral Pulse Rate 79 78 Pulse Rate [Lying] Pulse Rate [Sitting (for 1 minute prior to obtaining)] Pulse Rate [Standing (for 1 minute prior to obtaining)] Respiratory Rate 18 20 H Respiratory Pattern Blood Pressure 158/80 H 158/80 H Blood Pressure [Lying] Blood Pressure [Sitting (for 1 minute prior to obtaining)] Blood Pressure [Standing (for 1 minute prior to obtaining)] Blood Pressure Mean 106 106 Blood Pressure Mean [Lying] Blood Pressure Mean [Sitting (for 1 minute prior to obtaining)] Blood Pressure Mean [Standing (for 1 minute prior to obtaining)] Pulse Ox 98 98 Oxygen Delivery Method Nasal Cannula Nasal Cannula Nasal Cannula Oxygen Flow Rate (L/min) 3 3 3 08/10/23 06:41 08/10/23 07:42 Temperature Temperature Source Pulse Rate 83 Pulse Rate [Lying] 76 Pulse Rate [Sitting (for 1 minute prior to obtaining)] 68 Pulse Rate [Standing (for 1 minute prior to obtaining)] 85 Respiratory Rate 16 Respiratory Pattern Normal Blood Pressure Blood Pressure [Lying] 146/68 H Blood Pressure [Sitting (for 1 minute prior to obtaining)] 165/72 H Blood Pressure [Standing (for 1 minute prior to obtaining)] 118/62 Blood Pressure Mean Blood Pressure Mean [Lying] 94 Blood Pressure Mean [Sitting (for 1 minute prior to obtaining)] 103 Blood Pressure Mean [Standing (for 1 minute prior to obtaining)] 80 Pulse Ox Oxygen Delivery Method Oxygen Flow Rate (L/min) Positive well nourished and well developed General Appearance ED: well developed and NAD HEENT Reports dry mucous membranes Mouth ED: Yes dry mucous membranes Mouth: dry mucous membranes Eyes PERRL Neck supple and no JVD Chest Wall inspection of chest normal and palpation of chest normal Resp normal respiratory effort Resp Narrative: Patient presents throughout with good air movement. Patient does have a wet sounding cough but no significant rhonchi appreciated on auscultation. Cardio regular rate, regular rhythm and no murmurs GI normal to inspection, nondistended, normoactive bowel sounds and non-tender Extremity normal to inspection General Extremety ED: Negative for edema General Extremity: Negative for edema Neuro oriented x3 Sensorium / Orientation: alert Motor Exam: Negative for general weakness Psych mental status grossly normal Skin no rashes or lesions noted and no wounds <Dr. Bony Irby, DO - Last Filed: 08/10/23 09:13> Physical Exam Const Vital Signs: 08/10/23 06:25 08/10/23 06:32 08/10/23 06:39 Temperature 97.9 F 97.9 F Temperature Source Oral Oral Pulse Rate 79 78 Pulse Rate [Lying] Pulse Rate [Sitting (for 1 minute prior to obtaining)] Pulse Rate [Standing (for 1 minute prior to obtaining)] Respiratory Rate 18 20 H Respiratory Pattern Blood Pressure 158/80 H 158/80 H Blood Pressure [Lying] Blood Pressure [Sitting (for 1 minute prior to obtaining)] Blood Pressure [Standing (for 1 minute prior to obtaining)] Blood Pressure Mean 106 106 Blood Pressure Mean [Lying] Blood Pressure Mean [Sitting (for 1 minute prior to obtaining)] Blood Pressure Mean [Standing (for 1 minute prior to obtaining)] Pulse Ox 98 98 Oxygen Delivery Method Nasal Cannula Nasal Cannula Nasal Cannula Oxygen Flow Rate (L/min) 3 3 3 08/10/23 06:41 08/10/23 07:42 Temperature Temperature Source Pulse Rate 83 Pulse Rate [Lying] 76 Pulse Rate [Sitting (for 1 minute prior to obtaining)] 68 Pulse Rate [Standing (for 1 minute prior to obtaining)] 85 Respiratory Rate 16 Respiratory Pattern Normal Blood Pressure Blood Pressure [Lying] 146/68 H Blood Pressure [Sitting (for 1 minute prior to obtaining)] 165/72 H Blood Pressure [Standing (for 1 minute prior to obtaining)] 118/62 Blood Pressure Mean Blood Pressure Mean [Lying] 94 Blood Pressure Mean [Sitting (for 1 minute prior to obtaining)] 103 Blood Pressure Mean [Standing (for 1 minute prior to obtaining)] 80 Pulse Ox Oxygen Delivery Method Oxygen Flow Rate (L/min) [facility] <Dr. Adelaide Carrasco, DO - Last Filed: 08/12/23 09:56> [facility] Narrative Medical decision making narrative: Evaluated for dizziness which seems to be more of a lightheadedness as well as shortness of breath. Patient is 98% on his baseline oxygen. Does not have increased work of breathing. Is moving air well. Presentation not consistent with COPD exacerbation however we will try DuoNeb to see if this helps with his sensation of shortness of breath. He is afebrile. Differential includes pneumonia, less likely CHF exacerbation given that he clinically appears more dehydrated and has no JVD or peripheral edema or crackles. Will obtain a chest x-ray to evaluate the lungs. Will obtain single troponin make sure this is not referred cardiac symptoms. No sex are checked and patient is prostatic positive with standing. He states he was not very symptomatic but he did have a pretty significant drop in his blood pressure from sitting to standing. Will give IV fluids. Will check basic labs to ensure he does not have an IVAN. Patient signed out to oncoming physician pending results and for final disposition. Lab Data Labs: Laboratory Results - last 24 hr 08/10/23 06:50 WBC 7.9 RBC 3.46 L Hgb 11.1 L Hct 35.5 L MCV 102.6 H MCH 32.1 H MCHC 31.3 L RDW Std Deviation 48.5 H RDW Coeff of Naty 12.9 Plt Count 207 MPV 11.2 Immature Gran % (Auto) 0.400 Neut % (Auto) 73.0 H Lymph % (Auto) 15.8 L [place] % (Auto) 6.0 Eos % (Auto) 4.2 Baso % (Auto) 0.6 Absolute Neuts (auto) 5.8 Absolute Lymphs (auto) 1.25 Nucleated RBC % 0 Sodium 141 Potassium 4.3 Chloride 110 H Carbon Dioxide 29.0 Anion Gap 2 L BUN 17 Creatinine 1.73 H Estim Creat Clear Calc 37.73 Est GFR (MDRD) Af Amer 50 L Est GFR (MDRD) Non-Af 41 L BUN/Creatinine Ratio 9.8 L Glucose 89 Calcium 8.7 Troponin I High Sens 10 Radiography Diagnostic Testing: Clinical Impression(s) from Imaging Studies Chest X-Ray 08/10/23 07:50 IMPRESSION: Chronic bibasilar scarring or inflammation. Electronically Signed: Erika Carrizales MD at 8:15 EST Reading Location ID and State: [facility] / [place] Tel , Service support , Rhythm Strip Rhythm Strip: Sinus Rhythm Rate: 72 Ectopy: PVC(s) EKG Initial EKG: Attestation: I personally reviewed and interpreted this EKG as follows: Interpretation: Sinus Rhythm Comments: Sinus rhythm at a rate of 72 bpm Left axis deviation Normal ST segments Low amplitude No change compared to prior EKG on 07/23/2023 <Dr. Bony Irby, DO - Last Filed: 08/10/23 09:13> [facility] Narrative Medical decision making narrative: Evaluated for dizziness which seems to be more of a lightheadedness as well as shortness of breath. Patient is 98% on his baseline oxygen. Does not have increased work of breathing. Is moving air well. Presentation not consistent with COPD exacerbation however we will try DuoNeb to see if this helps with his sensation of shortness of breath. He is afebrile. Differential includes pneumonia, less likely CHF exacerbation given that he clinically appears more dehydrated and has no JVD or peripheral edema or crackles. Will obtain a chest x-ray to evaluate the lungs. Will obtain single troponin make sure this is not referred cardiac symptoms. No sex are checked and patient is prostatic positive with standing. He states he was not very symptomatic but he did have a pretty significant drop in his blood pressure from sitting to standing. Will give IV fluids. Will check basic labs to ensure he does not have an IVAN. Patient signed out to oncoming physician pending results and for final disposition. Patient checked out to me by Dr. Hurt. Patient tells me that he has had difficulty sleeping for a long time. Sometimes he has problems falling asleep sometimes it is maintaining sleep. Today he states that he woke up from sleep and had to urinate. Typically he lays in bed while because he knows if he stands up he will get dizzy/lightheaded. He had to go to the bathroom went to the bathroom urinated and try to get back to the chair. He states that when he was going back to the chair his lightheadedness got worse and he was afraid of falling. He states has had a couple falls in the past and did not want that to happen again. His basic blood work shows a creatinine 1.73 hemoglobin 11.1 normal troponin. My independent rotation of his chest x-ray is chronic changes no acute findings. Patient has been in a sinus rhythm. On the monitor. After liter of fluids nursing states that he has been ambulating without significant difficulty. Patient reassessed and will be discharged home. History & Record Review Discussion w/independent historian: Patient Additional record(s) reviewed:: Prior ED visit and Prior labs Lab Data Attestation: I reviewed the patient's lab results. Labs: Laboratory Results - last 24 hr 08/10/23 06:50 WBC 7.9 RBC 3.46 L Hgb 11.1 L Hct 35.5 L MCV 102.6 H MCH 32.1 H MCHC 31.3 L RDW Std Deviation 48.5 H RDW Coeff of Naty 12.9 Plt Count 207 MPV 11.2 Immature Gran % (Auto) 0.400 Neut % (Auto) 73.0 H Lymph % (Auto) 15.8 L [place] % (Auto) 6.0 Eos % (Auto) 4.2 Baso % (Auto) 0.6 Absolute Neuts (auto) 5.8 Absolute Lymphs (auto) 1.25 Nucleated RBC % 0 Sodium 141 Potassium 4.3 Chloride 110 H Carbon Dioxide 29.0 Anion Gap 2 L BUN 17 Creatinine 1.73 H Estim Creat Clear Calc 37.73 Est GFR (MDRD) Af Amer 50 L Est GFR (MDRD) Non-Af 41 L BUN/Creatinine Ratio 9.8 L Glucose 89 Calcium 8.7 Troponin I High Sens 10 Radiography Diagnostic Testing: Clinical Impression(s) from Imaging Studies Chest X-Ray 08/10/23 07:50 IMPRESSION: Chronic bibasilar scarring or inflammation. Electronically Signed: Erika Carrizales MD at 8:15 EST Reading Location ID and State: [facility] / [place] Tel , Service support , Discharge Plan Triage Chief Complaint: Dizziness Other Complaint: Shortness of Breath ED Provider: Adelaide Carrasco Dx/Rx/DC Orders Clinical Impression: Dizziness, Orthostasis, Chronic HFrEF (heart failure with reduced ejection fraction), COPD (chronic obstructive pulmonary disease) Instructions: ED Dizziness, Uncertain Cause Prescriptions: No Action pravastatin 40 mg tablet 40 mg PO QHS metformin 500 mg tablet 500 mg PO BID albuterol sulfate [Ventolin HFA] 90 mcg/actuation HFA aerosol inhaler 2 puff inhalation Q4H PRN PRN (Reason: Sob &/Or Wheezing) Qty: 8.5 11RF glimepiride 4 mg tablet 4 mg PO BID Trelegy Ellipta 100-62.5-25 mcg blister with device 1 inh inhalation DAILY Entresto 49-51 mg tablet See Rx Instructions .ROUTE .COMPLEX Qty: 180 3RF Dose Instruction: TAKE 1 TABLET TWICE DAILY Rx Instructions: TAKE 1 TABLET TWICE DAILY carvedilol 12.5 mg tablet 12.5 mg PO BID Qty: 180 3RF Primary Care Provider: Silvano Sandy Chi Referrals: Silvano Sandy Chi, MD [Primary Care Provider] - Keep [facility] appointment Disposition Disposition: Home, Self Care Discharge Date/Time: 08/10/23 09:47
[2023-08-10 07:05] LABS: Absolute Lymphocyte Count 1.25 X10^3/uL (0.83-4.51); Absolute Neutrophil Count 5.8 X10^3/uL (2.0-7.7); Basophil# 0.05 X10^3/uL; Basophil% 0.6 % (0-1); Eosinophil# 0.33 X10^3/uL; Eosinophils% 4.2 % (0-5); Hematocrit 35.5 % (40-54); Hemoglobin 11.1 g/dL (13.0-16.5); Lymphocyte # 1.25 X10^3/ul (0.83-4.51); Lymphocyte % 15.8 % (19-41); Mean Corp Hgb Conc 31.3 g/dL (32-36); Mean Corpuscular Hgb 32.1 pg (27.0-32.0); Mean Corpuscular Volume 102.6 fL (80-94); Mean Platelet Vol. 11.2 fl (6.2-12.0); Monocyte# 0.47 X10^3/uL; NRBC Flagged by Analyzer 0 % (0-5); Neutrophil # 5.76 X10^3/uL (2.7-7.7); Platelet Count 207 K/mm3 (150-450); RBC Distribution Width CV 12.9 % (11.6-14.6); RBC Distribution Width SD 48.5 fl (35.1-43.9); Red Blood Count 3.46 M/mm3 (4.6-6.2); White Blood Count 7.9 K/mm3 (4.4-11.0)
[2023-08-10 07:15] LABS: Anion Gap 2 (5-15); BUN 17 mg/dL (7-18); BUN/Creat Ratio 9.8 RATIO (10-20); Calcium,Total 8.7 mg/dL (8.5-10.1); Chloride 110 mmol/L (98-107); Creatinine, Serum 1.73 mg/dL (0.70-1.30); EST Glomerular Filtration Rate 41 mL/min (>60); Est Glom Filt Rate - Afr Amer 50 mL/min (>60); Estimated Creatinine Clearance 37.73 ml/min; Glucose 89 mg/dL (74-106); Potassium 4.3 mmol/L (3.5-5.1); Sodium Level 141 mmol/L (136-145); Troponin-I HS 10 pg/mL (3.0-78.0)
[2023-08-10] MEDS: Ipratropium/Albuterol Sulfate 3 ML AMPUL.NEB INHALATION (07:39)
[2023-08-10 07:42] VITALS: PULSE 83; RESP 16
--- NOTE | 2023-08-10 07:50 | RAD_ITS ---
HISTORY: SOB, cough. TECHNIQUE: XR Chest 2 Views. COMPARISON: 07/23/2023. FINDINGS: CARDIOMEDIASTINAL BORDERS: Cardiac silhouette within normal limits in size. Mediastinal contour unremarkable with calcification of the aorta. LUNGS: Hyperinflation with upper lobe lucency, compatible with COPD. Mild bibasilar opacities, similar to prior. Chronic bibasilar opacities. PLEURA: No pleural effusion or pneumothorax seen. OSSEOUS STRUCTURES: Degenerative change. RAD/Chest PA and Lateral IMPRESSION: Chronic bibasilar scarring or inflammation. Electronically Signed: Erika Carrizales MD at 8:15 EST ,
[2023-08-10 09:32] VITALS: BP 112/76; PULSE 72; RESP 15; O2SAT 98
== END 2023-08-10 09:47 | disposition home or self-care (01) ==
PROVIDERS: Emergency Provider Emergency Medicine; PCP Family Medicine Geriatric Medicine; Visit Provider Emergency Medicine
DX: R42 Dizziness and giddiness (principal); J44.9 Chronic obstructive pulmonary disease, unspecified; I13.0 Hypertensive heart and chronic kidney disease with heart failure and stage 1 through stage 4 chronic kidney disease, or unspecified chronic kidney disease; I50.22 Chronic systolic (congestive) heart failure; E11.22 Type 2 diabetes mellitus with diabetic chronic kidney disease; J96.11 Chronic respiratory failure with hypoxia; I95.1 Orthostatic hypotension; E78.5 Hyperlipidemia, unspecified; N18.9 Chronic kidney disease, unspecified; Z99.81 Dependence on supplemental oxygen; Z79.84 Long term (current) use of oral hypoglycemic drugs; Z79.899 Other long term (current) drug therapy; Z87.891 Personal history of nicotine dependence
CPT/HCPCS: 71046; 80048; 84484; 85025; 87428; 93005; 94640; 96360; 99284; J7030; A4216

== ENCOUNTER → 2023-08-13 | Outpatient (CLI) | payer MEDICARE, SELFPAY ==
--- NOTE | 2023-08-13 15:47 | RAD_ITS ---
STUDY: X-RAY - LUMBAR SPINE REASON FOR EXAM: Male, 78 years old. Back pain TECHNIQUE: 2 view(s) of the lumbar spine were obtained. COMPARISON: None FINDINGS: Osteopenia. Normal lumbar lordosis. No substantial scoliosis. Normal alignment of the vertebrae. Diffuse lower thoracic and lumbosacral facet sclerosis. Diffuse mild intervertebral disc space narrowing with small osteophytes at L2-3, L3-4 and L4-5. Multiple calcifications projected over both renal outlines, right greater than left. Marked vascular calcification. Phleboliths. RAD/Lumbar Spine 2 or 3 Views IMPRESSION: Osteopenia with mild diffuse lower thoracic and lumbosacral spondylosis. Bilateral nephrocalcinosis. Electronically Signed: Tylor Luke MD at 13:53 EST ,
== END | disposition home or self-care (01) ==
LOC: RAD 15:38
PROVIDERS: PCP Family Medicine Geriatric Medicine; Referring Provider Anesthesiology Pain Medicine; Visit Provider Anesthesiology Pain Medicine
DX: M51.36 Other intervertebral disc degeneration, lumbar region (principal); M51.26 Other intervertebral disc displacement, lumbar region
CPT/HCPCS: 72100